=== PATIENT | male | born 1935 | race Caucasian/White ===

== ENCOUNTER 2018-01-20 16:41 | Inpatient (IN) | payer MEDICARE ==
[~2018-01-20 16:41] MED LIST: Iopamidol 370 76% 50 ML VIAL FS ONE
[2018-01-20 17:34] LABS: #Eosinphils 0.3 thou/uL (0.0-0.7); #Lymphocytes 1.1 thou/uL (1.20-3.40); #Monocytes 0.7 thou/uL (0.11-0.59); #Neutrophils 3.7 thou/uL (1.40-6.50); %Basophils 0.5 % (0.0-1.0); %Eosinophils 4.9 % (0.0-10.0); %Lymphocytes 18.6 % (21.0-51.0); %Monocytes 12.1 % (0.0-10.0); %Neutrophils 63.9 % (42.0-75.0); Mean Corpuscular HGB CONC 33.1 g/dL (32.0-36.0); Mean Corpuscular Hemoglobin 32.8 pg (27.0-31.0); Mean Corpuscular Volume 99.4 fL (78.0-98.0); Mean Platelet Volume 7.3 fL (7.4-10.4); Platelet Count 174 thou/uL (130-400); RBC Distribution Width 12.9 % (11.5-14.5); Red Blood Cell (RBC) Count 3.05 mill/uL (4.70-6.10); White Blood Cell (WBC) Count 5.7 thou/uL (4.8-10.8)
[2018-01-20] MEDS ORDERED: Pantoprazole 40 MG VIAL ONE (17:39)
[2018-01-20 17:41] LABS: INR-International Normal Ratio 1.3; PTT 29.9 SEC (22.9-36.1); Prothrombin Time 16.4 SEC (12.0-14.7)
[2018-01-20] MEDS ORDERED: Pantoprazole 40 MG VIAL IVP SCH (17:45)
[2018-01-20 18:00] LABS: ALT (SGPT) 25 U/L (8-55); AST (SGOT) 29 U/L (5-34); Albumin 3.9 g/dL (3.4-4.8); Alkaline Phosphatase 84 U/L (40-150); Anion Gap 14 mmol/L (10-20); BUN (Urea Nitrogen) 47 mg/dL (8.4-25.7); Bilirubin, Total 0.5 mg/dL (0.2-1.2); Calc. Creatinine Clearance 0 mL/min (70-130); Calcium 9.8 mg/dL (7.8-10.44); Carbon Dioxide 26 mmol/L (23-31); Chloride 105 mmol/L (98-107); Estimated GFR-MDRD 41; Glucose 219 mg/dL (83-110); Potassium 4.3 mmol/L (3.5-5.1); Protein, Total 6.9 g/dL (5.8-8.1); Sodium 141 mmol/L (136-145)
[2018-01-20] MEDS ORDERED: Acetaminophen 325 MG TAB PO PRN (21:14)
[2018-01-20] MEDS ORDERED: Senokot S 8.6-50 MG TAB PO PRN (21:14)
[2018-01-20] MEDS ORDERED: Acetaminophen 650 MG Suppository PR PRN (21:14)
[2018-01-20] MEDS ORDERED: Dextrose 5% in Water 1,000 ML IV PRN (21:20)
[2018-01-20] MEDS ORDERED: Dextrose 50% Abboject 50 ML SYRINGE SLOW IVP PRN (21:20)
--- NOTE | 2018-01-20 21:52 | HP ---
PRIMARY CARE PHYSICIAN: Taina Blair MD CHIEF COMPLAINT: Black stools. HISTORY OF PRESENT ILLNESS: Mr. Faith is a pleasant 82-year-old gentleman who was seen at [facility] on 02/19/2018. He uses rivaroxaban for atrial fibrillation. He reports that over the last several weeks, he has had increasing stress because of both work as well as problems at home with his , who had recent str nida and probable dementia. He reports that one week ago, he started having black stools. I did not think much of it. He denies any use of iron supplements. He reports feeling lightheaded. He also r eports feeling shortness of breath on exertion. He reports that he lost 12 pounds in the last one mo nth, this was intentional. However, he reports that his abdomen has been growing in size. He had hi s blood work checked through his primary care provider and was advised to go to the emergency room be cause of low hemoglobin. Patient also reports on and off abdominal discomfort but is unable to mary cterize it further. REVIEW OF SYSTEMS: All other systems reviewed and found to be negative. PAST MEDICAL HISTORY: Atrial fibrillation, hypertension, diabetes mellitus type 2, and coronary alberto ry disease. His brush maker machine is Dr. Sinha. PAST SURGICAL HISTORY: Bilateral foot surgery, left knee surgery, cardiac stent, coronary artery byp ass graft, ablation, cataract surgery, inguinal hernia/umbilical surgery, and appendectomy. FAMILY HISTORY: No family history of premature coronary artery disease. SOCIAL HISTORY: Patient drinks two alcoholic drinks a day. He denies any tobacco use or recreationa l drug use. CODE STATUS: I discussed his code status. He is FULL CODE. ALLERGIES: No known drug allergies. CURRENT MEDICATIONS: Coreg 3.125 mg 2 times a day, metformin 500 mg 2 times a day, potassium chlorid e 10 mEq daily, glyburide 5 mg 2 times a day, torsemide 30 mg daily, and amiodarone 100 mg at bedtime . PHYSICAL EXAMINATION: GENERAL: Mr. Faith is awake and alert, not in acute distress. VITAL SIGNS: Blood pressure is 138/64, pulse 65, respiratory rate 16, and oxygen saturation 95% on r oom air. He is afebrile. EYES: No scleral icterus. No conjunctival pallor. ENT: Moist mucosal membranes, no oropharyngeal erythema or exudate. NECK: Supple, nontender, trachea is midline. RESPIRATORY: Accessory muscles of breathing are not active. Chest wall movements are symmetric bila terally. LUNGS: Clear to auscultation, without wheeze, rhonchi, or crepitations. CARDIOVASCULAR: S1 and S2 are heard, regular. Peripheral pulses palpable. No carotid bruit, no per icardial rub. ABDOMEN: Mild diffuse abdominal tenderness. No guarding or rigidity, bowel sounds heard, no hepatom egaly, no splenomegaly. LYMPHATIC: No cervical lymphadenopathy. SKIN: No rashes or subcutaneous nodules. NEUROLOGIC: Cranial nerves II through XII intact. Deep tendon reflexes are 2+. PSYCHIATRIC: Normal mood, normal affect, patient is oriented to person, place and time. LABORATORY DATA: Mr. Faith's labs and investigations were reviewed. He had an electrocardiogram , which shows normal sinus rhythm, no ST changes to suggest an acute coronary syndrome. He has rehana l white count, macrocytic anemia with hemoglobin 10.0, hemoglobin was 13.4 in 07/2017, normal platele t count. INR 1.3, normal electrolytes, elevated blood urea nitrogen of 47, elevated creatinine of 1. 61, creatinine was 1.38 on 01/19/2018, and 1.52 on 09/29/2017 and an unremarkable liver profile. ASSESSMENT AND PLAN: Mr. Faith is a pleasant 82-year-old gentleman who was seen at [facility] on 01/20/2018. His problem list includes: 1. Anemia of acute blood loss. Mr. Faith is presenting with anemia of acute blood loss in the c ontext of using rivaroxaban for atrial fibrillation. He will be admitted to the hospital for further management. We will start him on PPI drip. I will consult GI Service for opinion and help with man agement. 2. Symptomatic anemia: We will recheck hemoglobin and transfuse as needed. 3. History of atrial fibrillation. Rivaroxaban will be held because of GI bleed. We will consult C ardiology Service for management of atrial fibrillation while he is in the hospital. 4. Coronary artery disease: Appears to be stable. 5. Diabetes mellitus, type 2: Start Accu-Cheks and insulin sliding scale. 6. Hypertension: Monitor vital signs, titrate antihypertensives as needed. Many thanks for allowing me to participate in your patient's care. Please feel free to contact me wi th any questions or concerns. LEVEL OF RISK: Moderate. LEVEL OF COMPLEXITY: Moderate.
[2018-01-20 22:03] LABS: Hemoglobin 8.6 g/dL (14.0-18.0)
--- NOTE | 2018-01-20 22:47 | CT ---
CT OF THE ABDOMEN AND PELVIS WITH IV CONTRAST; 01/20/18 INDICATION: History of abdominal pain. FINDINGS: There is a small left pleural effusion. There is mild bibasilar atelectasis. There is a small gastric diverticulum off the posterior cardia. There is a small hiatal hernia. There are tiny hypodensities involving the right hepatic lobe, difficult to characterize due to their size. Adrenal glands appear within normal limits. There is a 3.6 cm cyst involving the superior pole of the right kidney. No drainable fluid collection is evident. The bladder is unremarkable. There is scattered diverticula involving the colon without evidence of active diverticulitis. There is a moderate amount of retained stool within the colon. There is scattered degenerative and osteoarthritic change. No definite acute osseous abnormality is e vident. IMPRESSION: 1. No CT evidence to explain the patient's abdominal pain. 2. Tiny right hepatic lobe hypodensities, too small to characterize. 3. Small gastric diverticulum. 4. Small hiatal hernia. 5. Small left pleural effusion. 6. Right renal cyst. 7. Colonic diverticulosis. POS: [facility]
[2018-01-20 23:51] VITALS: BMI 24.9
[2018-01-21] MEDS: Pantoprazole 80 MG in Sodium Chloride 0.9% 100 ML IVP SCH (04:42)
[2018-01-21 05:21] LABS: #Eosinphils 0.3 thou/uL (0.0-0.7); #Lymphocytes 1.1 thou/uL (1.20-3.40); #Monocytes 0.8 thou/uL (0.11-0.59); #Neutrophils 3.7 thou/uL (1.40-6.50); %Basophils 0.6 % (0.0-1.0); %Eosinophils 4.8 % (0.0-10.0); %Lymphocytes 18.6 % (21.0-51.0); %Monocytes 14.1 % (0.0-10.0); Hemoglobin 9.1 g/dL (14.0-18.0); Mean Corpuscular HGB CONC 32.9 g/dL (32.0-36.0); Mean Platelet Volume 7.7 fL (7.4-10.4); Platelet Count 150 thou/uL (130-400); RBC Distribution Width 12.7 % (11.5-14.5); Red Blood Cell (RBC) Count 2.76 mill/uL (4.70-6.10)
[2018-01-21 05:38] LABS: Anion Gap 12 mmol/L (10-20); BUN (Urea Nitrogen) 42 mg/dL (8.4-25.7); Calc. Creatinine Clearance 52 mL/min (70-130); Calcium 9.2 mg/dL (7.8-10.44); Carbon Dioxide 26 mmol/L (23-31); Chloride 106 mmol/L (98-107); Estimated GFR-MDRD 49; Glucose 212 mg/dL (83-110); Potassium 4.3 mmol/L (3.5-5.1); Sodium 140 mmol/L (136-145)
[2018-01-21] MEDS ORDERED: Amiodarone 200 MG TAB PO SCH (10:00)
--- NOTE | 2018-01-21 10:12 | CON ---
DATE OF CONSULTATION: 01/21/2018 REASON FOR CONSULTATION: 1. Gastrointestinal bleeding 2. History of atrial fibrillation. HISTORY OF PRESENT ILLNESS: Mr. Faith is a delightful 82-year-old gentleman who was admitted to the hospital after having recurrent black stools. He has been transferred here for further evaluatio n. The patient also has been having abdominal pain. From a cardiac standpoint, the patient does have a previous cardiac history. He did undergo coronary artery bypass grafting in the past for multivessel coronary disease. He has also undergone stenting in the left anterior descending artery in 2001. The bypass surgery was done previously. He did und ergo cardiac catheterization 12/2011 with multi-vessel coronary disease. The patient has also undergone atrial fibrillation ablation in 2014 and also atrial flutter ablation. The patient does have history of congestive heart failure, systolic, with most recent ejection fracti on 30-35%. Clinically, stable. The coronary artery bypass grafting was done in the past. We will attempt to obtain the dates. He d id undergo cardioversion in the past, I know at least in 2016 that was done. Reviewing the records, he did undergo coronary artery bypass grafting by Dr. Mahajan in 2011 for unstable angina, he had left main and 3-vessel coronary artery disease, had bypass x5 internal mammary in sequence to the mid and distal LAD, vein graft to the ramus, vein graft to the first obtuse marginal, vein graft to the dist al right coronary artery. MEDICATIONS: Medications which were listed most recently in the office are very different from what is listed in his medicine list here. The listed medicine most recently in our office with amiodaron e 100 mg a day, aspirin 81 mg a day, Savaysa 60 mg a day, but now he says he is on Xarelto, Torsemide 10 mg a day, lisinopril 5 mg a day, carvedilol 3.125 mg a day. Diltiazem is not listed. We will ne ed to further check his medicine list. ALLERGIES: Not known. REVIEW OF SYSTEMS: CONSTITUTIONAL: No significant weight gain or loss. VISION: No changes. HEARING: No changes. PULMONARY: No cough or wheezing. GASTROINTESTINAL: Positive for black stools. SKIN: No rashes. NEUROLOGIC: No unilateral weakness or numbness. PSYCHIATRIC: No unusual depression or anxiety. HEMATOLOGIC: No unusual bruising. GENITOURINARY: No burning with urination. PHYSICAL EXAMINATION: GENERAL: This is a pleasant elderly gentleman resting comfortably, no complaints. VITAL SIGNS: Blood pressure 160/70, pulse 58 regular. HEENT: Eyes; sclerae nonicteric. Mouth; mucous membranes moist. NECK: Supple, no lymphadenopathy. LUNGS: Clear, no wheezing, rales or rhonchi. CARDIAC: Normal S1, normal S2. There is no murmur, rub or gallop. ABDOMEN: Soft, nontender, no hepatosplenomegaly. EXTREMITIES: Warm, dry. No clubbing or cyanosis. There is no edema. PERTINENT LABORATORY AND X-RAY FINDINGS: Creatinine initially was 1.6, followed by 1.39. EKG sinus rhythm with what looks like a left bundle branch block, QRS 0.134. ASSESSMENT: 1. Congestive heart failure, systolic, chronic. 2. Left bundle branch block. 3. Currently in sinus rhythm. 4. Paroxysmal atrial fibrillation. 5. Gastrointestinal bleeding. PLAN: 1. I agree with holding anticoagulant and aspirin. 2. Proceed with endoscopy. 3. We will need to clarify medication list. The medicine list in the chart seems to be very differe nt from what is listed in his previous notes. The emergency room medicine list appears more accurate . 4. We will wait for results of endoscopy. We will follow with you. He is also on intravenous augusto n pump inhibitor.
--- NOTE | 2018-01-21 10:54 | PDOC.PN ---
- Subjective Encounter Start Date: 01/21/18 Encounter Start Time: 10:51 Mr. Faith was seen today in follow-up of GI bleed. He says he feels a bit tired and weak, but otherwise ok. - Objective Resuscitation Status: Resuscitation Status FULL:Full Resuscitation MAR Reviewed: Yes Vital Signs & Weight: Vital Signs (12 hours) Temp Pulse Resp BP Pulse Ox 01/21/18 08:20 97.6 F 58 L 20 161/73 H 98 01/21/18 04:50 98.1 F 64 18 149/72 H 96 01/20/18 23:30 97.9 F 63 18 164/77 H 97 Weight Weight 199 lb 9 oz I&O: 01/20/18 01/21/18 01/22/18 06:59 06:59 06:59 Intake Total 0 Output Total 225 Balance -225 Result Diagrams: 01/21/18 04:27 01/21/18 04:27 Additional Labs: Accuchecks 01/21/18 05:35 POC Glucose 217 H Phys Exam - Physical Examination HEENT: PERRLA Respiratory: no wheezing, no rales, no rhonchi, clear to auscultation bilateral Cardiovascular: RRR, no significant murmur, no rub Gastrointestinal: soft, non-tender, no distention, positive bowel sounds Musculoskeletal: no edema, pulses present Dx/Plan (1) Melena Code(s): K92.1 - MELENA Status: Acute (2) Atrial fibrillation Code(s): I48.91 - UNSPECIFIED ATRIAL FIBRILLATION Status: Chronic (3) Diabetes mellitus type 2 in obese Code(s): E11.69 - TYPE 2 DIABETES MELLITUS WITH OTHER SPECIFIED COMPLICATION; E66.9 - OBESITY, UNSPECIFIED Status: Chronic (4) Coronary artery disease Code(s): I25.10 - ATHSCL HEART DISEASE OF [place] CORONARY ARTERY W/O ANG PCTRS Status: Chronic (5) Hypertension Code(s): I10 - ESSENTIAL (PRIMARY) HYPERTENSION Status: Chronic - Plan * Melena and GI bleed- continue PPI- and continue to monitor his H&H- transfuse if HGB drops below 7.0 or if symptomatic * Awaiting GI input * AFIB- his heart rate is stable- Xarelto is on hold- Cardiology is consulted * DM- Continue SSI while NPO * CAD- stable. * HTN- blood pressure is a bit elevated- will add Hydralazine and Labetolol PRN
[2018-01-21] MEDS ORDERED: Labetalol HCl 100 MG/20 ML VIAL SLOW IVP PRN (10:58)
[2018-01-21] MEDS ORDERED: hydrALAZINE 20 MG/ML VIAL SLOW IVP PRN (10:58)
[2018-01-21] MEDS ORDERED: GoLYTELY 4,000 ml Bottle PO SCH (16:00)
[2018-01-21] MEDS: Carvedilol 3.125 MG TAB PO SCH (17:10)
--- NOTE | 2018-01-21 19:10 | CON ---
DATE OF CONSULTATION: 01/21/2018. CHIEF COMPLAINT: Black stools. HISTORY OF PRESENT ILLNESS: Mr. Faith is an 82-year-old man who is on Xarelto for history of par oxysmal atrial fibrillation and CHF who has noticed black stools over the last week. He has 1 bowel movement per day every day at 5:30 a.m. Over the last week, it was gradually becoming darker and savannah ker and he saw his primary care physician who advised to come on to [facility] to get this checked out mor ofelia immediately. He has had no abdominal pain. He has lost from 210 pounds down to 193 pounds over e last couple of months. He states that he is doing this on purpose with a decrease in volume of his meals. He has had also hard stools over the last week, having to strain at bowel movements more. Surinder gilbert has had some abdominal bloating and generalized discomfort along with that. His last colonoscopy w as maybe around 12 years ago at the [place]. PAST MEDICAL HISTORY: Coronary artery disease, congestive heart failure, diabetes mellitus type 2, h ypertension. PAST SURGICAL HISTORY: Coronary artery bypass graft, inguinal hernia repair with umbilical hernia re pair, cataract surgery, appendectomy, knee surgery, foot surgery. FAMILY HISTORY: Negative for GI malignancies. SOCIAL HISTORY: He has a couple of drinks of alcohol per day. No smoking, no drugs. ALLERGIES: No known drug allergies. MEDICATIONS: Prior to admission, 1. Coreg. 2. Metformin. 3. Potassium chloride. 4. Glyburide. 5. Torsemide. 6. Amiodarone. 7. Xarelto. REVIEW OF SYSTEMS: Negative x10 systems reviewed except as stated in history of present illness. PHYSICAL EXAMINATION: VITAL SIGNS: Temperature is 97.6, pulse 58, blood pressure 161/73. GENERAL: He is in no acute distress. He is alert and oriented x3. HEENT: Eyes have no scleral icterus. Oropharynx is clear, without lesions. NECK: No cervical or supraclavicular lymphadenopathy. LUNGS: Clear to auscultation bilaterally. HEART: Regular rate and rhythm without murmur. ABDOMEN: Soft, nontender, nondistended, bowel sounds are present. EXTREMITIES: No lower extremity edema. LABORATORY DATA: White blood cell count 6.0, hemoglobin 9.1. Baseline hemoglobin from last July was 13.4, his MCV is 100, platelets 150. INR 1.3, creatinine 1.39, bilirubin 0.5, AST 29, ALT 25, alkali ne phosphatase 84, ferritin 144, albumin 3.9. He had a CT scan of the abdomen and pelvis which was unremarkable overall. A small hiatal hernia was noted and diverticulosis of the colon and a small gastric diverticulum were seen. IMPRESSION: 1. Melena. He has had black stools once a day for the last week. He does have anemia with a drop i n his baseline hemoglobin from last July of 13.4 to 9.1 now. It is not clear if this is truly an acut e overt bleed. On rectal exam now, his stool was more of a dark brown than a true melena. He is mac rocytic with a normal ferritin. He is on Xarelto and we want to rule out a significant bleeding sour ce. 2. Paroxysmal atrial fibrillation and congestive heart failure on Xarelto with his last dose of Xare lto the night before last. RECOMMENDATIONS: EGD and colonoscopy tomorrow morning. We will start a clear liquid diet and bowel prep today.
[2018-01-22] MEDS: Pantoprazole 80 MG in Sodium Chloride 0.9% 100 ML IVP SCH (00:01)
[2018-01-22 05:23] LABS: #Lymphocytes 0.8 thou/uL (1.20-3.40); #Monocytes 0.8 thou/uL (0.11-0.59); #Neutrophils 4.5 thou/uL (1.40-6.50); %Basophils 0.3 % (0.0-1.0); %Eosinophils 0.8 % (0.0-10.0); %Lymphocytes 13.1 % (21.0-51.0); %Monocytes 13.2 % (0.0-10.0); %Neutrophils 72.6 % (42.0-75.0); Hemoglobin 7.9 g/dL (14.0-18.0); Mean Corpuscular HGB CONC 32.4 g/dL (32.0-36.0); Mean Corpuscular Hemoglobin 32.4 pg (27.0-31.0); Mean Platelet Volume 7.7 fL (7.4-10.4); Platelet Count 146 thou/uL (130-400); RBC Distribution Width 12.7 % (11.5-14.5); Red Blood Cell (RBC) Count 2.42 mill/uL (4.70-6.10); White Blood Cell (WBC) Count 6.3 thou/uL (4.8-10.8)
[2018-01-22] MEDS: Carvedilol 3.125 MG TAB PO SCH ×2 (06:22→17:12)
[2018-01-22] MEDS ORDERED: PHENYLEPHRINE-NS 100 MCG/ML 10 ML SYRINGE ONE (11:39)
[2018-01-22] MEDS ORDERED: ePHEDrine/0.9% NaCl/PF SYRINGE 50 mg/10 ml ONE (11:39)
[2018-01-22] MEDS ORDERED: PROPOFOL 200 MG/20 ML VIAL ONE (11:39)
--- NOTE | 2018-01-22 12:41 | PDOC.PN ---
- Subjective Encounter Start Date: 01/22/18 Encounter Start Time: 09:10 Mr. Faith was seen today in follow-up of GI Bleed. He notes some dark stools until about 3:00AM this morning. He says however he feels better today , and denies feeling weakn tired or short of breath, nor dizzy or lightheaded. - Objective Resuscitation Status: Resuscitation Status FULL:Full Resuscitation MAR Reviewed: Yes Vital Signs & Weight: Vital Signs (12 hours) Temp Pulse Resp BP Pulse Ox 01/22/18 07:39 98 F 69 16 132/77 95 01/22/18 04:00 98.6 F 69 20 118/62 94 L Weight Weight 198 lb 8 oz I&O: 01/21/18 01/22/18 01/23/18 06:59 06:59 06:59 Intake Total 0 5790 Output Total 225 1350 Balance -225 4440 Result Diagrams: 01/22/18 04:17 01/21/18 04:27 Additional Labs: Accuchecks 01/22/18 01/21/18 01/21/18 06:12 20:21 17:20 POC Glucose 202 H 244 H 363 H Phys Exam - Physical Examination HEENT: PERRLA Respiratory: no wheezing, no rales, no rhonchi, clear to auscultation bilateral Cardiovascular: RRR, no significant murmur, no rub no gallop Gastrointestinal: soft, non-tender, no distention, positive bowel sounds Musculoskeletal: no edema, pulses present + chronic venous stasis changes Dx/Plan (1) Melena Code(s): K92.1 - MELENA Status: Acute (2) Atrial fibrillation Code(s): I48.91 - UNSPECIFIED ATRIAL FIBRILLATION Status: Chronic (3) Diabetes mellitus type 2 in obese Code(s): E11.69 - TYPE 2 DIABETES MELLITUS WITH OTHER SPECIFIED COMPLICATION; E66.9 - OBESITY, UNSPECIFIED Status: Chronic (4) Coronary artery disease Code(s): I25.10 - ATHSCL HEART DISEASE OF [place] CORONARY ARTERY W/O ANG PCTRS Status: Chronic (5) Hypertension Code(s): I10 - ESSENTIAL (PRIMARY) HYPERTENSION Status: Chronic - Plan * Melena- patient's H&H is 7.9 this morning, a significant drop since admission , he is however asymptomatic- will continue to monitor, and transfuse if necessary. He will have EGD and Colonoscopy this morning * AFIB- his hear rate has been stable- continue to hold Xarelto * DM- blood glucose is a bit elevated- will re-start his home medications once he is tolerating p.o. ( Metformin and Glyburide ). * HTN- blood pressure is stable
--- NOTE | 2018-01-22 12:47 | OP ---
DATE OF PROCEDURE: 01/21/2018 PROCEDURE: Esophagogastroduodenoscopy and colonoscopy with snare polypectomy. PREOPERATIVE DIAGNOSES: Gastrointestinal bleed and anemia. OPERATIVE NOTE: Informed consent was obtained from the patient. He was sedated with total intraveno us anesthesia. The bite block was placed and the endoscope was advanced easily to the second portion of the duodenum and retroflexion was performed in the stomach. The esophagus was normal. The GE ju nction was normal. The stomach was normal including retroflexed views. The pylorus and first and se cond portions of the duodenum were normal. The stomach did not initially distend well, but ultimatel y adequate views were obtained. The patient was turned around. Rectal exam was performed and was no rmal. The colonoscope was advanced to the cecum where the ileocecal valve and appendiceal orifice we re clearly identified. There was diverticulosis throughout the left colon. A 4 mm polyp was removed by cold snare polypectomy from the ascending colon. The remainder of the colonic mucosa was normal. There was old yellow and green stool scattered in the colon without any stigmata of recent bleeding . IMPRESSION: 1. Normal esophagogastroduodenoscopy. 2. Left-sided diverticulosis. 3. A 4 mm polyp removed from the ascending colon by cold snare. 4. Otherwise, normal colonoscopy to the cecum. 5. No stigmata of recent bleeding. RECOMMENDATIONS: 1. Check the trend of the hemoglobin tomorrow. 2. Change to oral pantoprazole. 3. Await histopathology. 4. If you develop signs of overt bleeding, then check a bleeding scan.
[2018-01-22] MEDS: Amiodarone 200 MG TAB PO SCH (13:16)
[2018-01-22] MEDS: HumaLOG 300 UNITS/3 ML VIAL SC PRN (17:13)
[2018-01-23 05:52] LABS: #Eosinphils 0.1 thou/uL (0.0-0.7); #Lymphocytes 0.9 thou/uL (1.20-3.40); #Monocytes 0.7 thou/uL (0.11-0.59); #Neutrophils 3.9 thou/uL (1.40-6.50); %Basophils 0.3 % (0.0-1.0); %Eosinophils 2.3 % (0.0-10.0); %Lymphocytes 15.4 % (21.0-51.0); %Monocytes 12.9 % (0.0-10.0); %Neutrophils 69.2 % (42.0-75.0); Hemoglobin 7.9 g/dL (14.0-18.0); Mean Corpuscular HGB CONC 32.8 g/dL (32.0-36.0); Mean Corpuscular Hemoglobin 33.1 pg (27.0-31.0); Platelet Count 135 thou/uL (130-400); RBC Distribution Width 12.6 % (11.5-14.5); White Blood Cell (WBC) Count 5.6 thou/uL (4.8-10.8)
[2018-01-23 06:18] LABS: ALT (SGPT) 13 U/L (8-55); AST (SGOT) 19 U/L (5-34); Alkaline Phosphatase 58 U/L (40-150); Anion Gap 10 mmol/L (10-20); BUN (Urea Nitrogen) 19 mg/dL (8.4-25.7); Calc. Creatinine Clearance 66 mL/min (70-130); Calcium 8.3 mg/dL (7.8-10.44); Carbon Dioxide 27 mmol/L (23-31); Chloride 100 mmol/L (98-107); Estimated GFR-MDRD 62; Globulin 2.4 g/dL (2.4-3.5); Glucose 186 mg/dL (83-110); Potassium 3.2 mmol/L (3.5-5.1); Protein, Total 5.4 g/dL (5.8-8.1); Sodium 134 mmol/L (136-145)
[2018-01-23] MEDS: Amiodarone 200 MG TAB PO SCH (08:34)
[2018-01-23] MEDS: Carvedilol 3.125 MG TAB PO SCH ×2 (08:36→17:31)
[2018-01-23] MEDS: HumaLOG 300 UNITS/3 ML VIAL SC PRN ×3 (08:36→17:32)
[2018-01-23] MEDS ORDERED: Potassium Chloride 20 MEQ TAB PO SCH (11:00)
--- NOTE | 2018-01-23 12:24 | PDOC.PN ---
- Subjective Encounter Start Date: 01/23/18 Encounter Start Time: 12:22 Mr. Duggan was seen today in follow-up of GI bleed. He says he feels fine. He has not noted any further bleeding. - Objective Resuscitation Status: Resuscitation Status FULL:Full Resuscitation MAR Reviewed: Yes Vital Signs & Weight: Vital Signs (12 hours) Temp Pulse Resp BP BP Pulse Ox 01/23/18 11:41 98 F 59 L 18 139/63 98 01/23/18 08:29 98.0 F 62 17 142/63 H 98 01/23/18 04:00 99.2 F 60 18 111/56 L 95 Weight Weight 204 lb 14.4 oz I&O: 01/22/18 01/23/18 01/24/18 06:59 06:59 06:59 Intake Total 5790 1240 Output Total 1350 Balance 4440 1240 Result Diagrams: 01/23/18 04:30 01/23/18 04:30 Additional Labs: Accuchecks 01/23/18 01/22/18 01/22/18 06:12 20:32 16:57 POC Glucose 198 H 277 H 337 H 01/22/18 13:01 POC Glucose 200 H Phys Exam - Physical Examination HEENT: PERRLA Respiratory: no wheezing, no rales, no rhonchi, clear to auscultation bilateral Cardiovascular: RRR, no rub 2/6 systolic murmur Gastrointestinal: soft, non-tender, no distention, positive bowel sounds Musculoskeletal: no edema Dx/Plan (1) Melena Code(s): K92.1 - MELENA Status: Acute (2) Atrial fibrillation Code(s): I48.91 - UNSPECIFIED ATRIAL FIBRILLATION Status: Chronic (3) Diabetes mellitus type 2 in obese Code(s): E11.69 - TYPE 2 DIABETES MELLITUS WITH OTHER SPECIFIED COMPLICATION; E66.9 - OBESITY, UNSPECIFIED Status: Chronic (4) Coronary artery disease Code(s): I25.10 - ATHSCL HEART DISEASE OF [place] CORONARY ARTERY W/O ANG PCTRS Status: Chronic (5) Hypertension Code(s): I10 - ESSENTIAL (PRIMARY) HYPERTENSION Status: Chronic - Plan * Melena- His H&H has remained stable. Colonoscopy, and EGD results noted. He had some mild Diverticulosis in the right colon, but signs of any active bleeding * AFIB- his heart rate has been stable. He is off anticoagulation- ? when to re- start * HTN - blood pressure is stable * DM- blood glucose is stable. * Possible discharge soon
--- NOTE | 2018-01-23 13:27 | PRG ---
DATE OF SERVICE: 01/23/2018. SUBJECTIVE: Mr. Faith has had no further overt bleeding. No abdominal pain, no nausea or vomiti ng. He is tolerating a diet well. OBJECTIVE: VITAL SIGNS: Temperature 98.0, pulse 59, blood pressure 139/63. GENERAL: He is in no acute distress, alert and oriented x3. LUNGS: Clear to auscultation bilaterally. HEART: Regular rate and rhythm without murmur. ABDOMEN: Soft, nontender, nondistended. Bowel sounds are present. EXTREMITIES: No lower extremity edema. IMPRESSION: Anemia and melena. Hemoglobin is stable. The EGD was normal. Colonoscopy showed some diverticulosis and a small polyp removed from the ascending colon. No significant bleeding source wa s seen. RECOMMENDATIONS: 1. Restart on anticoagulation today with monitoring of his hemoglobin. He did start on iron supplem ent as well. 2. If his hemoglobin remains stable, he can potentially discharge home tomorrow. He can follow up i n GI clinic to have his hemoglobin rechecked and monitor for further bleeding. If he has evidence of further overt bleeding on Xarelto, then a small bowel capsule endoscopy could be considered.
[2018-01-23] MEDS ORDERED: Rivaroxaban 10 MG TAB PO SCH (18:00)
[2018-01-23] MEDS: Azelastine 137 MCG/Spray 30 ML NS SCH (20:41)
[2018-01-23] MEDS: metFORMIN 500 MG TAB PO SCH (20:44)
[2018-01-23] MEDS ORDERED: EDOXABAN TOSYLATE 60 MG PO SCH (21:00)
[2018-01-23] MEDS ORDERED: Amiodarone 200 MG TAB PO SCH (21:00)
[2018-01-24 08:02] LABS: Hemoglobin 8.6 g/dL (14.0-18.0)
[2018-01-24 08:41] VITALS: BP 156/70; TEMP 98.4
[2018-01-24] MEDS: Carvedilol 3.125 MG TAB PO SCH (08:43)
[2018-01-24] MEDS: Amiodarone 200 MG TAB PO SCH (08:43)
[2018-01-24] MEDS: metFORMIN 500 MG TAB PO SCH (08:43)
[2018-01-24] MEDS: Azelastine 137 MCG/Spray 30 ML NS SCH (08:44)
--- NOTE | 2018-01-24 11:15 | PDOC.PN ---
- Subjective Encounter Start Date: 01/24/18 Encounter Start Time: 11:10 Mr. Faith was seen today in follow-up of GI bleed. He has not noted any further bleeding.He denies any abdominal pain. - Objective Resuscitation Status: Resuscitation Status FULL:Full Resuscitation MAR Reviewed: Yes Vital Signs & Weight: Vital Signs (12 hours) Temp Pulse Resp BP Pulse Ox 01/24/18 08:38 98.4 F 68 18 156/70 H 99 01/24/18 04:55 98.6 F 60 20 135/63 97 Weight Weight 207 lb 9.6 oz I&O: 01/23/18 01/24/18 01/25/18 06:59 06:59 06:59 Intake Total 1240 1500 Balance 1240 1500 Result Diagrams: 01/24/18 07:54 01/23/18 04:30 Additional Labs: Accuchecks 01/24/18 01/23/18 01/23/18 06:09 20:51 17:07 POC Glucose 190 H 207 H 241 H 01/23/18 11:12 POC Glucose 286 H Phys Exam - Physical Examination HEENT: PERRLA Respiratory: no wheezing, no rales, no rhonchi, clear to auscultation bilateral Cardiovascular: RRR, no significant murmur, no rub Gastrointestinal: soft, non-tender, no distention, positive bowel sounds Musculoskeletal: no edema Dx/Plan (1) Melena Code(s): K92.1 - MELENA Status: Acute (2) Atrial fibrillation Code(s): I48.91 - UNSPECIFIED ATRIAL FIBRILLATION Status: Chronic (3) Diabetes mellitus type 2 in obese Code(s): E11.69 - TYPE 2 DIABETES MELLITUS WITH OTHER SPECIFIED COMPLICATION; E66.9 - OBESITY, UNSPECIFIED Status: Chronic (4) Coronary artery disease Code(s): I25.10 - ATHSCL HEART DISEASE OF [place] CORONARY ARTERY W/O ANG PCTRS Status: Chronic (5) Hypertension Code(s): I10 - ESSENTIAL (PRIMARY) HYPERTENSION Status: Chronic - Plan * Melena- ?etiology- His H&H remained stableovernight * He is stable for discharge home.
--- NOTE | 2018-01-24 11:48 | DIS ---
DATE OF ADMISSION: 01/20/2018 DATE OF DISCHARGE: 01/24/2018 PRIMARY CARE PHYSICIAN: Dr. Taina Blair. DISCHARGE DISPOSITION: Home. PRIMARY DISCHARGE DIAGNOSES: 1. Melena. 2. Acute blood loss anemia. 3. Atrial fibrillation on chronic anticoagulation. 4. Hypertension. 5. Diabetes mellitus, type 2. 6. Coronary artery disease. DISCHARGE MEDICATIONS: He is to continue his same medications. These include Xarelto 20 mg daily, c arvedilol 3.125 mg twice a day, Demadex 30 mg as directed, Klor-Con 10 mEq daily, Protonix 40 mg sandy y, pantoprazole 40 mg daily, metformin 500 mg twice a day, lisinopril 10 mg daily, glyburide 5 mg twi ce a day, Savaysa 60 mg at bedtime, Astelin nasal spray twice a day, amiodarone 100 mg at bedtime. PROCEDURES DONE DURING ADMISSION: The patient had an upper endoscopy and colonoscopy. The EGD was n ormal. On the colonoscopy, there was evidence of left-sided diverticulosis. There was a 4 mm polyp, which was removed from the ascending colon by cold snare. Otherwise, no other abnormalities and no stigmata of recent bleeding. CODE STATUS: FULL CODE. ALLERGIES: To DIAZEPAM. HOSPITAL COURSE: Mr. Faith is a pleasant 82-year-old gentleman who presented to the emergency ro om with complaints of black stools. He was also feeling extremely weak and says that he could barely get up out of the chair prior to admission. When he was evaluated in the ER, he was found to have a hemoglobin of 10 and his hemoglobin dropped as low as 7.9. He was admitted and evaluated by Gastroe nterology. He underwent EGD and colonoscopy. The results as previously mentioned. There was no fátima dence of bleeding. He did have some diverticulosis, but no evidence of bleeding from this area. His H&H remained stable. He was briefly taken off of Xarelto, but it was restarted at the time of disch arge. He is to follow up with Dr. Phelps in approximately 3 days and have an H&H drawn at that time. If he rebleeds while he is on Xarelto, then the plan would be to undergo a capsule study. The patie nt is therefore discharged home and to have close outpatient followup.
== END 2018-01-24 12:35 | disposition home or self-care (01) | DRG 378 ==
LOC: ERS 16:41 → 2NO 20:11
PROVIDERS: ADMIT Internal Medicine; ATTEND Internal Medicine
PROC: 0DJ08ZZ Inspection of Upper Intestinal Tract, Via Natural or Artificial Opening Endoscopic (ICD-10-PCS; principal; 2018-01-21)
PROC: 0DBK8ZZ Excision of Ascending Colon, Via Natural or Artificial Opening Endoscopic (ICD-10-PCS; 2018-01-21)
DX: K92.1 Melena (principal); D62 Acute posthemorrhagic anemia; I50.22 Chronic systolic (congestive) heart failure; I48.2 Chronic atrial fibrillation; Z79.01 Long term (current) use of anticoagulants; E11.9 Type 2 diabetes mellitus without complications; Z79.84 Long term (current) use of oral hypoglycemic drugs; I25.10 Atherosclerotic heart disease of native coronary artery without angina pectoris; Z88.8 Allergy status to other drugs, medicaments and biological substances; K57.30 Diverticulosis of large intestine without perforation or abscess without bleeding; Z95.5 Presence of coronary angioplasty implant and graft; Z95.1 Presence of aortocoronary bypass graft; K63.5 Polyp of colon; I11.0 Hypertensive heart disease with heart failure; I48.0 Paroxysmal atrial fibrillation; I44.7 Left bundle-branch block, unspecified
CPT/HCPCS: 36415; 36416; 74177; 80048; 80053; 82043; 82274; 82728; 83036; 84443; 85014; 85018; 85025; 85610; 85730; 86850; 86900; 86901; 87086; 88305; 93005; 96374; C9113; J7050

== ENCOUNTER 2018-08-08 02:44 | Observation (INO) | payer MEDICARE ==
[2018-08-08 03:12] LABS: #Eosinphils 0.2 thou/uL (0.0-0.7); #Lymphocytes 0.9 thou/uL (1.20-3.40); #Monocytes 0.6 thou/uL (0.11-0.59); #Neutrophils 3.9 thou/uL (1.40-6.50); %Basophils 0.5 % (0.0-1.0); %Eosinophils 3.1 % (0.0-10.0); %Lymphocytes 15.9 % (21.0-51.0); %Monocytes 10.1 % (0.0-10.0); %Neutrophils 70.4 % (42.0-75.0); Hemoglobin 12.8 g/dL (14.0-18.0); Mean Corpuscular HGB CONC 32.5 g/dL (32.0-36.0); Mean Corpuscular Hemoglobin 30.9 pg (27.0-31.0); Mean Corpuscular Volume 95.2 fL (78.0-98.0); Mean Platelet Volume 8.2 fL (7.4-10.4); Platelet Count 121 thou/uL (130-400); RBC Distribution Width 13.8 % (11.5-14.5); Red Blood Cell (RBC) Count 4.15 mill/uL (4.70-6.10); White Blood Cell (WBC) Count 5.5 thou/uL (4.8-10.8)
[2018-08-08 03:36] LABS: ALT (SGPT) 17 U/L (8-55); AST (SGOT) 23 U/L (5-34); Albumin 4.1 g/dL (3.4-4.8); Alkaline Phosphatase 88 U/L (40-150); Anion Gap 17 mmol/L (10-20); BUN (Urea Nitrogen) 28 mg/dL (8.4-25.7); Bilirubin, Total 0.7 mg/dL (0.2-1.2); CK (CPK) 152 U/L (30-200); Calc. Creatinine Clearance 0 mL/min (70-130); Calcium 10.2 mg/dL (7.8-10.44); Carbon Dioxide 24 mmol/L (23-31); Chloride 103 mmol/L (98-107); Estimated GFR-MDRD 66; Glucose 165 mg/dL (83-110); Potassium 3.9 mmol/L (3.5-5.1); Protein, Total 7.1 g/dL (5.8-8.1); Sodium 140 mmol/L (136-145)
[2018-08-08] MEDS ORDERED: Acetaminophen 325 MG TAB PO PRN (06:05)
[2018-08-08] MEDS ORDERED: Ondansetron PF 4 MG/2 ML Vial IVP PRN (06:05)
[2018-08-08] MEDS ORDERED: Ondansetron ODT 4 MG TAB PO PRN (06:05)
[2018-08-08] MEDS ORDERED: Dextrose 5% in Water 1,000 ML IV PRN (06:33)
[2018-08-08] MEDS ORDERED: HumaLOG 300 UNITS/3 ML VIAL SC PRN (06:33)
[2018-08-08] MEDS ORDERED: Dextrose 50% Abboject 50 ML SYRINGE SLOW IVP PRN (06:33)
--- NOTE | 2018-08-08 07:25 | RAD ---
EXAM: Single view of the chest HISTORY: Chest pain COMPARISON: 11/29/2012 FINDINGS: Single view of the chest shows an enlarged but stable cardiomediastinal silhouette. The pa tient is status post sternotomy. Increased interstitial lung markings are stable. There is no evidence of consolidation, mass, or pleural effusion. The bones are unremarkable. IMPRESSION: No evidence of acute cardiopulmonary disease
--- NOTE | 2018-08-08 07:28 | HP ---
PRIMARY CARE DOCTOR: Dr. Taina Blair. TELEMARKETING SUPERVISOR: Dr. Sinha. CHIEF COMPLAINT: Chest pain. CODE STATUS: Full code. HISTORY OF PRESENT ILLNESS: This is -[id number] male patient with past medical history of coronary artery disease, status post CABG, atrial fibrillation status post cardiac ablation, hypertension, diabetes, came to the hospital after having chest pain that was mostly in the upper part of the chest, radiating to the left upper arm and the neck. The chest pain lasted for 1 day, it was on and off, but overnight it was very severe and he decided to come to the hospital. The patient follows with Dr. Sinha and was seen last time two months ago and he was stable. REVIEW OF SYSTEMS: CONSTITUTIONAL: No fever, chills, or generalized weakness. RESPIRATORY: No cough, sputum production, or shortness of breath. CARDIOVASCULAR: The patient has chest pain. No palpitation. GASTROINTESTINAL: No nausea. No vomiting, diarrhea, or abdominal pain. INSTRUCTOR PILOT: No dizziness, headache, or feeling lightheaded. Genitourinary: No burning on urination. EXTREMITIES: No leg swelling. All other systems were reviewed and negative except for the findings mentioned above. PAST MEDICAL HISTORY: Atrial fibrillation, hypertension, diabetes, coronary artery disease, hernia. PAST SURGICAL HISTORY: Bilateral hip surgery, left knee surgery, stent x1, CABG x5, ablation, cataracts, inguinal hernia, umbilical surgery, and surgical history of appendectomy. PSYCHIATRIC HISTORY: No previous psych history. SOCIAL HISTORY: No drugs. The patient had been smoking more than 10 years ago. FAMILY HISTORY: Reviewed and noncontributory to current presentation. ALLERGIES: NO KNOWN DRUG ALLERGIES. REPORTED MEDICATIONS: 1. Metformin. 2. Potassium chloride. 3. Glyburide. 4. Torsemide. 5. Ferrous sulfate. 6. . PHYSICAL EXAMINATION: VITAL SIGNS: On presentation, the patient has blood pressure 187/121 with heart rate 92, respiratory rate was 17, temperature 97.9. Pain 0/10 by the time of my examination, saturation 97%. GENERAL APPEARANCE: The patient is alert, oriented, not in acute distress. HEENT: Eyes, normal conjunctivae. Moist oral mucosa. Anicteric. No JVD. RESPIRATORY: Bilateral air entry. No rales. No wheezes. Symmetric expansion. CARDIOVASCULAR: Normal rate, regular rhythm. No murmurs. No gallop. No edema. ABDOMEN: Soft. Normal bowel sounds. MUSCULOSKELETAL: Baseline range of motion and strength. No tenderness. SKIN: Warm and intact. No pallor. No rash. No redness. Peripheral pulses are present. Capillary refill seems to be intact. NEUROLOGIC: No evidence of any new focal weakness. Cranial nerves seems to be intact. PSYCHIATRIC: The patient is in good mood. No anxiety. Optimal judgment. DIAGNOSTIC STUDIES: EKG, the patient has RBBB. X-ray has not been reported. Official report needs to be followed and was checked by myself. The patient has chronic changes with chronic scarring bilaterally. The patient has cardiomegaly and sternotomy. No other significant findings. LABORATORY DATA: Labs were reviewed. The patient has white count 5.5, hemoglobin 12.8, MCV 95.2, platelet count 121. Chemistry; sodium 140, potassium 3.9, chloride 103, carbon dioxide 34, anion gap 16, BUN 28, creatinine 1.07, GFR 66, glucose 165, calcium 10.2, total bilirubin 0.7, AST 23, ALT 17, alkaline phosphatase 88. CK 152, troponin 0.015. Serum total protein 7.1, albumin 4.1, globulin 3.0, albumin to globulin ratio is 1.4. ASSESSMENT AND PLAN: The patient will be placed in the hospital for the following medical problems. 1. Chest pain, rule out acute coronary syndrome. The patient follows with Dr. Sinha. He has a strong history of coronary artery disease and atrial fibrillation. We will consult Dr. Sinha for further recommendation since he has a high pretest probability. 2. Uncontrolled diabetes. The patient will be placed on sliding scale for optimal control. Reconcile home medications. 3. Atrial fibrillation. Reconcile home medications. Rate is controlled at this point. 4. Hypertensive urgency. The patient came with a very high blood pressure, which we also related to the chest pain that he developed. Reconcile home medications. IV p.r.n. medications as needed for optimal control. 5. Deep venous thrombosis prophylaxis. The patient is on chronic anticoagulation. Job ID: [id number]
[2018-08-08 07:42] LABS: Troponin I 0.025 ng/mL (< 0.028)
[2018-08-08 08:09] VITALS: BMI 23.8
[2018-08-08 10:37] LABS: Troponin I 0.018 ng/mL (< 0.028)
[2018-08-08] MEDS ORDERED: Regadenoson 0.4 MG/5 ML SYRINGE ONE (11:57)
--- NOTE | 2018-08-08 14:02 | NM ---
EXAM: Nuclear medicine cardiac perfusion examination with ejection fraction HISTORY: Chest pain TECHNIQUE: Rest images: 9.4 mCi technetium 99m sestamibi Stress images: 28.3 mCi of technetium 9M sestamibi; Lexiscan COMPARISON: 12/01/2012 FINDINGS: Tomographic images: No fixed or reversible perfusion defects. Gated images: Normal wall motion and ejection fraction of 48%. EDV: 165 mL LHR: 0.44 TID: 1.0 IMPRESSION: No evidence of ischemia
--- NOTE | 2018-08-08 15:53 | CON ---
DATE OF CONSULTATION: 08/08/2018 HISTORY OF PRESENT ILLNESS: Mr. Faith is a very pleasant gentleman with history of coronary artery bypass grafting with an episode of severe angina last night. Mr. Faith has had previous bypass surgery. He was at home. He has been having some vague discomfort in his chest, the left side of his chest, but last night had intense pain in the left side of his chest, into the left arm. He finally went to the emergency room. He was given nitroglycerin with relief and was transferred here. He has been pain-free since he has been here. PAST HISTORY: He did undergo coronary artery bypass grafting done in [address] Mahajan, had left main and three-vessel coronary artery disease, but he has had bypass x5 including internal mammary to the mid LAD and distal LAD, saphenous vein graft to the ramus, saphenous vein graft to the 1st obtuse marginal, and saphenous vein graft to distal right coronary artery. The patient also has had atrial fibrillation with a previous ablation. The patient has been maintained on apixaban 5 mg twice a day. He did have significant GI bleeding about 3 months ago. No source was found. Upper and lower endoscopy did not reveal a source indicating this is probably small intestinal bleed. There has been no recurrence. The patient otherwise has been doing fairly well. He is under lot of stress as his has progressive Alzheimer disease. She is living at home. MEDICATIONS: Glyburide, potassium, metformin, torsemide, fish oil, iron, and apixaban 5 mg twice a day. He was not on aspirin due to the history of gastrointestinal bleeding. PHYSICAL EXAMINATION: GENERAL: This is a pleasant elderly gentleman, no distress, feeling well now. VITAL SIGNS: Blood pressure 147/73, pulse 70. LUNGS: Clear. CARDIAC: Normal S1, normal S2. There is a 2/6 mid systolic murmur, sounds like aortic sclerosis. ABDOMEN: Soft and nontender. EXTREMITIES: No clubbing or cyanosis. No edema. DIAGNOSTIC STUDIES: Stress testing was negative. Troponin levels were negative, but they did go to 0.015, then 0.025, then 0.018 indicating this is probably angina. ASSESSMENT: 1. Episode of angina. 2. Normal stress test. 3. History of diastolic heart failure. 4. I believe he is statin intolerant. LDL is 109 back in 2018. 5. History of gastrointestinal bleeding. PLAN: 1. In view of the negative stress test, cardiac catheterization would not appear to be indicated at this point. 2. We will reduce Eliquis to 2.5 mg twice a day and add aspirin 81 mg a day, there is a recent trial showing this is a good option and may be the superior option in patients with continued angina. At some point, we will probably take him off the aspirin and back on apixaban 5 mg twice a day. Another option would be to try to implant a Watchman device, but at this point, medical therapy conservatively appears to be the most appropriate choice. Job ID: [id number]
--- NOTE | 2018-08-08 16:54 | PRG ---
DATE OF SERVICE: 08/08/2018 SUBJECTIVE: Mr. Faith is a very pleasant 82-year-old male with past medical history significant for coronary artery disease, status post 5-vessel CABG in 2011; hypertension; paroxysmal atrial fibrillation/flutter, status post ablation; and hypertension, who presented with an episode of chest pain radiating to the left arm. The patient was admitted for ACS rule out. His troponin was negative. His stress test showed no evidence of reversible ischemia. The patient was seen in consult with Dr. Sinha today. The patient is currently resting comfortably. He denies any chest pain or shortness of breath at this time. He denies any nausea or vomiting. Appetite is good, and he has no complaints at this time. OBJECTIVE: VITAL SIGNS: Blood pressure 137/78, pulse 57, O2 saturation is 100% on room air, and temperature 97.7. GENERAL: The patient is well-appearing, elderly gentleman, resting in bed, in no acute distress. HEENT: Head is atraumatic and normocephalic. Mucous membranes are moist. NECK: Trachea is midline. No JVD. No carotid bruits. CV: S1 and S2. Regular rate and rhythm with occasional ectopy. No appreciable murmurs, rubs, or gallops. LUNGS: Regular respiratory rate and pattern. Clear to auscultation bilaterally. ABDOMEN: Soft. Positive bowel sounds. Nontender. EXTREMITIES: No edema. +2 DP pulses bilaterally. Extremities are warm and well perfused. SKIN: Warm and dry. No rashes or abrasions. NEUROLOGIC: Cranial nerves 2 through 12 are intact. The patient is nonfocal. PSYCHIATRIC: Alert, awake, and oriented x3. Appropriate demeanor and affect. LABORATORY DATA: Hemoglobin 12.8, hematocrit 39.5, and platelet count is 121. Sodium 140, potassium 3.9, BUN 28, creatinine 1.07, glucose 106. Troponin 0.015, 0.025, and 0.018 respectively. ASSESSMENT: 1. Chest pain consistent with angina, stress test negative for ischemia, acute coronary syndrome ruled out. 2. Coronary artery disease, status post five-vessel coronary artery bypass grafting in 2011. 3. Paroxysmal atrial fibrillation and flutter, status post ablation x2. 4. Type 2 diabetes mellitus. 5. Hypertension. PLAN: Dr. Sinha has been consulted and has added aspirin 81 mg daily along with decreasing the patient's Eliquis to 2.5 mg daily. He has advised monitoring the patient overnight for further episodes of angina. I will continue the patient's home medications along with sliding scale insulin while he is here in the hospital. We will continue p.r.n. nitrates if needed. Anticipate discharge tomorrow morning if the patient does well overnight. The care of this patient has been discussed with Dr. Montenegro, who agrees with the above. Job ID: [id number]
[2018-08-08] MEDS ORDERED: Apixaban 2.5 MG TAB PO SCH (17:15)
[2018-08-08] MEDS ORDERED: Aspirin 81 mg Enteric Coated Tablet PO SCH (18:00)
[2018-08-08] MEDS: Ferrous Sulfate 325 MG TAB PO SCH (20:16)
[2018-08-08] MEDS: glyBURIDE 5 MG TAB PO SCH (20:16)
[2018-08-08] MEDS: Fish Oil 1,000 MG CAP PO SCH (20:16)
[2018-08-08] MEDS ORDERED: Apixaban 5 MG TAB PO SCH (21:00)
[2018-08-08] MEDS ORDERED: Carvedilol 3.125 MG TAB PO SCH (21:00)
[2018-08-09 05:22] LABS: #Eosinphils 0.2 thou/uL (0.0-0.7); #Lymphocytes 0.9 thou/uL (1.20-3.40); #Monocytes 0.5 thou/uL (0.11-0.59); #Neutrophils 2.5 thou/uL (1.40-6.50); %Basophils 0.5 % (0.0-1.0); %Lymphocytes 20.7 % (21.0-51.0); %Monocytes 12.9 % (0.0-10.0); %Neutrophils 60.9 % (42.0-75.0); Hemoglobin 11.5 g/dL (14.0-18.0); Mean Corpuscular HGB CONC 32.8 g/dL (32.0-36.0); Mean Corpuscular Volume 94.6 fL (78.0-98.0); Mean Platelet Volume 7.7 fL (7.4-10.4); Platelet Count 115 thou/uL (130-400); RBC Distribution Width 13.6 % (11.5-14.5); White Blood Cell (WBC) Count 4.1 thou/uL (4.8-10.8)
[2018-08-09 05:27] LABS: Anion Gap 11 mmol/L (10-20); BUN (Urea Nitrogen) 19 mg/dL (8.4-25.7); Calc. Creatinine Clearance 69 mL/min (70-130); Calcium 9.5 mg/dL (7.8-10.44); Carbon Dioxide 26 mmol/L (23-31); Chloride 107 mmol/L (98-107); Estimated GFR-MDRD 71; Glucose 122 mg/dL (83-110); Potassium 3.7 mmol/L (3.5-5.1); Sodium 140 mmol/L (136-145)
--- NOTE | 2018-08-09 08:09 | PRG ---
DATE OF SERVICE: 08/09/2018 SUBJECTIVE: Mr. Faith is doing well today. No further chest pain. Did have some bradycardia last night while sleeping. His heart rate from the hospital is in the low 60s, sometimes in the 50s. OBJECTIVE: VITAL SIGNS: Blood pressure 138/68, pulse 53. LUNGS: Clear. CARDIAC: Normal S1. Normal S2. ABDOMEN: Soft and nontender. ASSESSMENT: 1. Status post episode of angina with troponin levels in the normal range. 2. Normal stress test. 3. Previous bypass surgery. 4. History of atrial fibrillation with previous ablation. 5. History of gastrointestinal bleeding. PLAN: 1. He will go home on aspirin 81 mg a day. 2. Apixaban reduced to 2.5 mg twice a day. 3. Carvedilol 3.25 mg twice a day. 4. Torsemide 10 mg a day. 5. Potassium 20 mEq a day. 6. The patient has been statin intolerant. If he has any GI bleeding, we could consider discussing with Electrophysiology about the possibility of stopping apixaban versus consideration for Watchman. Long-term prognosis guarded. The patient will be advised to take nitroglycerin if he has recurrent chest pain. He did not take any nitroglycerin prior to this admission. Job ID: [id number]
[2018-08-09 08:11] VITALS: BP 155/70; TEMP 98.2
[2018-08-09] MEDS: Ferrous Sulfate 325 MG TAB PO SCH (08:23)
[2018-08-09] MEDS: Fish Oil 1,000 MG CAP PO SCH (08:23)
[2018-08-09] MEDS: Torsemide 20 MG TAB PO SCH ×2 (08:24→08:25)
[2018-08-09] MEDS: glyBURIDE 5 MG TAB PO SCH (08:24)
[2018-08-09] MEDS ORDERED: Apixaban 2.5 MG TAB PO SCH (09:00)
[2018-08-09] MEDS ORDERED: Aspirin 81 mg Enteric Coated Tablet PO SCH (09:00)
[2018-08-09] MEDS ORDERED: Potassium Chloride 20 MEQ TAB PO SCH (09:00)
[2018-08-09] MEDS ORDERED: Cyanocobalamin (Vitamin B-12) 1,000 MCG TAB PO SCH (09:00)
--- NOTE | 2018-08-09 13:48 | PRG ---
DATE OF SERVICE: 08/09/2018 ADDENDUM: The patient did have bradycardia last night despite very low doses of carvedilol. We will stop carvedilol at this time. Job ID: [id number]
== END 2018-08-09 10:31 | disposition home or self-care (01) ==
LOC: ERS 02:44 → 2SW 08:04
PROVIDERS: ADMIT Hospitalist; ATTEND Hospitalist
DX: I25.119 Atherosclerotic heart disease of native coronary artery with unspecified angina pectoris (principal); E11.9 Type 2 diabetes mellitus without complications; I16.0 Hypertensive urgency; I11.0 Hypertensive heart disease with heart failure; I50.30 Unspecified diastolic (congestive) heart failure; I48.0 Paroxysmal atrial fibrillation; I48.92 Unspecified atrial flutter; Z87.891 Personal history of nicotine dependence; Z79.84 Long term (current) use of oral hypoglycemic drugs; Z79.899 Other long term (current) drug therapy; Z88.8 Allergy status to other drugs, medicaments and biological substances; Z95.1 Presence of aortocoronary bypass graft; Z95.5 Presence of coronary angioplasty implant and graft
CPT/HCPCS: 71045; 78452; 80048; 80053; 82550; 82962 ×2; 84484 ×2; 85025 ×2; 93005; 93017; 99285; A9500; G0378 ×2; 36415; 36416; J2785

== ENCOUNTER 2018-10-02 06:03 | Observation (INO) | payer MEDICARE ==
[2018-10-02 06:27] LABS: #Eosinphils 0.1 thou/uL (0.0-0.7); #Lymphocytes 1.1 thou/uL (1.20-3.40); #Monocytes 0.6 thou/uL (0.11-0.59); #Neutrophils 3.5 thou/uL (1.40-6.50); %Basophils 0.1 % (0.0-1.0); %Eosinophils 2.3 % (0.0-10.0); %Lymphocytes 20.3 % (21.0-51.0); %Monocytes 10.8 % (0.0-10.0); %Neutrophils 66.5 % (42.0-75.0); Hemoglobin 12.4 g/dL (14.0-18.0); Mean Corpuscular HGB CONC 31.7 g/dL (32.0-36.0); Mean Corpuscular Volume 94.6 fL (78.0-98.0); Mean Platelet Volume 7.3 fL (7.4-10.4); Platelet Count 141 thou/uL (130-400); RBC Distribution Width 13.2 % (11.5-14.5); Red Blood Cell (RBC) Count 4.14 mill/uL (4.70-6.10); White Blood Cell (WBC) Count 5.2 thou/uL (4.8-10.8)
[2018-10-02 06:51] LABS: ALT (SGPT) 12 U/L (8-55); AST (SGOT) 16 U/L (5-34); Alkaline Phosphatase 90 U/L (40-150); Anion Gap 14 mmol/L (10-20); BUN (Urea Nitrogen) 25 mg/dL (8.4-25.7); Bilirubin, Total 0.7 mg/dL (0.2-1.2); CK (CPK) 83 U/L (30-200); Calc. Creatinine Clearance 0 mL/min (70-130); Calcium 10.2 mg/dL (7.8-10.44); Carbon Dioxide 27 mmol/L (23-31); Chloride 104 mmol/L (98-107); Estimated GFR-MDRD 70; Globulin 2.9 g/dL (2.4-3.5); Glucose 178 mg/dL (83-110); Potassium 4.2 mmol/L (3.5-5.1); Protein, Total 6.9 g/dL (5.8-8.1); Sodium 141 mmol/L (136-145)
[2018-10-02] MEDS ORDERED: Nitroglycerin 2% Ointment 1 INCH/1 GM Packet TOP PRN (08:52)
[2018-10-02] MEDS ORDERED: Aspirin 325 MG TAB PO SCH (09:00)
[2018-10-02 09:54] LABS: Troponin I 0.012 ng/mL (< 0.028)
--- NOTE | 2018-10-02 09:58 | RAD ---
PORTABLE CHEST: HISTORY: Chest pain. COMPARISON: 08/08/2018 exam. FINDINGS: Heart size is enlarged. There are postop sternotomy changes. Chronic-appearing interstitial changes are seen. No focal infiltrative process. IMPRESSION: Cardiomegaly with chronic lung change. POS: RIGOH
[2018-10-02 12:54] LABS: Troponin I 0.026 ng/mL (< 0.028)
[2018-10-02] MEDS ORDERED: hydrALAZINE 20 MG/ML VIAL SLOW IVP PRN (13:47)
--- NOTE | 2018-10-02 14:12 | HP ---
CHIEF COMPLAINT: Arm pain. HISTORY OF PRESENT ILLNESS: This patient is an 82-year-old male, who presented via the emergency department. The patient states that he awakened at some point during the night with severe reflux symptoms. He states he has not eaten anything other than a peanut butter and jelly sandwich, but had terrible "heartburn" type of reflux symptoms. The patient reported that he had been having these symptoms since he had endoscopy looking for the source of a GI bleed while on Xarelto. The patient reports he got up and took something for that and went back to sleep. The patient then awakened at 1:00 with severe pain in his left arm. The pain continued to intensify. He had no associated shortness of breath, nausea, diaphoresis, or lightheadedness, and he absolutely denies having any chest pain per se. The patient eventually got up, attempted to take his blood pressure several times, but his blood pressure machine erred ultimately when it did read as systolic of greater than 200. He then called his son and went to a fire station, where EMS evaluated him. They checked his blood pressure and again it was 200 systolic and 100s diastolic. The patient was given aspirin and nitroglycerin pills, and when his blood pressure did not come down to their satisfaction, they put on a nitroglycerin patch and referred him to the emergency department. He is pain free at the moment. The patient reports that he can generally tell when he is having runs of atrial fibrillation. He did not have that sensation at all during this episode. REVIEW OF SYSTEMS: The patient has again had some chronic reflux symptoms since he was recently had the endoscopy. He also reports some constipation, which was not historically common, but recently has become the norm. He voids regularly. Generally sleeps very well. All other systems were reviewed, all pertinent positives and negatives noted in the history of present illness. PAST MEDICAL HISTORY: Notable for atrial fibrillation. The patient has been placed on Xarelto in the past, but had anemia felt to be due to a GI bleed. He had upper and lower endoscopy with no bleeding source identified. He was subsequently changed to Eliquis, which he says it caused significant generalized myalgias to the point that he could not continue it. No symptoms resolved as soon as he stopped the Eliquis. He has been off all anticoagulations for about 12 days. He has a history of hypertension, diabetes mellitus type 2, and coronary artery disease. PAST SURGICAL HISTORY: Coronary artery bypass graft x5 about 7 years ago, left knee surgery, bilateral hip surgeries, cataractectomy, appendectomy, and herniorrhaphy x3. FAMILY HISTORY: Mother had coronary artery disease and of [place]. Father had osteoarthritis. SOCIAL HISTORY: The patient is still , lives at home, walks with a cane. He has a remote history of smoking briefly over 60 years ago and says he typically was drinking about 2 drinks per day, initially was beer, but was told he should change to bourbon by his doctors that would be better for his diabetes. About 6 months ago, he saw on one of his physicians' notes that there was concern about his alcohol consumption, so he essentially quit at that time. He denies drug use. He is still . Apparently, his has some dementia. He is full code. He said his surrogate decision maker would be his or any of his 3 sons, who are all local indicating that Adarsh and Brandon would likely be the ones most easily reached. ALLERGIES: DIAZEPAM. CURRENT MEDICATIONS: 1. Torsemide 30 mg daily. 2. Potassium 10 mEq daily. 3. Fish oil 1000 mg b.i.d. 4. Feosol 325 mg b.i.d. 5. B12 2500 mg p.o. daily. 6. Vitamin D3 1000 units daily. 7. Aspirin 81 mg daily. 8. Metformin 500 mg b.i.d. 9. Glyburide 5 mg b.i.d. PHYSICAL EXAMINATION: VITAL SIGNS: Temperature 97.6, pulse 64, respirations 15, O2 saturation 98%, and BP 166/84. GENERAL APPEARANCE: Age-appropriate male, who is extremely pleasant. He is in no distress. Awake and alert. HEENT: BRIAN. No OP lesions. NECK: Supple and symmetric. HEART: Regular rate and rhythm. No murmurs, gallops, or rubs. LUNGS: Clear to auscultation bilaterally with good chest wall expansion and air exchange. ABDOMEN: Soft, nontender, and nondistended. Positive bowel sounds. No masses. No organomegaly. EXTREMITIES: No cyanosis or clubbing. He has very trace edema bilaterally. He has old vein harvesting incisional scar on the left lower extremity. NEUROLOGIC: The patient has normal function and has normal spontaneous movement in all extremities and normal cognition. PSYCHIATRIC: Normal affect and behavior. LABORATORY DATA: White count 5.2, hemoglobin 12.4, and platelets 141. Sodium 141, potassium 4.2, chloride 104, CO2 of 27, BUN 25, creatinine 1.02, glucose 178, calcium 10.2, AST 16, and ALT 12. BNP 799. Troponin less than 0.01 and subsequently 0.012. IMAGING STUDIES: Chest x-ray shows cardiomegaly without pulmonary edema, some chronic lung changes noted. IMPRESSION AND PLAN: 1. Left arm pain. Unclear if this is an anginal equivalent. The patient did not have myocardial infarction prior to his bypass surgery and states he never actually had chest pain related to that. This patient has had similar chest pain and was admitted here in July. At that time, he had a normal stress test with an ejection fraction of 48%. He is typically followed by Dr. Sinha. He is placed on observation. Continue telemetry. Continue serial enzymes. We will also need to maintain better blood pressure control than that which with he presented. He appears to be in no distress and doing quite well presently. 2. Hypertension. The patient had significantly elevated blood pressure on presentation. He is improved now. We will certainly resume his usual home medications and give p.r.n. as needed for better blood pressure control. 3. History of atrial fibrillation. The patient had bleeding on Xarelto. No source was identified. He had severe diffuse myalgias, on Eliquis. He is currently off all anticoagulations. He said that the possibility of the Watchman device had been discussed with him back in July when he was admitted at that time. 4. Elevated BNP. The patient has no evidence of decompensated failure based on his chest x-ray or his physical exam. Historically, he has had a chronically elevated BNP going back to 2011. 5. Mild anemia, likely residual from his recent bout of anemia from being on Xarelto. 6. Diabetes mellitus. Continue his usual home medications. DISPOSITION: Discussed the case with Dr. Maldonado, given that he had the reflux and his symptoms are somewhat atypical and the fact that he had a negative stress test done in July, mitigates against this being significant unstable angina; however, the patient has known significant coronary artery disease, status post bypass grafting 7 years ago. He did have significant elevation of his blood pressure simultaneously, all which would suggest the possibility of angina. Therefore, we will defer to Dr. Maldonado's expertise. Job ID: [id number] [facility]
[2018-10-02] MEDS: glyBURIDE 5 MG TAB PO SCH (16:58)
[2018-10-02] MEDS: Ferrous Sulfate 325 MG TAB PO SCH (20:32)
[2018-10-02] MEDS: Fish Oil 1,000 MG CAP PO SCH (20:33)
[2018-10-02] MEDS ORDERED: metFORMIN 500 MG TAB PO SCH (21:00)
--- NOTE | 2018-10-02 21:54 | CON ---
DATE OF CONSULTATION: HISTORY OF PRESENT ILLNESS: Vic Faith is a pleasant 82-year-old white male with history of coronary artery disease. In 2011, he underwent CABG x5 by Dr. Mahajan with KELLOGG to LAD and distal LAD, vein graft to the ramus, first obtuse marginal and distal right coronary artery. He has had atrial fibrillation and he has undergone 2 ablations. He also had significant GI bleeding earlier this year and no specific source was found on upper and lower endoscopy. He was recently hospitalized in July 2018 with intense pain on the left side of his chest radiating to his left arm. He was given nitroglycerin sublingually, which relieved the pain. Cardiac enzymes were unremarkable and he underwent Cardiolite scanning which revealed ejection fraction of 48% and no evidence of ischemia. He did have some bradycardia and carvedilol was tapered and ultimately discontinued. Eliquis was reduced to 2.5 mg BID (however, now he is on Xarelto) and he was placed on 81 mg of aspirin in addition. He was seen for followup in the office on 01/2019. At that time, he was doing well without any recurrence of chest or arm discomfort. Early this morning, he was awakened with severe left arm pain. He denies any shortness of breath, nausea, vomiting, or diaphoresis. He really did not have any significant chest pain with this, just the left arm pain. Systolic was greater than 200 at home. He went to EMS, blood pressure again over 200. He was given aspirin and nitroglycerin, and he was brought to the emergency room. He stated that after the sublingual nitroglycerin, his left arm pain resolved after 30 minutes. PAST MEDICAL HISTORY: Coronary artery disease, hypertension, history of gastrointestinal bleed, paroxysmal atrial fibrillation status post 2 ablations, diabetes, hyperlipidemia. PAST SURGICAL HISTORY: CABG, bilateral hip surgery, cataract surgery, appendectomy, and herniorrhaphy. MEDICATIONS: 1. Aspirin 81 daily. 2. Xarelto 15 daily. 3. Demadex 30 daily. 4. Ferrous sulfate 325 b.i.d. 5. Fish oil 1000 b.i.d. 6. Glyburide 5 mg b.i.d. 7. Metformin 500 b.i.d. ALLERGIES: DIAZEPAM AND STATIN INTOLERANCE. REVIEW OF SYSTEMS: Unremarkable. PHYSICAL EXAMINATION: VITAL SIGNS: Blood pressure 157/73, pulse of 61. HEENT: PERRL. NECK: Supple. CHEST: Clear. CARDIAC: S1 and S2 normal without any S3 or S4. There is a 1-2/6 systolic ejection murmur. ABDOMEN: Normal bowel sounds without tenderness or organomegaly. EXTREMITIES: Revealed no clubbing, cyanosis, or edema. NEUROLOGICAL: Grossly intact. LABORATORY DATA: EKG reveals sinus rhythm with incomplete left bundle-branch block. Cardiac enzymes are unremarkable. Hemoglobin 12.4, hematocrit 39.1, white count 5200, platelets 141,000. BNP 799.0. Sodium 141, potassium 4.2, chloride 104, carbon dioxide 27, BUN 25, creatinine 1.02. IMPRESSION: 1. Left arm discomfort which probably is his anginal equivalent. This seemed to be relieved with sublingual nitroglycerin. He did have a normal Cardiolite scan 2 months ago. 2. Hypertension. 3. History of atrial fibrillation, status post 2 ablations without significant recurrence since then. 4. History of GI bleed. 5. Elevated BNP. 6. Diabetes mellitus. 7. Hyperlipidemia, statin intolerance. PLAN: Mr. Faith's blood pressure continues to be mildly elevated and we will continue to treat this. During his last admission, he became significantly bradycardic on beta blockers and they were discontinued. Also with his prolonged left arm discomfort, consideration may be given to repeat catheterization and I will leave this to this discretion of Dr. Sinha. Will discontinue Xarelto for now. Job ID: [id number] MTDD
[2018-10-03] MEDS: Cyanocobalamin (Vitamin B-12) 1,000 MCG TAB PO SCH (08:39)
[2018-10-03] MEDS: Aspirin 81 mg Enteric Coated Tablet PO SCH (08:39)
[2018-10-03] MEDS: metFORMIN 500 MG TAB PO SCH ×2 (08:39→16:20)
[2018-10-03] MEDS: Fish Oil 1,000 MG CAP PO SCH ×2 (08:39→20:37)
[2018-10-03] MEDS: glyBURIDE 5 MG TAB PO SCH ×2 (08:40→16:20)
[2018-10-03] MEDS: Potassium Chloride 10 MEQ TAB PO SCH (08:40)
[2018-10-03] MEDS: Ferrous Sulfate 325 MG TAB PO SCH ×2 (08:40→20:37)
[2018-10-03] MEDS ORDERED: Torsemide 20 MG TAB PO SCH (09:00)
--- NOTE | 2018-10-03 14:18 | PDOC.PN ---
- Subjective Encounter Start Date: 10/03/18 Encounter Start Time: 14:16 Mr. Faith was seen today in follow-up of left arm pain. He does not have any today. He denies any chest pain or shortness of breath. - Objective MAR Reviewed: Yes Vital Signs & Weight: Vital Signs (12 hours) Temp Pulse Resp BP Pulse Ox 10/03/18 12:00 97.3 F L 64 16 163/77 H 100 10/03/18 08:09 97.6 F 61 17 157/70 H 98 10/03/18 04:10 97.9 F 67 18 152/81 H 97 Weight Weight 194 lb 6.4 oz I&O: 10/02/18 10/03/18 10/04/18 06:59 06:59 06:59 Intake Total 500 Output Total 825 Balance -325 Result Diagrams: 10/02/18 06:20 10/02/18 06:20 Additional Labs: Accuchecks 10/02/18 16:37 POC Glucose 172 H Phys Exam - Physical Examination HEENT: PERRLA Respiratory: no wheezing, no rales, no rhonchi, clear to auscultation bilateral Cardiovascular: RRR, no significant murmur, no rub Gastrointestinal: soft, non-tender, no distention, positive bowel sounds Musculoskeletal: no edema, pulses present Neurological: non-focal Dx/Plan (1) Left arm pain Code(s): M79.602 - PAIN IN LEFT ARM Status: Acute (2) Atrial fibrillation Code(s): I48.91 - UNSPECIFIED ATRIAL FIBRILLATION Status: Chronic (3) Coronary artery disease Code(s): I25.10 - ATHSCL HEART DISEASE OF [place] CORONARY ARTERY W/O ANG PCTRS Status: Chronic (4) Diabetes mellitus type 2 in obese Code(s): E11.69 - TYPE 2 DIABETES MELLITUS WITH OTHER SPECIFIED COMPLICATION; E66.9 - OBESITY, UNSPECIFIED Status: Chronic (5) Hypertension Code(s): I10 - ESSENTIAL (PRIMARY) HYPERTENSION Status: Chronic - Plan * Left Arm pain- this is concerning for an anginal equivalent * AFIB- his heart rate is stable * HTN- blood pressure is a bit elevated- will observe * CAD- stable * Await opinion from Cardiology .
[2018-10-03] MEDS ORDERED: metFORMIN 500 MG TAB PO SCH (16:27)
[2018-10-03 16:30] LABS: Troponin I Less than 0.010 ng/mL (< 0.028)
[2018-10-03 19:02] LABS: Troponin I 0.012 ng/mL (< 0.028)
[2018-10-03] MEDS ORDERED: Nitroglycerin 2% Ointment 1 INCH/1 GM Packet TOP PRN (22:29)
[2018-10-03] MEDS: Nitroglycerin 0.4 MG TAB (25 Tab Bottle) SL PRN (22:34)
[2018-10-04] MEDS ORDERED: Acetaminophen 325 MG TAB PO PRN (04:59)
[2018-10-04] MEDS: Sodium Chloride 0.9% 1,000 ML IV SCH ×2 (06:07→17:20)
[2018-10-04] MEDS ORDERED: Iopamidol 370 76% 100 ML VIAL ONE (08:59)
[2018-10-04] MEDS ORDERED: Clopidogrel Bisulfate 300 MG TAB PO SCH (09:00)
--- NOTE | 2018-10-04 09:07 | EKG ---
Test Reason : STAT Blood Pressure : / mmHG Vent. Rate : 072 BPM Atrial Rate : 072 BPM P-R Int : 310 ms QRS Dur : 130 ms QT Int : 432 ms P-R-T Axes : 068 -29 108 degrees QTc Int : 473 ms Sinus rhythm with 1st degree A-V block Left bundle branch block Abnormal ECG When compared with ECG of 03-OCT-2018 16:06, (Unconfirmed) No significant change was found Confirmed by DR. Hayes MARTINEZ ([id number]) on 10/04/2018 9:06:55 AM Referred By: Confirmed By:DR. Hayes MARTINEZ
[2018-10-04] MEDS: Aspirin 81 mg Enteric Coated Tablet PO SCH (09:15)
[2018-10-04] MEDS ORDERED: Communication Order-Pharmacy FS SCH (09:15)
[2018-10-04] MEDS ORDERED: Lidocaine 1% (PF) 30 ML VIAL ONE (09:20)
--- NOTE | 2018-10-04 09:23 | PRG ---
DATE OF SERVICE: 10/04/2018 Mr. Faith is doing well this morning. He has not had any recurrent chest pain. I reviewed the situation with him. He has had recurrent left arm pain, which is anginal equivalent prompting 2 hospitalizations in the last couple of months. The patient has had bypass surgery in the past. We discussed the options of proceeding to cardiac catheterization. Discussed risk of stroke, heart attack, iodine allergy, loss of blood supply to the leg or kidney, emergency bypass surgery, stent thrombosis, were all discussed, and interference of blood supply to leg or kidney. The patient understands and wishes to proceed. The patient has been off the Xarelto for several days now. He has not had no recurrent atrial fibrillation recently. He has had GI bleeding in the past. We will likely not give him the anticoagulants, if the stents placed in at least for a couple of weeks, but I would like to give him dual anti-platelet drugs for at least a couple of weeks. Further recommendations after the cardiac catheterization. Job ID: [id number]
[2018-10-04] MEDS ORDERED: Fentanyl 100 MCG/2 ML VIAL ONE (09:59)
[2018-10-04] MEDS ORDERED: Heparin 10,000 UNITS/1 ML VIAL ONE (11:11)
[2018-10-04] MEDS ORDERED: Nitroglycerin 4.9 GM Bottle ONE (11:17)
[2018-10-04] MEDS ORDERED: Nitroglycerin 0.4 MG TAB (25 Tab Bottle) SL PRN (11:25)
[2018-10-04] MEDS ORDERED: Sodium Chloride 0.9% 200 ML IV PRN (11:25)
--- NOTE | 2018-10-04 11:51 | EKG ---
Test Reason : Blood Pressure : / mmHG Vent. Rate : 071 BPM Atrial Rate : 071 BPM P-R Int : 370 ms QRS Dur : 124 ms QT Int : 436 ms P-R-T Axes : 117 -33 105 degrees QTc Int : 473 ms Poor data quality, interpretation may be adversely affected Sinus rhythm with 1st degree A-V block Left axis deviation Left bundle branch block Abnormal ECG When compared with ECG of 02-OCT-2018 06:10, (Unconfirmed) Premature ventricular complexes are no longer Present ND interval has increased Confirmed by DR. Arsenio YEAGER ([id number]) on 10/04/2018 11:51:19 AM Referred By: MICHELL Confirmed By:DR. Arsenio YEAGER
[2018-10-04 16:25] VITALS: BMI 24.3
[2018-10-04] MEDS: glyBURIDE 5 MG TAB PO SCH ×2 (17:07→17:22)
[2018-10-04] MEDS: Cyanocobalamin (Vitamin B-12) 1,000 MCG TAB PO SCH (17:08)
[2018-10-04] MEDS: Potassium Chloride 10 MEQ TAB PO SCH (17:08)
[2018-10-04] MEDS: Ferrous Sulfate 325 MG TAB PO SCH ×2 (17:08→20:05)
[2018-10-04] MEDS: Fish Oil 1,000 MG CAP PO SCH ×2 (17:08→20:05)
--- NOTE | 2018-10-04 17:10 | PDOC.PN ---
- Subjective Encounter Start Date: 10/04/18 Encounter Start Time: 17:07 Mr. Faith was seen in follow-up of Chest pain. He does not have any problems today. He has not had any additional left arm. - Objective MAR Reviewed: Yes Vital Signs & Weight: Vital Signs (12 hours) Temp Pulse Resp BP Pulse Ox 10/04/18 15:48 97.6 F 74 18 178/80 H 98 10/04/18 11:36 97.8 F 70 16 151/81 H 96 10/04/18 07:32 98.3 F 60 18 144/71 H 99 Weight Admit Weight 194 lb 7 oz Weight 194 lb 4.8 oz I&O: 10/03/18 10/04/18 10/05/18 06:59 06:59 06:59 Intake Total 500 1520 Output Total 825 1050 375 Balance -325 470 -375 Result Diagrams: 10/02/18 06:20 10/02/18 06:20 Phys Exam - Physical Examination HEENT: PERRLA Respiratory: no wheezing, no rales, no rhonchi, clear to auscultation bilateral Cardiovascular: RRR, no significant murmur, no rub Gastrointestinal: soft, non-tender, no distention, positive bowel sounds Musculoskeletal: no edema, pulses present Dx/Plan (1) Left arm pain Code(s): M79.602 - PAIN IN LEFT ARM Status: Acute (2) Atrial fibrillation Code(s): I48.91 - UNSPECIFIED ATRIAL FIBRILLATION Status: Chronic (3) Coronary artery disease Code(s): I25.10 - ATHSCL HEART DISEASE OF [place] CORONARY ARTERY W/O ANG PCTRS Status: Chronic (4) Diabetes mellitus type 2 in obese Code(s): E11.69 - TYPE 2 DIABETES MELLITUS WITH OTHER SPECIFIED COMPLICATION; E66.9 - OBESITY, UNSPECIFIED Status: Chronic (5) Hypertension Code(s): I10 - ESSENTIAL (PRIMARY) HYPERTENSION Status: Chronic - Plan * Left Arm pain- likely his anginal equivalent- Cardiac cath results noted * HTN- blood pressure is a bit labile- need to monitor. This can be managed further as an outpatient * Disposition as per Cardiology.
[2018-10-04] MEDS: Nitroglycerin 0.4 MG TAB (25 Tab Bottle) SL PRN (22:23)
[2018-10-05] MEDS: Fish Oil 1,000 MG CAP PO SCH (08:32)
[2018-10-05] MEDS: Aspirin 81 mg Enteric Coated Tablet PO SCH (08:32)
[2018-10-05] MEDS: Cyanocobalamin (Vitamin B-12) 1,000 MCG TAB PO SCH (08:32)
[2018-10-05] MEDS: Potassium Chloride 10 MEQ TAB PO SCH (08:32)
[2018-10-05] MEDS: Ferrous Sulfate 325 MG TAB PO SCH (08:32)
[2018-10-05] MEDS: glyBURIDE 5 MG TAB PO SCH (08:32)
[2018-10-05 12:14] VITALS: BP 158/71; TEMP 98.4
--- NOTE | 2018-10-05 13:10 | PRG ---
DATE OF SERVICE: 10/05/2018 SUBJECTIVE: Mr. Faith is doing well, did have some chest pressure and left arm discomfort last night, responded to nitroglycerin. OBJECTIVE: VITAL SIGNS: Blood pressure 174/86 and pulse 65 and regular. LUNGS: Clear. CARDIAC: Normal S1 and normal S2. ASSESSMENT: 1. Coronary artery disease with diffuse distal atherosclerosis. All grafts were patent. 2. Ejection fraction is 40%. 3. Hypertension. 4. Statin intolerance. 5. Paroxysmal atrial fibrillation with low burden. PLAN: 1. He will resume Xarelto 15 mg a day starting two days. 2. Nitroglycerin has been added if needed. 3. Lisinopril 2.5 mg a day. 4. Ranexa 500 mg twice a day will be added. 5. We will ask him to come back and see us in a couple of months. The treatment will be medical. Job ID: [id number]
--- NOTE | 2018-10-05 14:35 | PDOC.HOSPP ---
- Subjective Subjective: Mr. Faith was seen today in follow-up of Left arm pain. He is feeling fine and does not have any other complaints. - Objective Vital Signs & Weight: Vital Signs (12 hours) Temp Pulse Resp BP BP Pulse Ox 10/05/18 11:50 98.4 F 70 18 158/71 H 98 10/05/18 07:21 97.7 F 65 16 174/86 H 98 10/05/18 04:11 98.3 F 76 16 140/76 99 Weight Admit Weight 194 lb 7 oz Weight 191 lb 6.4 oz I&O: 10/04/18 10/05/18 10/06/18 06:59 06:59 06:59 Intake Total 1520 1640 Output Total 1050 975 Balance 470 665 Result Diagrams: 10/02/18 06:20 10/02/18 06:20 ROS - Review of Systems All systems: All other ROS were reviewed and found negative. - Medication Medications: Active Medications Generic Name Dose Route Start Last Admin Trade Name Freq PRN Reason Stop Dose Admin Aspirin 81 mg 10/03/18 09:00 10/05/18 08:32 Ecotrin PO 81 mg DAILY IVANA Administration Cholecalciferol 1,000 units 10/03/18 09:00 10/05/18 08:33 Vitamin D3 PO 1,000 units DAILY IVANA Administration Cyanocobalamin 2,500 mcg 10/03/18 09:00 10/05/18 08:32 Vitamin B-12 PO 2,500 mcg DAILY IVANA Administration Ferrous Sulfate 325 mg 10/02/18 21:00 10/05/18 08:32 Feosol PO 325 mg BID IVANA Administration Fish Oil 1,000 mg 10/02/18 21:00 10/05/18 08:32 Fish Oil PO 1,000 mg BID IVANA Administration Glyburide 5 mg 10/02/18 16:30 10/05/18 08:32 Diabeta PO 5 mg BID-AC IVANA Administration Miscellaneous Information 0 each 10/04/18 09:15 10/04/18 17:09 Communication Order-Pharmacy FS Not Given 914 IVANA Nitroglycerin 0.5 inch 10/03/18 22:29 10/03/18 22:51 Nitro-Bid 2% Ointment TOP 0.5 inch Q8H PRN Administration Chest Pain Ranolazine 500 mg 10/04/18 21:00 10/05/18 08:33 Ranexa PO 500 mg BID IVANA Administration Sodium Chloride 10 ml 10/02/18 09:00 10/05/18 08:34 Flush - Normal Saline IVF 10 ml Q12HR IVANA Administration Sodium Chloride 10 ml 10/02/18 08:52 10/04/18 06:07 Flush - Normal Saline IVF 10 ml PRN PRN Administration Saline Flush - Exam Eye: PERRL, anicteric sclera ENT: normocephalic atraumatic, no oropharyngeal lesions Respiratory: CTAB, no wheezes, no rales, no ronchi, no tachypnea, normal percussion Gastrointestinal: soft, non-tender, non-distended, normal bowel sounds Extremities: no cyanosis, no edema Hosp A/P (1) Left arm pain Code(s): M79.602 - PAIN IN LEFT ARM Status: Acute (2) Atrial fibrillation Code(s): I48.91 - UNSPECIFIED ATRIAL FIBRILLATION Status: Chronic (3) Coronary artery disease Code(s): I25.10 - ATHSCL HEART DISEASE OF [place] CORONARY ARTERY W/O ANG PCTRS Status: Chronic (4) Diabetes mellitus type 2 in obese Code(s): E11.69 - TYPE 2 DIABETES MELLITUS WITH OTHER SPECIFIED COMPLICATION; E66.9 - OBESITY, UNSPECIFIED Status: Chronic (5) Hypertension Code(s): I10 - ESSENTIAL (PRIMARY) HYPERTENSION Status: Chronic - Plan Left Arm pain- he is tolerating the Ranexa, stable for discharge per Dr. Sinha.
--- NOTE | 2018-10-05 21:47 | DIS ---
DATE OF ADMISSION: 10/02/2018 DATE OF DISCHARGE: 10/05/2018 PRIMARY CARE PHYSICIAN: Dr. Taina Blair. DISCHARGE DISPOSITION: Home. PRIMARY DISCHARGE DIAGNOSES: 1. Angina. 2. Coronary artery disease. 3. Hypertension, poorly controlled. 4. Coronary artery disease. 5. History of GI bleed. 6. Atrial fibrillation. DISCHARGE MEDICATIONS: 1. Ranexa 500 mg twice daily. 2. Lisinopril 2.5 mg daily. 3. Aspirin 81 mg daily. 4. Demadex 30 mg daily. 5. Xarelto 15 mg daily. 6. Potassium chloride 10 mEq daily. 7. Nitrostat 0.4 sublingual p.r.n. 8. Metformin 500 mg twice daily. 9. Glyburide 5 mg twice a day. 10. Fish oil 1000 mg twice daily. 11. Iron sulfate 325 mg twice daily. 12. Vitamin B12 2500 mcg p.o. daily. 13. Vitamin D3 1000 units daily. PROCEDURES DONE DURING THE ADMISSION: The patient had a cardiac catheterization in which it was noted the patient had 3-vessel coronary artery disease as well as diffuse arthrosclerosis. All grafts were patent. The ejection fraction was 40% with some inferior hypokinesis. CODE STATUS: Full code. ALLERGIES: DIAZEPAM. HOSPITAL COURSE: Mr. Faith is a pleasant 82-year-old gentleman, who presented to the emergency room complaining of left arm pain. He also is having a terrible heartburn type sensation as well. It was felt that this could be an anginal equivalent. He was placed in observation and ruled out. However, due to his symptomatology and his high risk, he was monitored in the hospital for several days and his business administration teacher performed a cardiac catheterization, noting that he had minimal change in his coronary artery disease pattern and that he has a history of a bypass surgery, but the grafts to the bypass were patent. Medications were titrated and that he had very labile blood pressure and also had episodes of feeling flushed and diaphoretic during his hospital stay. He was started on Ranexa as well as nitrates, which improved his symptomatology and he was subsequently able to be discharged home in good condition on 10/05/2018. Job ID: [id number]
[2018-10-06] MEDS ORDERED: Lisinopril 2.5 MG TAB PO SCH (09:00)
[2018-10-07] MEDS ORDERED: Rivaroxaban 10 MG TAB PO SCH (18:00)
== END 2018-10-05 14:47 | disposition home or self-care (01) ==
LOC: ERS 06:03 → 2SW 08:56
PROVIDERS: ADMIT Internal Medicine; ATTEND Internal Medicine
PROC: 4A023N7 Measurement of Cardiac Sampling and Pressure, Left Heart, Percutaneous Approach (ICD-10-PCS; principal; 2018-10-02)
PROC: B2111ZZ Fluoroscopy of Multiple Coronary Arteries using Low Osmolar Contrast (ICD-10-PCS; 2018-10-02)
PROC: B2131ZZ Fluoroscopy of Multiple Coronary Artery Bypass Grafts using Low Osmolar Contrast (ICD-10-PCS; 2018-10-02)
DX: I25.119 Atherosclerotic heart disease of native coronary artery with unspecified angina pectoris (principal); I10 Essential (primary) hypertension; I48.0 Paroxysmal atrial fibrillation; D64.9 Anemia, unspecified; E11.69 Type 2 diabetes mellitus with other specified complication; E66.9 Obesity, unspecified; E78.5 Hyperlipidemia, unspecified; R79.89 Other specified abnormal findings of blood chemistry; K21.9 Gastro-esophageal reflux disease without esophagitis; Z95.1 Presence of aortocoronary bypass graft; Z87.891 Personal history of nicotine dependence; Z87.19 Personal history of other diseases of the digestive system; Z68.23 Body mass index [BMI] 23.0-23.9, adult; Z88.8 Allergy status to other drugs, medicaments and biological substances; Z79.82 Long term (current) use of aspirin; Z79.84 Long term (current) use of oral hypoglycemic drugs; Z79.01 Long term (current) use of anticoagulants; Z79.899 Other long term (current) drug therapy
CPT/HCPCS: 71045; 76942; 80053; 82550; 82962 ×2; 83880; 84484 ×4; 85025; 85347; 93005 ×2; 93459; 96360; 96361; 99285; C1769; G0378 ×5; 36415; 36416; 93010; J1644; J2001; J3010; Q9967

== ENCOUNTER 2018-10-12 12:29 | Emergency (ER) | payer MEDICARE ==
--- NOTE | 2018-10-12 13:17 | RAD ---
XR Shoulder Lt 3 View STANDARD History: Shoulder pain Comparison: None. Findings: No acute fracture or malalignment. 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 Ribs are intact. There appear to be erosions of the footprint of the greater tuberosity at the rotator cuff insertion. Mild osteophyte formation of the glenoid and humeral head. Impression: Advanced degenerative changes.
[2018-10-12 13:43] LABS: #Eosinphils 0.1 thou/uL (0.0-0.7); #Lymphocytes 0.8 thou/uL (1.20-3.40); #Monocytes 0.5 thou/uL (0.11-0.59); #Neutrophils 4.6 thou/uL (1.40-6.50); %Basophils 0.2 % (0.0-1.0); %Eosinophils 1.1 % (0.0-10.0); %Lymphocytes 12.8 % (21.0-51.0); %Monocytes 9.1 % (0.0-10.0); %Neutrophils 76.8 % (42.0-75.0); Hemoglobin 11.8 g/dL (14.0-18.0); Mean Corpuscular HGB CONC 33.8 g/dL (32.0-36.0); Mean Corpuscular Hemoglobin 31.6 pg (27.0-31.0); Mean Corpuscular Volume 93.4 fL (78.0-98.0); Mean Platelet Volume 7.4 fL (7.4-10.4); Platelet Count 141 thou/uL (130-400); RBC Distribution Width 13.1 % (11.5-14.5); Red Blood Cell (RBC) Count 3.75 mill/uL (4.70-6.10)
[2018-10-12] MEDS ORDERED: Ondansetron PF 4 MG/2 ML Vial ONE (14:07)
[2018-10-12] MEDS ORDERED: Morphine 4 MG/ML VIAL ONE (14:07)
--- NOTE | 2018-10-12 14:10 | RAD ---
PORTABLE CHEST ONE VIEW: 10/12/18 at 1:23 p.m. HISTORY: Chest pain. FINDINGS: Comparison made with exam of 10/02/18. Changes of median sternotomy are again seen. The heart size is normal. The lungs are expanded without lobar consolidation, pneumothoraces, or pleural effusions. There are degenerative changes in the spi ne and acromioclavicular joints. IMPRESSION: No radiographic evidence of acute cardiopulmonary process. POS: OFF
[2018-10-12 14:11] LABS: ALT (SGPT) 11 U/L (8-55); AST (SGOT) 15 U/L (5-34); Alkaline Phosphatase 86 U/L (40-150); Anion Gap 15 mmol/L (10-20); BUN (Urea Nitrogen) 28 mg/dL (8.4-25.7); Bilirubin, Total 0.9 mg/dL (0.2-1.2); Calc. Creatinine Clearance 0 mL/min (70-130); Calcium 10.1 mg/dL (7.8-10.44); Carbon Dioxide 26 mmol/L (23-31); Chloride 102 mmol/L (98-107); Estimated GFR-MDRD 65; Globulin 2.9 g/dL (2.4-3.5); Glucose 168 mg/dL (83-110); Potassium 3.9 mmol/L (3.5-5.1); Protein, Total 6.9 g/dL (5.8-8.1); Sodium 139 mmol/L (136-145)
[2018-10-12] MEDS ORDERED: HYDROcodone/Acetaminophen 10/325 mg Tablet ONE (18:36)
== END 2018-10-12 18:52 | disposition home or self-care (01) ==
LOC: ERS 12:29
DX: M25.512 Pain in left shoulder (principal); I48.91 Unspecified atrial fibrillation; I10 Essential (primary) hypertension; I25.10 Atherosclerotic heart disease of native coronary artery without angina pectoris; E11.9 Type 2 diabetes mellitus without complications; Z79.82 Long term (current) use of aspirin; Z87.891 Personal history of nicotine dependence
CPT/HCPCS: 36415; 71045; 80053; 83880; 84484; 85025; 93005; 96374; J2270; J2405

== ENCOUNTER 2019-05-20 14:23 | Inpatient (IN) | payer MEDICARE ==
[2019-05-20 15:06] LABS: #Eosinphils 0.1 thou/uL (0.0-0.7); #Lymphocytes 0.8 thou/uL (1.20-3.40); #Monocytes 0.5 thou/uL (0.11-0.59); #Neutrophils 3.6 thou/uL (1.40-6.50); %Basophils 0.6 % (0.0-1.0); %Lymphocytes 16.2 % (21.0-51.0); %Monocytes 10.7 % (0.0-10.0); %Neutrophils 70.4 % (42.0-75.0); Hemoglobin 12.9 g/dL (14.0-18.0); Mean Corpuscular HGB CONC 32.6 g/dL (32.0-36.0); Mean Platelet Volume 8.2 fL (7.4-10.4); Platelet Count 148 thou/uL (130-400); RBC Distribution Width 14.6 % (11.5-14.5); Red Blood Cell (RBC) Count 4.15 mill/uL (4.70-6.10); White Blood Cell (WBC) Count 5.1 thou/uL (4.8-10.8)
[2019-05-20 15:29] LABS: ALT (SGPT) 34 U/L (8-55); AST (SGOT) 38 U/L (5-34); Alkaline Phosphatase 122 U/L (40-110); Anion Gap 13 mmol/L (10-20); BUN (Urea Nitrogen) 36 mg/dL (8.4-25.7); Bilirubin, Total 0.9 mg/dL (0.2-1.2); CK (CPK) 78 U/L (30-200); Calc. Creatinine Clearance 0 mL/min (70-130); Calcium 10.1 mg/dL (7.8-10.44); Carbon Dioxide 28 mmol/L (23-31); Chloride 101 mmol/L (98-107); Digoxin Less than 0.15 ng/mL (0.8-2.0); Estimated GFR-MDRD 41; Globulin 2.8 g/dL (2.4-3.5); Glucose 274 mg/dL (83-110); Lipase 35 U/L (8-78); Potassium 5.1 mmol/L (3.5-5.1); Protein, Total 6.8 g/dL (5.8-8.1); Sodium 137 mmol/L (136-145)
[2019-05-20 15:51] LABS: CKMB 2.6 ng/mL (0-6.6)
--- NOTE | 2019-05-20 15:55 | RAD ---
CHEST 1 VIEW PORTABLE: HISTORY: Chest pain, weakness, bradycardia. COMPARISON: 10/12/2018. FINDINGS: Postop midline sternotomy. Minimal cardiomegaly. Arthrosis changes of both shoulder joints. No con fluent pneumonia, overt edema, or pleural effusion. IMPRESSION: Overall stable cardiomegaly and minimal increased markings bilaterally. No significant acute process . POS: [facility]
[2019-05-20 18:42] LABS: Troponin I 0.027 ng/mL (< 0.028)
[2019-05-20] MEDS ORDERED: Ondansetron PF 4 MG/2 ML Vial IVP PRN (19:05)
[2019-05-20] MEDS ORDERED: Ondansetron ODT 4 MG TAB SL PRN (19:05)
[2019-05-20] MEDS ORDERED: Acetaminophen 325 MG TAB PO PRN (19:05)
[2019-05-20 20:21] LABS: #Eosinphils 0.1 thou/uL (0.0-0.7); #Monocytes 0.6 thou/uL (0.11-0.59); #Neutrophils 2.9 thou/uL (1.40-6.50); %Basophils 0.4 % (0.0-1.0); %Eosinophils 2.9 % (0.0-10.0); %Lymphocytes 20.8 % (21.0-51.0); %Monocytes 12.2 % (0.0-10.0); %Neutrophils 63.7 % (42.0-75.0); Hemoglobin 11.7 g/dL (14.0-18.0); Mean Corpuscular HGB CONC 32.5 g/dL (32.0-36.0); Mean Corpuscular Hemoglobin 30.8 pg (27.0-31.0); Mean Corpuscular Volume 94.9 fL (78.0-98.0); Platelet Count 151 thou/uL (130-400); RBC Distribution Width 14.4 % (11.5-14.5); White Blood Cell (WBC) Count 4.6 thou/uL (4.8-10.8)
[2019-05-20 20:57] LABS: Troponin I 0.042 ng/mL (< 0.028)
--- NOTE | 2019-05-20 23:04 | PDOC.HHP ---
Hospitalist HPI - History of Present Illness Fatigue History of Present Illness: 83 yo male with A.Fib on eliquis, CAD, CHF on torsemide presents to ER due to weakness and dizziness. He states that for about 5 days, he has been feeling extremely weak. He has had trouble sleeping as he has been waking up at 1 AM and has been unable to go back to sleep. He reports lightheadedness and chest discomfort. He has SOB with minimal exertion. No palpitations, CP, fever, chills , cough, wheezing, headache, N/V/D/C. No abdominal pain. No sick contacts or recent travel history. Reports chronic swelling in his legs. Yesterday, he checked his BP and found his HR to be in the 30s. So, he presented to the ER. Hospitalist ROS - Review of Systems All other systems reviewed; all pertinent +/- noted in HPI/Subj Hospitalist History - Past Medical History Source: patient, old records Cardiac: reports: AFIB, CAD, CHF, HTN Endocrine: reports: Diabetes - Past Surgical History Past Surgical History: reports: Appendectomy, CABG, Cataract Removal - Family History Family History: reports: cardiac disorder (mother) - Social History Smoking Status: Former smoker Alcohol: reports: None Drugs: reports: none Living Situation: With Family Activity level: uses cane/walker - Exam General Appearance: NAD, awake alert Eye: PERRL, anicteric sclera ENT: normocephalic atraumatic, no oropharyngeal lesions, dry oral mucosa Neck: supple, symmetric, no JVD, no thyromegaly, no lymphadenopathy Heart: no murmur, no gallops, no rubs, normal peripheral pulses Heart - other findings: Irregular rate and rhythm Respiratory: CTAB, no wheezes, no rales, no ronchi, normal chest expansion, no tachypnea, normal percussion Gastrointestinal: soft, non-tender, non-distended, normal bowel sounds, no palpable masses, no hepatomegaly Extremities: no cyanosis, no clubbing, no edema Skin: normal turgor, no lesions, no rashes Neurological: cranial nerve grossly intact, normal sensation to touch, no weakness, no focal deficits Musculoskeletal: normal tone, normal strength, no muscle wasting Psychiatric: normal affect, normal behavior, A&O x 3 Hospitalist Results - Labs Result Diagrams: 05/20/19 20:12 05/20/19 14:53 Lab results: WBC 4.6 thou/uL (4.8-10.8) L 05/20/19 20:12 Hgb 11.7 g/dL (14.0-18.0) L 05/20/19 20:12 Hct 36.1 % (42.0-52.0) L 05/20/19 20:12 MCV 94.9 fL (78.0-98.0) 05/20/19 20:12 Plt Count 151 thou/uL (130-400) 05/20/19 20:12 Neutrophils % 63.7 % (42.0-75.0) 05/20/19 20:12 Sodium 137 mmol/L (136-145) 05/20/19 14:53 Potassium 5.1 mmol/L (3.5-5.1) 05/20/19 14:53 Chloride 101 mmol/L (98-107) 05/20/19 14:53 Carbon Dioxide 28 mmol/L (23-31) 05/20/19 14:53 BUN 36 mg/dL (8.4-25.7) H 05/20/19 14:53 Creatinine 1.61 mg/dL (0.7-1.3) H 05/20/19 14:53 Glucose 274 mg/dL (83-110) H 05/20/19 14:53 Calcium 10.1 mg/dL (7.8-10.44) 05/20/19 14:53 Total Bilirubin 0.9 mg/dL (0.2-1.2) 05/20/19 14:53 AST 38 U/L (5-34) H 05/20/19 14:53 ALT 34 U/L (8-55) 05/20/19 14:53 Alkaline Phosphatase 122 U/L (40-110) H 05/20/19 14:53 Creatine Kinase 78 U/L (30-200) 05/20/19 14:53 CK-MB (CK-2) 2.6 ng/mL (0-6.6) 05/20/19 14:53 Troponin I 0.042 ng/mL (< 0.028) H 05/20/19 20:12 B-Natriuretic Peptide 1261.4 pg/mL (0-100) H 05/20/19 14:53 Serum Total Protein 6.8 g/dL (5.8-8.1) 05/20/19 14:53 Albumin 4.0 g/dL (3.4-4.8) 05/20/19 14:53 Lipase 35 U/L (8-78) 05/20/19 14:53 - EKG Interpretation EKG: Personally reviewed - StephenFib with slow rate @ 40s; LBBB - Radiology Interpretation Chest x-ray Status: image reviewed by me (Midline sternotomy wires; No consolidation or CP angle blunting seen) Hospitalist H&P A/P - Problem (1) Bradycardia Code(s): R00.1 - BRADYCARDIA, UNSPECIFIED Status: Acute Assessment and Plan: EKG with Tomasa with slow ventricular rate Bradycardia likely related to his meds Hold AV blocking agents. Cardiology consult. Cardiac enzymes have been flat. Cycle them. On telemetry, his heart rate is in the 60s now Admit to inpatient status. Expected to stay at least 2 midnights. High risk due to risk of lethal arrhythmias and risk of worsening renal function. (2) ZAKI (acute kidney injury) Code(s): N17.9 - ACUTE KIDNEY FAILURE, UNSPECIFIED Status: Acute Assessment and Plan: Likely related to overdiuresis Looks dry Renal US IV fluids Avoid nephrotoxic meds and hypotension Monitor urine output and renal function closely (3) Atrial fibrillation Code(s): I48.91 - UNSPECIFIED ATRIAL FIBRILLATION Status: Chronic Qualifiers: Atrial fibrillation type: longstanding persistent Qualified Code(s): I48.11 - Longstanding persistent atrial fibrillation Assessment and Plan: With bradycardia now Hold AV dalila blocking agents. Resume Eliquis at home dose Cardiology consult (4) DM (diabetes mellitus) Code(s): E11.9 - TYPE 2 DIABETES MELLITUS WITHOUT COMPLICATIONS Status: Chronic Qualifiers: Diabetes mellitus type: type 2 Diabetes mellitus call center nurse insulin use: without nursing home use Diabetes mellitus complication status: with hyperglycemia Qualified Code(s): E11.65 - Type 2 diabetes mellitus with hyperglycemia Assessment and Plan: Diabetic diet and SSI Resume home meds Monitor sugars and adjust regimen (5) Coronary artery disease Code(s): I25.10 - ATHSCL HEART DISEASE OF [place] CORONARY ARTERY W/O ANG PCTRS Status: Chronic Qualifiers: Coronary Disease-Associated Artery/Lesion type: [place] artery [place] vs. transplanted heart: [place] heart Associated angina: without angina Qualified Code(s): I25.10 - Atherosclerotic heart disease of [place] coronary artery without angina pectoris Assessment and Plan: Mildly elevated troponins likely related to his renal function Cardio consult cycle trops Continue home meds except AV dalila blockers (6) Hypertension Code(s): I10 - ESSENTIAL (PRIMARY) HYPERTENSION Status: Chronic Qualifiers: Hypertension type: essential hypertension Qualified Code(s): I10 - Essential (primary) hypertension Assessment and Plan: Elevated BP Resume home meds Monitor BP and adjust - Plan Plan: CODE STATUS - DNR/DNI His sons are his health care proxies
[2019-05-20] MEDS ORDERED: Dextrose 5% in Water 1,000 ML IV PRN (23:06)
[2019-05-20] MEDS ORDERED: Dextrose 50% Abboject 50 ML SYRINGE SLOW IVP PRN (23:06)
[2019-05-20] MEDS ORDERED: Apixaban 2.5 MG TAB PO SCH (23:45)
[2019-05-20] MEDS ORDERED: Sodium Chloride 0.9% 1,000 ML IV SCH (23:45)
[2019-05-20] MEDS ORDERED: Nitroglycerin 0.4 MG TAB (25 Tab Bottle) SL PRN (23:49)
[2019-05-21 05:35] LABS: ALT (SGPT) 28 U/L (8-55); AST (SGOT) 27 U/L (5-34); Albumin 3.5 g/dL (3.4-4.8); Alkaline Phosphatase 101 U/L (40-110); Anion Gap 12 mmol/L (10-20); BUN (Urea Nitrogen) 33 mg/dL (8.4-25.7); Bilirubin, Total 0.8 mg/dL (0.2-1.2); Calc. Creatinine Clearance 50 mL/min (70-130); Calcium 9.7 mg/dL (7.8-10.44); Carbon Dioxide 28 mmol/L (23-31); Chloride 103 mmol/L (98-107); Estimated GFR-MDRD 48; Globulin 3.1 g/dL (2.4-3.5); Glucose 231 mg/dL (83-110); Potassium 4.1 mmol/L (3.5-5.1); Protein, Total 6.6 g/dL (5.8-8.1); Sodium 139 mmol/L (136-145)
[2019-05-21] MEDS ORDERED: metFORMIN 500 MG TAB PO SCH (08:00)
--- NOTE | 2019-05-21 08:30 | ULT ---
EXAM: US Renal Bilateral STANDARD PROVIDED CLINICAL HISTORY: Acute kidney injury COMPARISON: None FINDINGS: Right kidney measures about 13.2 x 7.1 x 6.5 cm and demonstrates no evidence for hydronephrosis or so lid mass. Simple appearing 3.9 cm superior pole cyst. Left kidney measures about 13.5 x 6.1 x 5.8 cm and demonstrates no evidence for hydronephrosis or nell id mass. Simple appearing subcentimeter inferior pole cyst. Urinary bladder is sonographically unremarkable. IMPRESSION: No evidence for hydronephrosis.
[2019-05-21] MEDS: Ferrous Sulfate 325 MG TAB PO SCH ×2 (08:56→17:23)
[2019-05-21] MEDS: Aspirin 81 mg Enteric Coated Tablet PO SCH (08:56)
[2019-05-21] MEDS ORDERED: Apixaban 2.5 MG TAB PO SCH (09:00)
[2019-05-21] MEDS: HumaLOG 300 UNITS/3 ML VIAL SC PRN ×2 (10:54→17:22)
--- NOTE | 2019-05-21 12:50 | CON ---
DATE OF CONSULTATION: 05/21/2019 REASON FOR CONSULTATION: Shortness of breath and bradycardia. PRIMARY POLITICAL SCIENTIST: Tripp Sinha MD HISTORY OF PRESENT ILLNESS: Mr. Faith is a pleasant 83-year-old white gentleman, who comes to the hospital for shortness of breath and bradycardia. He has been noticing for the last few weeks to months worsening shortness of breath. He has been changing his torsemide to try to get some of the fluid out, eventually became fluid down, his symptoms did not really change. He called the office on Thursday as his shortness of breath was worse. He checked his blood pressure and he noticed his heart rate was 34. He was advised to go to the ER which he did. He was found to have heart rates in the 30s in the ER as well. He had been on Coreg up until which was started in March, but this was stopped about 3 weeks ago and he has been off it since then. He is on no other AV dalila blocking agents. He takes Eliquis chronically for chronic atrial fibrillation. Currently, his heart rate in the 60s and it dips down to the 30s every now and then, he becomes symptomatic, being lightheaded and short of breath. He has no chronotropic incompetence either as he walked to the bathroom and his heart rate remained in the 50s and he felt extremely short winded. Last LV function evaluation was with his stress test, which was done in July 2018 and his EF was 48%. Denies any chest pain, tightness, pressure. No fevers, chills. PAST MEDICAL HISTORY: 1. Coronary artery disease, status post CABG x5. He had a heart catheterization last year and he had reduced EF with severe hopi disease, but patent bypasses. 2. Hypertension. 3. History of GI bleed. 4. Paroxysmal atrial fibrillation. 5. Status post ablation in the past. 6. Type 2 diabetes. 7. Hyperlipidemia. PAST SURGICAL HISTORY: 1. CABG x5 as above. 2. Bilateral hip surgery. 3. Cataract surgery. 4. Appendectomy. 5. Herniorrhaphy. OUTPATIENT MEDICATIONS: 1. Eliquis 2.5 mg b.i.d. 2. Metformin 500 mg b.i.d. 3. Glyburide. 4. Torsemide 30 mg a day. 5. Ranolazine 500 mg b.i.d. 6. Potassium chloride 10 mEq a day. 7. Sublingual nitroglycerin. 8. Lisinopril 2.5 mg a day. 9. Fish oil. 10. Ferrous sulfate 325 mg b.i.d. 11. Vitamin B12. 12. Vitamin D3. 13. Aspirin 81 a day. ALLERGIES: DIAZEPAM GIVES HIM HALLUCINATIONS, STATIN INTOLERANCE. SOCIAL HISTORY: No alcohol, tobacco, or drugs. FAMILY HISTORY: Noncontributory. REVIEW OF SYSTEMS: A 12-point review of systems was done and was all negative unless stated in the history of present illness. PHYSICAL EXAMINATION: VITAL SIGNS: Temperature 97.4, pulse 43, respiratory rate 14, sat 98% on room air, blood pressure 134/68. GENERAL: Awake, alert, oriented x3. No distress. HEENT: Normocephalic, atraumatic. NECK: Supple. LUNGS: Clear. CARDIOVASCULAR: S1 and S2. No S3 or S4. Irregularly irregular heart rate in the 50s. There is a grade 3/6 systolic murmur at the right upper sternal border. ABDOMEN: Soft. Positive bowel sounds. EXTREMITIES: No edema. SKIN: Warm and dry. LABORATORY DATA: Laboratory work was reviewed. CBC with a white count of 5, hemoglobin of 12, hematocrit 39, platelet count of 148. Chemistry is unremarkable except for BUN of 33, creatinine 1.4, GFR was 48. Troponin was 0.02 and then 0.04, still indeterminate range. BNP was 1261. Digoxin was less than assay limit. EKG was reviewed, atrial fibrillation with slow ventricular response, heart rate in the 40s. There is a wide QRS at 122. ASSESSMENT: 1. Symptomatic bradycardia. 2. Atrial fibrillation with slow ventricular response. 3. 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 4. Ischemic cardiomyopathy. 5. Coronary artery disease, status post coronary artery bypass grafting. No acute coronary syndrome. PLAN: 1. Most likely, Mr. Faith will benefit from a pacemaker. He states that he has discussed this with Dr. Sinha as an outpatient in the recent past and we were waiting to see if this was going to be a necessity. At this point, he is ready to proceed. He is willing to rescind his DNR/DNI to proceed with pacemaker placement. 2. We will get an echocardiogram. If his LV function is left than 35, we will recommend a defibrillator more on top of the pacemaker. His QRS is being 122 and having a reduced EF, he will benefit from biventricular pacing, so we will call Electrophysiology for consideration of biventricular pacemaker placement. Thank you for letting us to participate in the care of your patient. We will follow. Job ID: [id number]
--- NOTE | 2019-05-21 12:58 | PDOC.HOSPP ---
- Subjective Encounter Date: 05/21/19 Encounter Time: 09:00 Subjective: has exertional sob, no chest pain or palpitations says his pulse dropped down to 35 at home - Objective Vital Signs & Weight: Vital Signs (12 hours) Temp Pulse Resp BP Pulse Ox 05/21/19 07:45 97.4 F L 43 L 14 134/68 98 05/21/19 03:00 97.5 F L 59 L 16 126/59 L 95 Weight Weight 198 lb I&O: 05/20/19 05/21/19 05/22/19 06:59 06:59 07:59 Intake Total 508 Output Total 850 Balance -342 Result Diagrams: 05/20/19 20:12 05/21/19 04:15 Additional Labs: Accuchecks 05/21/19 05/21/19 05/20/19 10:08 05:40 20:36 POC Glucose 327 H 224 H 221 H Hospitalist ROS - Medication Medications: Active Medications Generic Name Dose Route Start Last Admin Trade Name Freq PRN Reason Stop Dose Admin Aspirin 81 mg 05/21/19 09:00 05/21/19 08:56 Ecotrin PO 81 mg DAILY IVANA Administration Ferrous Sulfate 325 mg 05/21/19 08:00 05/21/19 08:56 Feosol PO 325 mg BID-WM IVANA Administration Sodium Chloride 1,000 mls @ 50 mls/hr 05/20/19 23:45 05/21/19 01:10 Normal Saline 0.9% IV 05/21/19 19:44 1,000 mls .Q20H IVANA Administration Insulin Human Lispro 0 units 05/20/19 23:06 05/21/19 10:54 Humalog SC 5 unit .MILD SLIDING SCALE PRN Administration Mild Correctional Scale Ranolazine 500 mg 05/21/19 09:00 05/21/19 08:56 Ranexa PO 500 mg BID IVANA Administration - Exam General Appearance: awake alert Eye: PERRL, anicteric sclera ENT: no oropharyngeal lesions, moist mucosa Neck: supple, no JVD Heart: RRR, no murmur Respiratory: no wheezes, no rales Gastrointestinal: soft, non-tender, non-distended, normal bowel sounds Extremities: no cyanosis, 1+ LE edema Neurological: cranial nerve grossly intact, no focal deficits Psychiatric: normal affect, A&O x 3 Hosp A/P (1) Bradycardia Code(s): R00.1 - BRADYCARDIA, UNSPECIFIED Status: Acute (2) ZAKI (acute kidney injury) Code(s): N17.9 - ACUTE KIDNEY FAILURE, UNSPECIFIED Status: Acute (3) DM (diabetes mellitus) Code(s): E11.9 - TYPE 2 DIABETES MELLITUS WITHOUT COMPLICATIONS Status: Chronic Qualifiers: Diabetes mellitus type: type 2 Diabetes mellitus termite exterminator insulin use: without skilled nursing use Diabetes mellitus complication status: with hyperglycemia Qualified Code(s): E11.65 - Type 2 diabetes mellitus with hyperglycemia (4) Atrial fibrillation Code(s): I48.91 - UNSPECIFIED ATRIAL FIBRILLATION Status: Chronic Qualifiers: Atrial fibrillation type: longstanding persistent Qualified Code(s): I48.11 - Longstanding persistent atrial fibrillation (5) Coronary artery disease Code(s): I25.10 - ATHSCL HEART DISEASE OF [place] CORONARY ARTERY W/O ANG PCTRS Status: Chronic Qualifiers: Coronary Disease-Associated Artery/Lesion type: [place] artery [place] vs. 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
--- NOTE | 2019-05-21 14:05 | EKG ---
Test Reason : Blood Pressure : / mmHG Vent. Rate : 045 BPM Atrial Rate : 000 BPM P-R Int : 000 ms QRS Dur : 122 ms QT Int : 520 ms P-R-T Axes : 000 -31 119 degrees QTc Int : 449 ms Atrial fibrillation with slow ventricular response Left axis deviation Left bundle branch block Abnormal ECG Confirmed by SEB WALL DO ([id number]), communications editor CLINTON GONZALEZ ([id number]) on 05/21/2019 2:04:56 PM Referred By: Confirmed By:SEB WALL DO
[2019-05-21] MEDS ORDERED: Enoxaparin Sodium 80 MG/0.8 ML SYRINGE SC SCH (21:00)
[2019-05-21] MEDS: Enoxaparin Sodium 100 MG/ML SYRINGE SC SCH (21:48)
[2019-05-21] MEDS: Insulin Glargine 10 UNITS in Pre-Filled Syringe 1 EACH SC SCH (21:52)
[2019-05-22] MEDS: Melatonin 3 MG TAB PO PRN ×2 (00:25→20:23)
[2019-05-22 04:40] LABS: Hemoglobin 10.4 g/dL (14.0-18.0); Platelet Count 135 thou/uL (130-400)
[2019-05-22 05:12] VITALS: BMI 24.8
[2019-05-22] MEDS: Insulin Glargine 10 UNITS in Pre-Filled Syringe 1 EACH SC SCH ×2 (08:58→20:23)
[2019-05-22] MEDS: Enoxaparin Sodium 100 MG/ML SYRINGE SC SCH ×2 (08:59→20:22)
[2019-05-22] MEDS: Ferrous Sulfate 325 MG TAB PO SCH ×2 (08:59→17:07)
[2019-05-22] MEDS: Aspirin 81 mg Enteric Coated Tablet PO SCH (08:59)
--- NOTE | 2019-05-22 12:45 | PDOC.HOSPP ---
- Subjective Encounter Date: 05/22/19 Encounter Time: 09:15 Subjective: no sob or chest pain has increasing LE edema son at bedside - Objective Vital Signs & Weight: Vital Signs (12 hours) Temp Pulse Resp BP BP Pulse Ox 05/22/19 11:45 97.2 F L 69 18 160/77 H 95 05/22/19 08:00 97.9 F 70 12 123/57 L 97 05/22/19 04:00 96 05/22/19 03:39 97.8 F 62 18 149/77 H 96 05/22/19 00:00 97 Weight Admit Weight 198 lb Weight 198 lb 11.2 oz I&O: 05/21/19 05/22/19 05/23/19 05:59 06:59 06:59 Intake Total Output Total Balance Result Diagrams: 05/22/19 04:19 05/21/19 04:15 Additional Labs: Accuchecks 05/22/19 05/22/19 05/21/19 11:22 05:28 20:28 POC Glucose 216 H 131 H 159 H 05/21/19 16:31 POC Glucose 175 H Hospitalist ROS - Medication Medications: Active Medications Generic Name Dose Route Start Last Admin Trade Name Freq PRN Reason Stop Dose Admin Aspirin 81 mg 05/21/19 09:00 05/22/19 08:59 Ecotrin PO 81 mg DAILY IVANA Administration Enoxaparin Sodium 90 mg 05/21/19 21:00 05/22/19 08:59 Lovenox SC 90 mg 0900,2100 IVANA Administration Ferrous Sulfate 325 mg 05/21/19 08:00 05/22/19 08:59 Feosol PO 325 mg BID-WM IVANA Administration Insulin Glargine 10 units/ 0.1 mls @ 0 mls/hr 05/21/19 21:00 05/22/19 08:58 Miscellaneous Medication SC 0.1 mls BID IVANA Administration Insulin Human Lispro 0 units 05/20/19 23:06 05/21/19 17:22 Humalog SC 2 unit .MILD SLIDING SCALE PRN Administration Mild Correctional Scale Melatonin 3 mg 05/22/19 00:15 05/22/19 00:25 Melatonin PO 3 mg HS PRN Administration Insomnia Ranolazine 500 mg 05/21/19 09:00 05/22/19 08:59 Ranexa PO 500 mg BID IVANA Administration - Exam General Appearance: awake alert Eye: PERRL, anicteric sclera ENT: no oropharyngeal lesions, moist mucosa Neck: supple, no JVD Heart: RRR, no murmur Respiratory: no wheezes, no rales Gastrointestinal: soft, non-tender, non-distended, normal bowel sounds Extremities: no cyanosis, 1+ LE edema Neurological: cranial nerve grossly intact, no focal deficits Psychiatric: normal affect, A&O x 3 Hosp A/P (1) Bradycardia Code(s): R00.1 - BRADYCARDIA, UNSPECIFIED Status: Acute (2) ZAKI (acute kidney injury) Code(s): N17.9 - ACUTE KIDNEY FAILURE, UNSPECIFIED Status: Resolved (3) DM (diabetes mellitus) Code(s): E11.9 - TYPE 2 DIABETES MELLITUS WITHOUT COMPLICATIONS Status: Chronic Qualifiers: Diabetes mellitus type: type 2 Diabetes mellitus intermodal truck driver insulin use: without intermodal truck driver use Diabetes mellitus complication status: with hyperglycemia Qualified Code(s): E11.65 - Type 2 diabetes mellitus with hyperglycemia (4) Atrial fibrillation Code(s): I48.91 - UNSPECIFIED ATRIAL FIBRILLATION Status: Chronic Qualifiers: Atrial fibrillation type: longstanding persistent Qualified Code(s): I48.11 - Longstanding persistent atrial fibrillation (5) Coronary artery disease Code(s): I25.10 - ATHSCL HEART DISEASE OF [place] CORONARY ARTERY W/O ANG PCTRS Status: Chronic Qualifiers: Coronary Disease-Associated Artery/Lesion type: [place] artery [place] vs. 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 is going for pcm and additional procedures in am for suspected SSS/tachy rosi syndrome. hemostable
[2019-05-22] MEDS: HumaLOG 300 UNITS/3 ML VIAL SC PRN ×2 (13:42→18:00)
--- NOTE | 2019-05-22 16:42 | PDOC.CPN ---
- Subjective Date: 05/22/19 Time: 16:41 Interval history: His only complaint today is increased leg swelling and abdominal girth. - Review of Systems General: denies: fever/chills, weight/appetite/sleep changes, night sweats, fatigue Respiratory: denies: cough, congestion, shortness of breath, exercise intolerance Cardiovascular: reports: edema. denies: chest pain, palpitation, paroxysmal nocturnal dyspnea, orthopnea Gastrointestinal: denies: nausea, vomiting, diarrhea, constipation, abd pain, GI bleeding Musculoskeletal: denies: pain, tenderness, stiffness, swelling, arthritis/ arthralgias Neurological: denies: numbness, syncope, seizure, weakness - Objective Allergies/Adverse Reactions: Allergies Allergy/AdvReac Type Severity Reaction Status Date / Time diazepam [From Valium] Allergy HALLUCINATI Verified 12/16/16 11:36 ONS Visit Medications: Current Medications Aspirin (Ecotrin) 81 mg PO DAILY [facility] Last Admin: 05/22/19 08:59 Dose: 81 mg Dextrose/Water (Dextrose 50%) 25 gm SLOW IVP PRN PRN PRN Reason: Hypoglycemia Enoxaparin Sodium (Lovenox) 90 mg SC 0900,2100 [facility] Last Admin: 05/22/19 08:59 Dose: 90 mg Ferrous Sulfate (Feosol) 325 mg PO BID-WM [facility] Last Admin: 05/22/19 08:59 Dose: 325 mg Glucagon (Glucagon) 1 mg IM PRN PRN PRN Reason: Hypoglycemia Dextrose/Water (D5w) 1,000 mls @ 0 mls/hr IV .Q0M PRN PRN Reason: Hypoglycemia Insulin Glargine 10 units/ (Miscellaneous Medication) 0.1 mls @ 0 mls/hr SC BID [facility] Last Admin: 05/22/19 08:58 Dose: 0.1 mls Insulin Human Lispro (Humalog) 0 units SC .MILD SLIDING SCALE PRN PRN Reason: Mild Correctional Scale Last Admin: 05/22/19 13:42 Dose: 3 unit Melatonin (Melatonin) 3 mg PO HS PRN PRN Reason: Insomnia Last Admin: 05/22/19 00:25 Dose: 3 mg Nitroglycerin (Nitrostat) 0.4 mg SL Q5MIN PRN PRN Reason: Chest Pain Ranolazine (Ranexa) 500 mg PO BID [facility] Last Admin: 05/22/19 08:59 Dose: 500 mg Sodium Chloride (Flush - Normal Saline) 10 ml IVF PRN PRN PRN Reason: Saline Flush Vital Signs & Weight: Vital Signs Temp Pulse Resp BP BP Pulse Ox 05/22/19 11:45 97.2 F L 69 18 160/77 H 95 05/22/19 08:00 97.9 F 70 12 123/57 L 97 Admit Weight 198 lb Weight 198 lb 11.2 oz - Physical Exam General: alert & oriented x3 HEENT: mucus membranes moist Neck: supple neck Cardiac: regular rate and rhythm Lungs: clear to auscultation Neuro: grossly intact Abdomen: ascites Extremities: 2+ LE edema Skin: clear Musculoskeletal: no pain - Labs Result Diagrams: 05/22/19 04:19 05/21/19 04:15 Troponin/CKMB CK-MB (CK-2) 2.6 ng/mL (0-6.6) 05/20/19 14:53 Troponin I 0.042 ng/mL (< 0.028) H 05/20/19 20:12 - Telemetry Sinus rhythms and dysrhythmias: sinus rhythm - Assessment/Plan Assessment/Plan: 1. Afib with SVR. 2. Symptomatic bradycardia. 3. QRS at 122 4. LV dysfunction EF at 40-45% 5. Acute on chronic systolic heart fialure. PLAN: - He would benefit from a BiV PPM. Will consult EP. - IV lasix.
[2019-05-22] MEDS ORDERED: Furosemide 100 MG/10 ML VIAL SLOW IVP SCH (17:00)
[2019-05-23] MEDS ORDERED: Furosemide 100 MG/10 ML VIAL SLOW IVP SCH ×2 (06:00→08:27)
[2019-05-23 06:24] LABS: Anion Gap 13 mmol/L (10-20); BUN (Urea Nitrogen) 31 mg/dL (8.4-25.7); Calc. Creatinine Clearance 52 mL/min (70-130); Calcium 9.7 mg/dL (7.8-10.44); Carbon Dioxide 28 mmol/L (23-31); Chloride 102 mmol/L (98-107); Estimated GFR-MDRD 50; Glucose 105 mg/dL (83-110); Potassium 3.9 mmol/L (3.5-5.1); Sodium 139 mmol/L (136-145)
[2019-05-23] MEDS ORDERED: Furosemide 40 MG/4 ML VIAL SLOW IVP SCH (08:45)
[2019-05-23] MEDS: Aspirin 81 mg Enteric Coated Tablet PO SCH (09:24)
[2019-05-23] MEDS: Insulin Glargine 10 UNITS in Pre-Filled Syringe 1 EACH SC SCH ×2 (09:24→21:01)
[2019-05-23] MEDS: Ferrous Sulfate 325 MG TAB PO SCH ×2 (09:24→16:30)
[2019-05-23] MEDS: Furosemide 40 MG/4 ML VIAL SLOW IVP SCH (14:48)
--- NOTE | 2019-05-23 15:22 | PDOC.CPN ---
- Subjective Date: 05/23/19 Time: 15:20 Interval history: He had a few episodes of lightheadedness that correlated with sinus bradycardia down to the 30's. - Review of Systems General: denies: fever/chills, weight/appetite/sleep changes, night sweats, fatigue Respiratory: denies: cough, congestion, shortness of breath, exercise intolerance Cardiovascular: denies: chest pain, palpitation, edema, paroxysmal nocturnal dyspnea, orthopnea Gastrointestinal: denies: nausea, vomiting, diarrhea, constipation, abd pain, GI bleeding Musculoskeletal: denies: pain, tenderness, stiffness, swelling, arthritis/ arthralgias Neurological: denies: numbness, syncope, seizure, weakness - Objective Allergies/Adverse Reactions: Allergies Allergy/AdvReac Type Severity Reaction Status Date / Time diazepam [From Valium] Allergy HALLUCINATI Verified 12/16/16 11:36 ONS Visit Medications: Current Medications Aspirin (Ecotrin) 81 mg PO DAILY [facility] Last Admin: 05/23/19 09:24 Dose: 81 mg Dextrose/Water (Dextrose 50%) 25 gm SLOW IVP PRN PRN PRN Reason: Hypoglycemia Ferrous Sulfate (Feosol) 325 mg PO BID-[facility] Last Admin: 05/23/19 09:24 Dose: 325 mg Furosemide (Lasix) 40 mg SLOW IVP 0600,1400 [facility] Last Admin: 05/23/19 14:48 Dose: 40 mg Glucagon (Glucagon) 1 mg IM PRN PRN PRN Reason: Hypoglycemia Dextrose/Water (D5w) 1,000 mls @ 0 mls/hr IV .Q0M PRN PRN Reason: Hypoglycemia Insulin Glargine 10 units/ (Miscellaneous Medication) 0.1 mls @ 0 mls/hr SC BID [facility] Last Admin: 05/23/19 09:24 Dose: Not Given Insulin Human Lispro (Humalog) 0 units SC .MILD SLIDING SCALE PRN PRN Reason: Mild Correctional Scale Last Admin: 05/22/19 18:00 Dose: 3 unit Melatonin (Melatonin) 3 mg PO HS PRN PRN Reason: Insomnia Last Admin: 05/22/19 20:23 Dose: 3 mg Nitroglycerin (Nitrostat) 0.4 mg SL Q5MIN PRN PRN Reason: Chest Pain Ranolazine (Ranexa) 500 mg PO BID [facility] Last Admin: 05/23/19 09:24 Dose: 500 mg Sodium Chloride (Flush - Normal Saline) 10 ml IVF PRN PRN PRN Reason: Saline Flush Last Admin: 05/22/19 20:23 Dose: 10 ml Vital Signs & Weight: Vital Signs Temp Pulse Resp BP BP Pulse Ox 05/23/19 12:12 97.7 F 57 L 20 156/72 H 100 05/23/19 09:18 97.3 F L 40 L 14 148/70 H 99 05/23/19 04:00 97.5 F L 43 L 16 128/63 98 Admit Weight 198 lb Weight 197 lb - Physical Exam General: alert & oriented x3 HEENT: mucus membranes moist Neck: supple neck Cardiac: regular rate and rhythm Lungs: clear to auscultation Neuro: grossly intact Abdomen: active bowel sounds Extremities: no edema Skin: clear Musculoskeletal: no pain - Labs Result Diagrams: 05/22/19 04:19 05/23/19 05:49 Troponin/CKMB CK-MB (CK-2) 2.6 ng/mL (0-6.6) 05/20/19 14:53 Troponin I 0.042 ng/mL (< 0.028) H 05/20/19 20:12 - Telemetry Sinus rhythms and dysrhythmias: sinus rhythm - Assessment/Plan Assessment/Plan: 1. Afib with SVR. 2. Symptomatic bradycardia. 3. QRS at 122 4. LV dysfunction EF at 40-45% 5. Acute on chronic systolic heart failure. PLAN: - He would benefit from a BiV PPM. EP consult pending. - Full anticoag with full dose lovenox for now, Hold at midnight for PPM tomorrow.
[2019-05-23 17:04] LABS: #Eosinphils 0.1 thou/uL (0.0-0.7); #Lymphocytes 0.8 thou/uL (1.20-3.40); #Monocytes 0.4 thou/uL (0.11-0.59); #Neutrophils 2.4 thou/uL (1.40-6.50); %Basophils 0.4 % (0.0-1.0); %Eosinophils 2.4 % (0.0-10.0); %Lymphocytes 21.6 % (21.0-51.0); %Neutrophils 65.7 % (42.0-75.0); Hemoglobin 11.9 g/dL (14.0-18.0); Mean Corpuscular HGB CONC 33.2 g/dL (32.0-36.0); Mean Corpuscular Hemoglobin 31.5 pg (27.0-31.0); Mean Corpuscular Volume 94.9 fL (78.0-98.0); Mean Platelet Volume 7.8 fL (7.4-10.4); Platelet Count 146 thou/uL (130-400); RBC Distribution Width 14.4 % (11.5-14.5); Red Blood Cell (RBC) Count 3.78 mill/uL (4.70-6.10); White Blood Cell (WBC) Count 3.6 thou/uL (4.8-10.8)
[2019-05-23 17:35] LABS: Anion Gap 12 mmol/L (10-20); BUN (Urea Nitrogen) 28 mg/dL (8.4-25.7); Calc. Creatinine Clearance 47 mL/min (70-130); Calcium 9.7 mg/dL (7.8-10.44); Carbon Dioxide 31 mmol/L (23-31); Chloride 99 mmol/L (98-107); Estimated GFR-MDRD 44; Glucose 211 mg/dL (83-110); Potassium 3.8 mmol/L (3.5-5.1); Sodium 138 mmol/L (136-145)
--- NOTE | 2019-05-23 18:13 | CON ---
DATE OF CONSULTATION: 05/23/2019 REASON FOR CONSULTATION: Sinus node dysfunction, left bundle branch block, atrial fibrillation. PIN CLEANER: Tripp Sinha MD HISTORY OF PRESENT ILLNESS: Mr. Faith is an 83-year-old gentleman, well known to our practice for history of atrial arrhythmias. He underwent initial PVI in 2014 with a redo ablation in [address] Wilder. He has had his left atrial appendage isolated. He had early recurrence requiring cardioversion and low- dose amiodarone initiation. This was discontinued in February 2017 for gait instability. Multaq had been tried for antiarrhythmic therapy in the past, but did not tolerate this medication. He was last seen in our office in July of 2017, in sinus rhythm. He is known to have a left bundle branch block up to 130 milliseconds in duration. Mr. Faith presented to [facility] Emergency Room with shortness of breath and bradycardia that have been progressive over the past few weeks to a month. He had been increasing his torsemide to try to remove some fluid and eventually his fluid came under control, but his symptoms otherwise did not change. He had contacted his nursing center tutor via phone and was prompted to check his blood pressure which revealed at home that his heart rate was 34. He was then advised to go to the emergency room. He was found to be in atrial fibrillation with slow ventricular response. He is on no AV dalila blocking medications as of three weeks ago when he had stopped his Coreg. He is on Eliquis chronically for stroke prophylaxis given his left atrial appendage isolation. Since admitting to [facility], his heart rate at lowest will go to 30 to 31 beats per minute and the highest traced on telemetry is mid 70s. He is symptomatic with shortness of breath and fatigue as well as some dizziness when his heart rate is in the 30s. His ejection fraction was assessed in July of 2018 and found to be 45% to 50%. Reevaluation in this hospital stay reveals an ejection fraction of 40% to 45%. EP consultation is requested for consideration of a biventricular pacemaker. Mr. Faith currently feeling fairly well. He does endorse some shortness of breath and fatigue that is worse with any amount of activity or exertion. He denies any palpitations, stroke, stroke-like symptoms, or interruptions in his blood thinning medication. Denies any fevers, chills, recent infectious disease illnesses or any chest pain or pressure. PAST MEDICAL HISTORY: 1. Persistent atrial fibrillation, status post two PVIs, 2014, redo 2017 including left atrial appendage isolation. 2. Atypical atrial flutter requiring antiarrhythmic therapy, but could not tolerate Multaq or amiodarone. 3. Coronary artery disease with prior bypass grafting. 4. Hypertension. 5. Mildly reduced LV systolic function. 6. Diabetes. 7. Advanced age. 8. Left atrial appendage isolation requiring lifelong anticoagulation. ALLERGIES: NO KNOWN DRUG ALLERGIES. MEDICATIONS: Home medications include 1. Metformin 500 mg b.i.d. 2. Glyburide 5 mg b.i.d. 3. Torsemide 30 mg daily. 4. Ranexa 500 mg p.o. b.i.d. 5. Potassium chloride 10 mEq daily. 6. Nitroglycerin sublingual as needed. 7. Zestril 2.5 mg daily. 8. Fish oil 1000 mg b.i.d. 9. Iron 325 mg p.o. b.i.d. 10. Vitamin B12 2500 mcg daily. 11. Vitamin D 1000 units daily. 12. Aspirin 81 mg daily. 13. Eliquis 2.5 mg p.o. b.i.d. FAMILY HISTORY: Noncontributory. SOCIAL HISTORY: He is . 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 Has strong family support. Denies alcohol, tobacco, or illicit drug use. PHYSICAL EXAMINATION: VITAL SIGNS: 97.7, pulse 40, blood pressure 148/70, respirations 14, oxygen is 99% on room air. Patient is alert, oriented, speech is slightly slurred. He is in no apparent distress. At the time of exam is sitting upright in a chair. NECK: Supple without jugular venous distention. There is no lymphadenopathy. His trachea is midline. HEENT: Oral mucosa is moist and pink with adequate dentition. CARDIAC: His heart rate is extremely slow. PMI is nondisplaced. LUNGS: Clear to auscultation bilaterally without wheezes, crackles, or rhonchi. Respirations are even and unlabored. ABDOMEN: Soft, nontender without palpable masses. EXTREMITIES: Warm and dry to touch without clubbing, cyanosis, or edema. NEUROLOGIC: Grossly intact. Positive for slightly slurred speech and gait was not assessed. LABORATORY DATA: Telemetry and EKGs show atrial fibrillation with slow ventricular rates down to 30 beats per minute. Highest is 70. There is a left bundle branch block up to 130 milliseconds is seen. On his telemetry tracings, I do not see a significant change in his QRS morphology that would suggest any junctional bradycardia. Hemoglobin 10.4, hematocrit 31.2, platelet count is 135. Chemistry, potassium 3.9, creatinine 1.36, was 1.61 on admission. Echocardiogram on 05/21/2019, EF 40% to 45% with mild concentric LVH, moderately dilated left atrium. IMPRESSION: 1. Sick sinus syndrome, symptomatic bradycardia. 2. Longstanding persistent atrial fibrillation. 3. Left atrial appendage isolation requiring lifelong anticoagulation therapy. 4. Intolerance to amiodarone with gait instability. 5. Coronary artery disease with prior bypass grafting. 6. Moderately reduced ejection fraction of 40% to 45%. 7. Hypertension. 8. Diabetes. Mr. Faith is a delightful 83-year-old gentleman known to our group for his atrial fibrillation and left bundle branch block. I have found that he is severely bradycardic with ventricular rates in the 30s and symptomatic with this. His QRS is approximately 130 milliseconds. He is not chronically in atrial fibrillation. P waves difficult to see on his telemetry tracings but sinus rhythm/rosi is seen. With his severe bradycardia, pacemaker therapy is absolutely indicated as he would have high RV pacing already. I would recommend he undergo a biventricular pacemaker implant. We discussed the risks, benefits, and alternatives. The risks include bleeding, hematoma formation, infection, pneumothorax, pericardial effusion and possible tamponade or device malfunction, lead dislodgement. The patient voices understanding and wishes to proceed at the earliest convenience. Dr. Boo is available for procedures tomorrow and will also evaluate the patient at that time. All questions were answered. We will keep him n.p.o. after midnight and consent is obtained for his pacemaker implant. I would anticipate him being able to recover and go home a few hours after the implant if no other medical issues require attention. Also his left atrial appendage has been isolated and no interruption in anticoagulation should be done surrounding the time of implant. I did discuss with the patient that this does increase the risk for hematoma and bleeding complications at the pocket. Thank you for allowing us to participate in the care of this patient. DAVID will continue to follow. Job ID: [id number] ESCOBAR
--- NOTE | 2019-05-23 19:39 | PDOC.HOSPP ---
- Subjective Encounter Date: 05/23/19 Subjective: The patient was seen and examined this morning. He denied any new complaints at that time. He stated whenever his heart rate drops he feels "awful". - Objective Vital Signs & Weight: Vital Signs (12 hours) Temp Pulse Resp BP BP Pulse Ox 05/23/19 16:25 97.9 F 71 20 152/72 H 97 05/23/19 12:12 97.7 F 57 L 20 156/72 H 100 05/23/19 09:18 97.3 F L 40 L 14 148/70 H 99 Weight Admit Weight 198 lb Weight 197 lb I&O: 05/22/19 05/23/19 05/24/19 06:59 06:59 06:59 Intake Total Output Total Balance Result Diagrams: 05/23/19 16:57 05/23/19 16:57 Additional Labs: Accuchecks 05/23/19 05/23/19 05/23/19 16:50 10:39 05:45 POC Glucose 209 H 100 114 H 05/22/19 20:23 POC Glucose 213 H Hospitalist ROS - Medication Medications: Active Medications Generic Name Dose Route Start Last Admin Trade Name Freq PRN Reason Stop Dose Admin Aspirin 81 mg 05/21/19 09:00 05/23/19 09:24 Ecotrin PO 81 mg DAILY IVANA Administration Ferrous Sulfate 325 mg 05/21/19 08:00 05/23/19 16:30 Feosol PO 325 mg BID-WM IVANA Administration Furosemide 40 mg 05/23/19 14:00 05/23/19 14:48 Lasix SLOW IVP 40 mg 0600,1400 IVANA Administration Insulin Glargine 10 units/ 0.1 mls @ 0 mls/hr 05/21/19 21:00 05/23/19 09:24 Miscellaneous Medication SC Not Given BID IVANA Insulin Human Lispro 0 units 05/20/19 23:06 05/22/19 18:00 Humalog SC 3 unit .MILD SLIDING SCALE PRN Administration Mild Correctional Scale Melatonin 3 mg 05/22/19 00:15 05/22/19 20:23 Melatonin PO 3 mg HS PRN Administration Insomnia Ranolazine 500 mg 05/21/19 09:00 05/23/19 09:24 Ranexa PO 500 mg BID IVANA Administration Sodium Chloride 10 ml 05/20/19 19:05 05/22/19 20:23 Flush - Normal Saline IVF 10 ml PRN PRN Administration Saline Flush - Exam General Appearance: NAD, awake alert Eye: PERRL ENT: normocephalic atraumatic Neck: supple Heart: RRR, no murmur, no gallops, no rubs Respiratory: CTAB, no wheezes, no rales, no ronchi Gastrointestinal: soft, non-tender, non-distended, normal bowel sounds Hosp A/P (1) Bradycardia Code(s): R00.1 - BRADYCARDIA, UNSPECIFIED Status: Acute (2) Volume overload Code(s): E87.70 - FLUID OVERLOAD, UNSPECIFIED Status: Acute (3) DM (diabetes mellitus) Code(s): E11.9 - TYPE 2 DIABETES MELLITUS WITHOUT COMPLICATIONS Status: Chronic Qualifiers: Diabetes mellitus type: type 2 Diabetes mellitus salvage determiner insulin use: without retirement use Diabetes mellitus complication status: with hyperglycemia Qualified Code(s): E11.65 - Type 2 diabetes mellitus with hyperglycemia (4) Atrial fibrillation Code(s): I48.91 - UNSPECIFIED ATRIAL FIBRILLATION Status: Chronic Qualifiers: Atrial fibrillation type: longstanding persistent Qualified Code(s): I48.11 - Longstanding persistent atrial fibrillation (5) Coronary artery disease Code(s): I25.10 - ATHSCL HEART DISEASE OF [place] CORONARY ARTERY W/O ANG PCTRS Status: Chronic Qualifiers: Coronary Disease-Associated Artery/Lesion type: [place] artery [place] vs. transplanted heart: ambler heart Associated angina: without angina Qualified Code(s): I25.10 - Atherosclerotic heart disease of [place] coronary artery without angina pectoris - Plan The patient's volume status improving with diuresis. His weight decreased by 1 pound over the past 24 hours. Lasix has been decreased to 40 mg IV twice daily to avoid worsening kidney function. Sick sinus syndrome causing bradycardia with atrial fibrillation. Plan for permanent biventricular pacemaker placement tomorrow.
[2019-05-23] MEDS: Enoxaparin Sodium 100 MG/ML SYRINGE SC SCH (20:59)
[2019-05-23] MEDS: Melatonin 3 MG TAB PO PRN (21:07)
[2019-05-24 04:48] LABS: Eosinophils 4 % (0-10); Hemoglobin 10.8 g/dL (14.0-18.0); Lymphocytes 37 % (21-51); MDiff Complete? YES; Mean Corpuscular HGB CONC 32.4 g/dL (32.0-36.0); Mean Corpuscular Hemoglobin 30.5 pg (27.0-31.0); Mean Corpuscular Volume 94.2 fL (78.0-98.0); Monocytes 6 % (0-10); Neutrophil 53 % (42-75); Platelet Count 142 thou/uL (130-400); Platelet Morphology Comment Appears Adequate; RBC Distribution Width 14.5 % (11.5-14.5); Red Blood Cell (RBC) Count 3.54 mill/uL (4.70-6.10); White Blood Cell (WBC) Count 4.1 thou/uL (4.8-10.8)
[2019-05-24 04:50] LABS: Anion Gap 13 mmol/L (10-20); BUN (Urea Nitrogen) 27 mg/dL (8.4-25.7); Calc. Creatinine Clearance 55 mL/min (70-130); Calcium 9.7 mg/dL (7.8-10.44); Carbon Dioxide 31 mmol/L (23-31); Chloride 101 mmol/L (98-107); Estimated GFR-MDRD 53; Glucose 86 mg/dL (83-110); Potassium 3.5 mmol/L (3.5-5.1); Sodium 141 mmol/L (136-145)
[2019-05-24] MEDS: Furosemide 40 MG/4 ML VIAL SLOW IVP SCH ×2 (05:22→14:51)
[2019-05-24] MEDS: Aspirin 81 mg Enteric Coated Tablet PO SCH (08:22)
[2019-05-24] MEDS: Ferrous Sulfate 325 MG TAB PO SCH ×2 (08:22→16:06)
[2019-05-24] MEDS: Insulin Glargine 10 UNITS in Pre-Filled Syringe 1 EACH SC SCH ×2 (08:23→20:27)
[2019-05-24] MEDS: Enoxaparin Sodium 100 MG/ML SYRINGE SC SCH (08:23)
[2019-05-24] MEDS ORDERED: Lidocaine 1% PF 5 ML VIAL ONE (09:30)
[2019-05-24] MEDS ORDERED: Metoclopramide HCl 10 MG/2 ML VIAL ONE (09:30)
[2019-05-24] MEDS ORDERED: PROPOFOL 200 MG/20 ML VIAL ONE (09:30)
[2019-05-24] MEDS ORDERED: Ondansetron PF 4 MG/2 ML Vial ONE (09:30)
[2019-05-24] MEDS ORDERED: PHENYLEPHRINE-NS 100 MCG/ML 10 ML SYRINGE ONE (09:30)
[2019-05-24] MEDS ORDERED: Gentamicin 80 MG/2 ML VIAL ONE (10:44)
[2019-05-24] MEDS ORDERED: CEFAZOLIN 1 GM VIAL ONE (10:44)
[2019-05-24] MEDS ORDERED: Lidocaine 1% (PF) 30 ML VIAL ONE (10:45)
[2019-05-24] MEDS ORDERED: Fentanyl 100 MCG/2 ML VIAL ONE (11:34)
[2019-05-24] MEDS ORDERED: Propofol 500 MG/50 ML VIAL ONE (11:35)
[2019-05-24] MEDS ORDERED: PROPOFOL 20 ML ONE (11:35)
[2019-05-24] MEDS ORDERED: Famotidine/PF 20 mg/2ml Vial ONE (11:35)
--- NOTE | 2019-05-24 11:42 | PDOC.HOSPP ---
- Subjective Encounter Date: 05/24/19 Subjective: No new complaints - Objective Vital Signs & Weight: Vital Signs (12 hours) Temp Pulse Resp BP BP Pulse Ox 05/24/19 10:53 97.9 F 60 18 153/70 H 99 05/24/19 07:16 98.1 F 50 L 18 135/61 96 05/24/19 04:00 97.8 F 73 21 H 162/82 H 97 Weight Admit Weight 198 lb Weight 192 lb 12.8 oz I&O: 05/23/19 05/24/19 05/25/19 06:59 06:59 06:59 Intake Total 480 Output Total 650 Balance -170 Result Diagrams: 05/24/19 04:08 05/24/19 04:08 Additional Labs: Accuchecks 05/24/19 05/24/19 05/23/19 10:56 05:58 20:18 POC Glucose 127 H 122 H 242 H 05/23/19 16:50 POC Glucose 209 H Hospitalist ROS - Medication Medications: Active Medications Generic Name Dose Route Start Last Admin Trade Name Freq PRN Reason Stop Dose Admin Aspirin 81 mg 05/21/19 09:00 05/24/19 08:22 Ecotrin PO 81 mg DAILY IVANA Administration Enoxaparin Sodium 90 mg 05/23/19 21:00 05/24/19 08:23 Lovenox SC Not Given 0900,2100 [facility] Ferrous Sulfate 325 mg 05/21/19 08:00 05/24/19 08:22 Feosol PO 325 mg BID-WM IVANA Administration Furosemide 40 mg 05/23/19 14:00 05/24/19 05:22 Lasix SLOW IVP Not Given 0600,1400 [facility] Insulin Glargine 10 units/ 0.1 mls @ 0 mls/hr 05/21/19 21:00 05/24/19 08:23 Miscellaneous Medication SC Not Given BID [facility] Insulin Human Lispro 0 units 05/20/19 23:06 05/22/19 18:00 Humalog SC 3 unit .MILD SLIDING SCALE PRN Administration Mild Correctional Scale Melatonin 3 mg 05/22/19 00:15 05/23/19 21:07 Melatonin PO 3 mg HS PRN Administration Insomnia Ranolazine 500 mg 05/21/19 09:00 05/24/19 08:22 Ranexa PO 500 mg BID IVANA Administration Sodium Chloride 10 ml 05/20/19 19:05 05/23/19 21:02 Flush - Normal Saline IVF 10 ml PRN PRN Administration Saline Flush - Exam General Appearance: NAD Neck: supple, no JVD Heart: RRR Respiratory: CTAB Gastrointestinal: soft Extremities: no cyanosis Neurological: cranial nerve grossly intact, no focal deficits Hosp A/P (1) Bradycardia Code(s): R00.1 - BRADYCARDIA, UNSPECIFIED Status: Acute (2) Volume overload Code(s): E87.70 - FLUID OVERLOAD, UNSPECIFIED Status: Acute (3) DM (diabetes mellitus) Code(s): E11.9 - TYPE 2 DIABETES MELLITUS WITHOUT COMPLICATIONS Status: Chronic Qualifiers: Diabetes mellitus type: type 2 Diabetes mellitus terminal gauger supervisor insulin use: without terminal gauger supervisor use Diabetes mellitus complication status: with hyperglycemia Qualified Code(s): E11.65 - Type 2 diabetes mellitus with hyperglycemia (4) Atrial fibrillation Code(s): I48.91 - UNSPECIFIED ATRIAL FIBRILLATION Status: Chronic Qualifiers: Atrial fibrillation type: longstanding persistent Qualified Code(s): I48.11 - Longstanding persistent atrial fibrillation (5) Coronary artery disease Code(s): I25.10 - ATHSCL HEART DISEASE OF [place] CORONARY ARTERY W/O ANG PCTRS Status: Chronic Qualifiers: Coronary Disease-Associated Artery/Lesion type: [place] artery [place] vs. transplanted heart: [place] heart Associated angina: without angina Qualified Code(s): I25.10 - Atherosclerotic heart disease of [place] coronary artery without angina pectoris - Plan 05/22: The patient's volume status improving with diuresis. His weight decreased by 1 pound over the past 24 hours. Lasix has been decreased to 40 mg IV twice daily to avoid worsening kidney function. Sick sinus syndrome causing bradycardia with atrial fibrillation. Plan for permanent biventricular pacemaker placement tomorrow. 05/23: For Pacemaker placement today.
[2019-05-24] MEDS ORDERED: Ondansetron HCl/PF 4 MG/2 ML Vial IVP PRN (13:15)
--- NOTE | 2019-05-24 14:21 | RAD ---
PORTABLE CHEST 1 VIEW: DATE: 05/24/2019. TIME: 1:49 PM. HISTORY: IACD placement. FINDINGS/IMPRESSION: There has been interval placement of a left-sided pacemaker device since 05/20/2019. No pneumothorax i s identified. The remainder of the exam is otherwise stable. POS: TPC
--- NOTE | 2019-05-24 14:31 | PDOC.BPN ---
- Brief Progress Note Post BiV PPM. May Dc from EP perspective after recovery complete. Continue OAC immediately as has had JESSICA isolated with past ablations. Continue keflex x 7days as prescribed. 2 week wound check will be arranged
[2019-05-24] MEDS: Fluticasone Propionate Nasal Spray 16 gm Bottle NASAL SCH ×2 (14:51→20:26)
[2019-05-24] MEDS: Cephalexin 250 MG CAP PO SCH ×2 (16:05→20:27)
--- NOTE | 2019-05-24 17:47 | PDOC.CPN ---
- Subjective Date: 05/24/19 Time: 17:46 Interval history: He had his BiV PPM placed earlier today and did well. - Review of Systems General: denies: fever/chills, weight/appetite/sleep changes, night sweats, fatigue Respiratory: denies: cough, congestion, shortness of breath, exercise intolerance Cardiovascular: denies: chest pain, palpitation, edema, paroxysmal nocturnal dyspnea, orthopnea Gastrointestinal: denies: nausea, vomiting, diarrhea, constipation, abd pain, GI bleeding Musculoskeletal: denies: pain, tenderness, stiffness, swelling, arthritis/ arthralgias Neurological: denies: numbness, syncope, seizure, weakness - Objective Allergies/Adverse Reactions: Allergies Allergy/AdvReac Type Severity Reaction Status Date / Time diazepam [From Valium] Allergy HALLUCINATI Verified 12/16/16 11:36 ONS Visit Medications: Current Medications Aspirin (Ecotrin) 81 mg PO DAILY [facility] Last Admin: 05/24/19 08:22 Dose: 81 mg Cephalexin (Keflex) 500 mg PO QID [facility] Stop: 05/31/19 13:01 Last Admin: 05/24/19 16:05 Dose: 500 mg Dextrose/Water (Dextrose 50%) 25 gm SLOW IVP PRN PRN PRN Reason: Hypoglycemia Enoxaparin Sodium (Lovenox) 90 mg SC 0900,2100 [facility] Stop: 05/24/19 23:59 Last Admin: 05/24/19 08:23 Dose: Not Given Ferrous Sulfate (Feosol) 325 mg PO BID-[facility] Last Admin: 05/24/19 16:06 Dose: 325 mg Fluticasone Propionate (Flonase Nasal [place]) 0 gm NASAL DAILY [facility] Last Admin: 05/24/19 14:51 Dose: Not Given Furosemide (Lasix) 40 mg SLOW IVP 0600,1400 [facility] Last Admin: 05/24/19 14:51 Dose: 40 mg Glucagon (Glucagon) 1 mg IM PRN PRN PRN Reason: Hypoglycemia Dextrose/Water (D5w) 1,000 mls @ 0 mls/hr IV .Q0M PRN PRN Reason: Hypoglycemia Insulin Glargine 10 units/ (Miscellaneous Medication) 0.1 mls @ 0 mls/hr SC BID [facility] Last Admin: 05/24/19 08:23 Dose: Not Given Insulin Human Lispro (Humalog) 0 units SC .MILD SLIDING SCALE PRN PRN Reason: Mild Correctional Scale Last Admin: 05/22/19 18:00 Dose: 3 unit Melatonin (Melatonin) 3 mg PO HS PRN PRN Reason: Insomnia Last Admin: 05/23/19 21:07 Dose: 3 mg Nitroglycerin (Nitrostat) 0.4 mg SL Q5MIN PRN PRN Reason: Chest Pain Ranolazine (Ranexa) 500 mg PO BID IVANA Last Admin: 05/24/19 08:22 Dose: 500 mg Sodium Chloride (Flush - Normal Saline) 10 ml IVF PRN PRN PRN Reason: Saline Flush Last Admin: 05/23/19 21:02 Dose: 10 ml Vital Signs & Weight: Vital Signs Temp Pulse Resp BP BP Pulse Ox 05/24/19 16:00 97.5 F L 62 18 168/77 H 100 05/24/19 14:15 98.1 F 62 18 137/70 96 05/24/19 10:53 97.9 F 60 18 153/70 H 99 05/24/19 07:16 98.1 F 50 L 18 135/61 96 Admit Weight 198 lb Weight 192 lb 12.8 oz - Physical Exam General: alert & oriented x3 HEENT: mucus membranes moist Neck: supple neck Cardiac: regular rate and rhythm Lungs: normal breath sounds Neuro: grossly intact Abdomen: active bowel sounds Extremities: no edema Skin: clear Musculoskeletal: no pain - Labs Result Diagrams: 05/24/19 04:08 05/24/19 04:08 Troponin/CKMB CK-MB (CK-2) 2.6 ng/mL (0-6.6) 05/20/19 14:53 Troponin I 0.042 ng/mL (< 0.028) H 05/20/19 20:12 - Telemetry Sinus rhythms and dysrhythmias: sinus rhythm - Assessment/Plan Assessment/Plan: 1. Afib with SVR. 2. Symptomatic bradycardia, s/p BiV PPM. 3. QRS at 122 4. LV dysfunction EF at 40-45% 5. Acute on chronic systolic heart failure. PLAN: - Hold Lovenox now then start Xarelto home dose in AM. - May discharge tomorrow if stable. - Dr. Sinha will follow up in the morning.
--- NOTE | 2019-05-24 19:45 | OP ---
DATE OF PROCEDURE: 05/24/2019 PROCEDURE PERFORMED: Dual-chamber resynchronization pacemaker. CLINICAL INDICATION: Intermittent high-grade AV block with symptoms. ASA CLASSIFICATION: III. ANESTHESIA: Total IV anesthesia per Anesthesiology. ADDITIONAL CARDIAC MEDICATIONS: None. ESTIMATED BLOOD LOSS: Less than 10 mL. TOTAL FLUOROSCOPY TIME: 16.3 minutes. ACUTE COMPLICATIONS: None apparent. METHODS: After informed consent was obtained, the patient was taken to the EP lab in a fasting state. Left shoulder was prepped and draped. Using a 15 blade, a 2-inch incision was made in the left shoulder. Bovie and blunt dissection used to perform a pocket in the pectoralis fascia. Using a micropuncture needle over the second and first ribs, the left axillary/subclavian vein was accessed with an extrathoracic approach. Wires were inserted into the central venous system, and wires were used to place 7-Dominican sheaths into the right atrium. These sheaths were used to place an LV lead into the lateral branch of the coronary sinus, a right ventricular lead into the right ventricular septum, and an atrial lead into the right atrial appendage remnant. Adequate pacing and sensing were confirmed. Sheaths were removed. Hemostasis was achieved with direct pressure and suture closure. The leads were secured to the pectoralis fascia with 2-0 silk. The wound was irrigated, and the leads were connected to the appropriate ports in the synchronization pacemaker. This was inserted and secured to the pectoralis fascia with 2-0 silk. The pocket was closed with 2-0 and 4-0 Vicryl. Skin was closed with simple running subcuticular 5-0 Monocryl. Dermabond was applied across the wound. RESULTS: 1. Pacing lead thresholds: Atrial threshold 0.5 V at 0.4 milliseconds and impedance 532 ohms. RV threshold 0.75 V at 0.4 milliseconds and impedance 684 ohms. LV threshold 1.25 V at 0.5 milliseconds and impedance 437 ohms. 10 V did not stimulate over diaphragm. 2. Signal analysis: P-wave amplitude 1.5 mV. R-wave amplitude 8.3 mV. 3. Serial numbers: The device was a Medtronic, model W4TR01, Percepta Quad CRTP, MRI compatible, serial #[id number]. The atrial lead was a Medtronic, model 5076-52, serial #[id number]. The RV lead was a Medtronic, model 3830-59, serial #[id number]. The LV lead was a Medtronic, model 4298-78, serial #[id number]. IMPRESSION: Successful insertion and testing of a dual-chamber resynchronization pacemaker. RECOMMENDATIONS: Antibiotic prophylaxis. Job ID: [id number]
[2019-05-25 04:47] LABS: Band 1 % (5-11); Eosinophils 3 % (0-10); Hemoglobin 10.9 g/dL (14.0-18.0); Hypochromia SLIGHT = 6-15 cells (100X) (0-5/hpf); Lymphocytes 5 % (21-51); MDiff Complete? YES; Mean Corpuscular Hemoglobin 31.3 pg (27.0-31.0); Mean Corpuscular Volume 94.8 fL (78.0-98.0); Mean Platelet Volume 7.9 fL (7.4-10.4); Monocytes 4 % (0-10); Neutrophil 87 % (42-75); Platelet Count 127 thou/uL (130-400); Platelet Morphology Comment Appears Adequate; RBC Distribution Width 14.4 % (11.5-14.5); Red Blood Cell (RBC) Count 3.48 mill/uL (4.70-6.10); White Blood Cell (WBC) Count 4.5 thou/uL (4.8-10.8)
[2019-05-25 04:56] LABS: Anion Gap 11 mmol/L (10-20); BUN (Urea Nitrogen) 24 mg/dL (8.4-25.7); Calc. Creatinine Clearance 57 mL/min (70-130); Calcium 9.2 mg/dL (7.8-10.44); Carbon Dioxide 31 mmol/L (23-31); Chloride 101 mmol/L (98-107); Estimated GFR-MDRD 57; Glucose 187 mg/dL (83-110); Potassium 3.7 mmol/L (3.5-5.1); Sodium 139 mmol/L (136-145)
[2019-05-25] MEDS: Furosemide 40 MG/4 ML VIAL SLOW IVP SCH ×2 (06:11→13:45)
[2019-05-25] MEDS: Ferrous Sulfate 325 MG TAB PO SCH ×2 (08:33→15:55)
[2019-05-25] MEDS: Aspirin 81 mg Enteric Coated Tablet PO SCH (08:33)
[2019-05-25] MEDS: Cephalexin 250 MG CAP PO SCH ×4 (08:33→20:57)
[2019-05-25] MEDS: Insulin Glargine 10 UNITS in Pre-Filled Syringe 1 EACH SC SCH ×2 (08:34→20:58)
--- NOTE | 2019-05-25 09:25 | PDOC.EP ---
- Subjective Date: 05/25/19 Time: 08:00 Interval History: follow up after BiV PPM implant on 05/24/2019. Feels much improved. Slight tenderness at implant sight but reportedly not enough for him to need pain medication, - Review of Systems Constitutional: denies: chills, fever, malaise, sweats, weakness, other Respiratory: denies: cough, dry, hemoptysis, pleuritic pain, shortness of breath , SOB with excertion, sputum, wheezing, other Cardiology: denies: chest pain, edema, heart racing, light headedness, paroxysmal noc. dyspnea, orthopnea, palpitations, passing out, pleuritic pain, pressure, swelling, other - Objective Allergies/Adverse Reactions: Allergies Allergy/AdvReac Type Severity Reaction Status Date / Time diazepam [From Valium] Allergy HALLUCINATI Verified 12/16/16 11:36 ONS Current Medications Aspirin (Ecotrin) 81 mg PO DAILY [facility] Last Admin: 05/25/19 08:33 Dose: 81 mg Cephalexin (Keflex) 500 mg PO QID [facility] Stop: 05/31/19 13:01 Last Admin: 05/25/19 08:33 Dose: 500 mg Dextrose/Water (Dextrose 50%) 25 gm SLOW IVP PRN PRN PRN Reason: Hypoglycemia Ferrous Sulfate (Feosol) 325 mg PO BID[facility] Last Admin: 05/25/19 08:33 Dose: 325 mg Fluticasone Propionate (Flonase Nasal [place]) 0 gm NASAL DAILY [facility] Last Admin: 05/24/19 20:26 Dose: 1 spray Furosemide (Lasix) 40 mg SLOW IVP 0600,1400 [facility] Last Admin: 05/25/19 06:11 Dose: Not Given Glucagon (Glucagon) 1 mg IM PRN PRN PRN Reason: Hypoglycemia Dextrose/Water (D5w) 1,000 mls @ 0 mls/hr IV .Q0M PRN PRN Reason: Hypoglycemia Insulin Glargine 10 units/ (Miscellaneous Medication) 0.1 mls @ 0 mls/hr SC BID [facility] Last Admin: 05/25/19 08:34 Dose: Not Given Insulin Human Lispro (Humalog) 0 units SC .MILD SLIDING SCALE PRN PRN Reason: Mild Correctional Scale Last Admin: 05/22/19 18:00 Dose: 3 unit Melatonin (Melatonin) 3 mg PO HS PRN PRN Reason: Insomnia Last Admin: 05/23/19 21:07 Dose: 3 mg Nitroglycerin (Nitrostat) 0.4 mg SL Q5MIN PRN PRN Reason: Chest Pain Ranolazine (Ranexa) 500 mg PO BID [facility] Last Admin: 05/25/19 08:34 Dose: 500 mg Rivaroxaban (Xarelto) 15 mg PO 1700 [facility] Sodium Chloride (Flush - Normal Saline) 10 ml IVF PRN PRN PRN Reason: Saline Flush Last Admin: 05/23/19 21:02 Dose: 10 ml Vital Signs & Weight: Vital Signs Temp Pulse Resp BP Pulse Ox 05/25/19 06:51 97.9 F 62 18 151/67 H 97 05/25/19 04:00 98.0 F 61 16 151/67 H 98 Admit Weight 198 lb Weight 191 lb 12.8 oz I/O: I/O 05/24/19 05/25/19 05/26/19 06:59 06:59 06:59 Intake Total 480 1720 Output Total 650 2100 Balance -170 -380 - Quality Measures Condition: Atrial Fibrillation/Flutter (hx or current) CV meds: Eliquis: Yes - Physical Exam General: alert & oriented x3, appears well, no apparent distress, speech clear, affect appropriate HEENT: mucus membranes moist, normocephaly Neck: supple neck, midline trachea, no JVD/HJR, no masses, no bruit, no lymphadenopathy, no thromegaly Cardiology: regular rate and rhythm, no murmur, regular rate, regular rhythm, PMI nondisplaced Lungs: clear to auscultation, normal breath sounds, no wheeze, rales, rhonchi Neurology: cranial nerve 2-12 intact, sensory function intact, no lateralizing findings Skin: device site stable w/o swelling, left sided device. negative: bruising, drainage, erosion, hematoma, swelling - Labs Result Diagrams: 05/25/19 03:40 05/25/19 03:40 - EKG Interpretation EKG Method: Telemetry EKG shows: Sinus rhythm - Device Device: biventricular, pacemaker Device Result: [employer] - Assessment/Plan Assessment/Plan: 1. SSS -s/p BiV PPM implant 2. Prs AFib/Flutter -s/p 2 prior PVAI including JESSICA isolation 3. Lifelong OAC - continue eliquis indefinitely unless undergoes JESSICA occlusion 4. BiV PPM -[employer] - Device function stable by check this AM -AV pacing on tele -Post implant anbx, keflex x7 days -CXR stable OK for DC by EP Continue eliquis and rx for keflex. Will see back in 2 weeks for wound/device check and also plan to discuss watchman in the future as he require lifelong OAC. Uses Eliquis at home so xarelto was stopped and Eliquis restarted.
[2019-05-25] MEDS ORDERED: Rivaroxaban 15 MG TAB PO SCH (17:00)
[2019-05-25] MEDS ORDERED: Potassium Chloride 20 MEQ TAB PO SCH (18:15)
--- NOTE | 2019-05-25 18:31 | PRG ---
DATE OF SERVICE: 05/25/2019 SUBJECTIVE: Mr. Faith is feeling well, no complaints. OBJECTIVE: VITAL SIGNS: Blood pressure 148/66, pulse 60 and it is paced. LUNGS: Clear. CARDIAC: Normal S1, normal S2. ABDOMEN: Soft and nontender. EXTREMITIES: No edema. ASSESSMENT: 1. Status post bradycardia, status post biventricular pacemaker, doing well. 2. Atrial fibrillation, persistent, chronic. 3. Mild hypokalemia. PLAN: 1. Replete potassium. 2. Should able to be released home tomorrow. Job ID: [id number]
[2019-05-25] MEDS: Apixaban 2.5 MG TAB PO SCH (21:02)
[2019-05-25] MEDS: HumaLOG 300 UNITS/3 ML VIAL SC PRN (21:10)
[2019-05-26 03:56] VITALS: TEMP 97.6
[2019-05-26 05:14] LABS: Band 5 % (5-11); Eosinophils 4 % (0-10); Hemoglobin 10.3 g/dL (14.0-18.0); Lymphocytes 23 % (21-51); MDiff Complete? YES; Mean Corpuscular HGB CONC 33.2 g/dL (32.0-36.0); Mean Corpuscular Hemoglobin 31.3 pg (27.0-31.0); Mean Corpuscular Volume 94.5 fL (78.0-98.0); Mean Platelet Volume 8.1 fL (7.4-10.4); Monocytes 17 % (0-10); Neutrophil 51 % (42-75); Platelet Count 117 thou/uL (130-400); Platelet Morphology Comment Appears Decreased; RBC Distribution Width 14.2 % (11.5-14.5); Red Blood Cell (RBC) Count 3.28 mill/uL (4.70-6.10); White Blood Cell (WBC) Count 4.6 thou/uL (4.8-10.8)
[2019-05-26 05:32] LABS: Anion Gap 9 mmol/L (10-20); BUN (Urea Nitrogen) 22 mg/dL (8.4-25.7); Calc. Creatinine Clearance 64 mL/min (70-130); Calcium 9.4 mg/dL (7.8-10.44); Carbon Dioxide 31 mmol/L (23-31); Chloride 103 mmol/L (98-107); Estimated GFR-MDRD 66; Glucose 126 mg/dL (83-110); Sodium 139 mmol/L (136-145)
[2019-05-26] MEDS: Furosemide 40 MG/4 ML VIAL SLOW IVP SCH ×2 (05:43→07:32)
[2019-05-26] MEDS ORDERED: Potassium Chloride 10 MEQ TAB PO SCH (08:00)
[2019-05-26] MEDS ORDERED: Torsemide 20 MG TAB PO SCH (09:00)
[2019-05-26] MEDS: Cephalexin 250 MG CAP PO SCH (09:59)
[2019-05-26] MEDS: Aspirin 81 mg Enteric Coated Tablet PO SCH (10:00)
[2019-05-26] MEDS: Apixaban 2.5 MG TAB PO SCH (10:01)
[2019-05-26] MEDS: Ferrous Sulfate 325 MG TAB PO SCH (10:02)
[2019-05-26] MEDS: Insulin Glargine 10 UNITS in Pre-Filled Syringe 1 EACH SC SCH (10:12)
[2019-05-26] MEDS: Fluticasone Propionate Nasal Spray 16 gm Bottle NASAL SCH (10:14)
[2019-05-26 10:20] VITALS: BP 166/80
--- NOTE | 2019-05-26 12:30 | DIS ---
DATE OF ADMISSION: 05/20/2019 DATE OF DISCHARGE: 05/26/2019 HISTORY OF PRESENT ILLNESS AND HOSPITAL COURSE: The patient is an 83-year-old male with past medical history of atrial fibrillation, status post 2 PVIs in 2014 and 2017, atrial flutter, requiring antiarrhythmic therapy, but could not tolerate Multaq or amiodarone, coronary artery disease, hypertension, systolic CHF, diabetes, and left atrial appendage isolation requiring anticoagulation. He presented to the emergency department with complaints of shortness of breath and feeling "bad." He was found to be bradycardic and in atrial fibrillation. The patient was admitted to the hospital and Cardiology Service consulted. The patient was not on any AV dalila blocking medications and he was chronically anticoagulated on Eliquis. He was referred to Electrophysiology Service inpatient and underwent successful biventricular permanent pacemaker implantation on 05/24/2019. Subsequently, bradycardia resolved and the patient has been feeling much better. The device was interrogated on 05/25/2019, and functionality was deemed to be stable. The patient was cleared to discharge by EP with outpatient followup recommended in 2 weeks for wound and device check. DISCHARGE DIAGNOSES: 1. Atrial fibrillation with slow ventricular response. 2. Symptomatic bradycardia. 3. Systolic congestive heart failure with EF of 40% to 45%, acute on chronic. 4. Diabetes mellitus. 5. Coronary artery disease. DISCHARGE MEDICATIONS: 1. Eliquis 2.5 mg orally twice daily. 2. Keflex 500 mg orally twice daily for 5 days. 3. Aspirin 81 mg orally daily. 4. Ferrous sulfate 325 mg orally twice daily. 5. Nitroglycerin 0.4 mg sublingual as needed for chest pain. 6. Ranolazine 500 mg orally twice daily. 7. Glyburide 5 mg orally twice daily. 8. Lisinopril 2.5 mg orally daily. 9. Metformin 500 mg orally twice daily. 10. Torsemide 30 mg orally daily. 11. Potassium chloride 10 mEq orally daily. Job ID: [id number]
== END 2019-05-26 11:20 | disposition home or self-care (01) | DRG 242 ==
LOC: ERS 14:23 → 2NO 17:53
PROVIDERS: ADMIT Family Medicine; ATTEND Family Medicine
PROC: 0JH607Z Insertion of Cardiac Resynchronization Pacemaker Pulse Generator into Chest Subcutaneous Tissue and Fascia, Open Approach (ICD-10-PCS; principal; 2019-05-24)
PROC: 02H63JZ Insertion of Pacemaker Lead into Right Atrium, Percutaneous Approach (ICD-10-PCS; 2019-05-24)
PROC: 02HK3JZ Insertion of Pacemaker Lead into Right Ventricle, Percutaneous Approach (ICD-10-PCS; 2019-05-24)
PROC: 02HL3JZ Insertion of Pacemaker Lead into Left Ventricle, Percutaneous Approach (ICD-10-PCS; 2019-05-24)
PROC: 4B02XSZ Measurement of Cardiac Pacemaker, External Approach (ICD-10-PCS; 2019-05-25)
DX: I48.0 Paroxysmal atrial fibrillation (principal); I50.23 Acute on chronic systolic (congestive) heart failure; N17.9 Acute kidney failure, unspecified; I49.5 Sick sinus syndrome; I48.11 Longstanding persistent atrial fibrillation; I11.0 Hypertensive heart disease with heart failure; I25.10 Atherosclerotic heart disease of native coronary artery without angina pectoris; R26.9 Unspecified abnormalities of gait and mobility; E11.65 Type 2 diabetes mellitus with hyperglycemia; Z66 Do not resuscitate; E78.5 Hyperlipidemia, unspecified; I25.5 Ischemic cardiomyopathy; I44.7 Left bundle-branch block, unspecified; Z98.49 Cataract extraction status, unspecified eye; Z87.891 Personal history of nicotine dependence; Z95.1 Presence of aortocoronary bypass graft; Z88.8 Allergy status to other drugs, medicaments and biological substances; Z95.5 Presence of coronary angioplasty implant and graft; Z98.890 Other specified postprocedural states; E87.6 Hypokalemia; Z79.01 Long term (current) use of anticoagulants
CPT/HCPCS: 33208; 33225; 36005; 36415; 36416; 71045; 75820; 76770; 80048; 80053; 80162; 82550; 82553; 83690; 83735; 83880; 84484; 85007; 85014; 85018; 85025; 85027; 85049; 93005; 93010; 93306; 93798; C1882; C1898; C1900; J0690; J1580; J1650; J1815; J1940; J2001; J2405; J2704; J2765; J3010; S0028

== ENCOUNTER 2019-09-14 02:15 | Emergency (ER) | payer MEDICARE ==
[2019-09-14 02:49] LABS: #Eosinphils 0.2 thou/uL (0.0-0.7); #Lymphocytes 1.2 thou/uL (1.20-3.40); #Monocytes 0.6 thou/uL (0.11-0.59); #Neutrophils 3.1 thou/uL (1.40-6.50); %Basophils 0.4 % (0.0-1.0); %Eosinophils 3.7 % (0.0-10.0); %Monocytes 11.9 % (0.0-10.0); %Neutrophils 59.9 % (42.0-75.0); Hemoglobin 12.6 g/dL (14.0-18.0); Mean Corpuscular Hemoglobin 30.6 pg (27.0-31.0); Mean Corpuscular Volume 92.9 fL (78.0-98.0); Mean Platelet Volume 7.9 fL (7.4-10.4); Platelet Count 126 thou/uL (130-400); RBC Distribution Width 13.6 % (11.5-14.5); Red Blood Cell (RBC) Count 4.12 mill/uL (4.70-6.10); White Blood Cell (WBC) Count 5.1 thou/uL (4.8-10.8)
[2019-09-14 03:10] LABS: ALT (SGPT) 20 U/L (8-55); AST (SGOT) 19 U/L (5-34); Albumin 4.2 g/dL (3.4-4.8); Alkaline Phosphatase 87 U/L (40-110); Anion Gap 13 mmol/L (10-20); BUN (Urea Nitrogen) 28 mg/dL (8.4-25.7); Bilirubin, Total 0.7 mg/dL (0.2-1.2); Calc. Creatinine Clearance 0 mL/min (70-130); Carbon Dioxide 28 mmol/L (23-31); Chloride 103 mmol/L (98-107); Estimated GFR-MDRD 57; Globulin 3.2 g/dL (2.4-3.5); Glucose 187 mg/dL (83-110); Potassium 3.6 mmol/L (3.5-5.1); Protein, Total 7.4 g/dL (5.8-8.1); Sodium 140 mmol/L (136-145)
[2019-09-14 03:38] LABS: Bacteria/HPF None Seen HPF (None Seen); Bilirubin Negative (Negative); Blood, Urine Negative (Negative); Clarity Clear (Clear); Glucose, Urine (Dipstick) Normal (Negative); Leukocyte Negative Leu/uL (Negative); Mucous/LPF Rare LPF (<2+); Nitrite Negative (Negative); Protein, Urine (Dipstick) 50 mg/dL (Neg-Trace); RBC/HPF 0-3 HPF (0-3); Squamous Epithelial 0-3 HPF (0-3); Urobilinogen Normal mg/dL (Less than 2); WBC/HPF 0-3 HPF (0-3)
--- NOTE | 2019-09-14 08:49 | CT ---
PRELIMINARY REPORT/[facility]/EMERGENCY AFTER HOURS PROCEDURE EXAM: CT Head Without Intravenous Contrast. CLINICAL HISTORY: PT THINKS HE MAYBE HAVING A STROKE. PT HAS RIGHT GROIN PAIN AND LEFT ARM WEAKNESS. PT STATES,"I HAVE BEEN SLURRING MY WORDS. TECHNIQUE: Axial computed tomography images of the head/brain without intravenous contrast. COMPARISON: None provided. FINDINGS: BRAIN: There is cerebral atrophy. There is no intracranial hemorrhage. Periventricular hypodensities are pre sent secondary to small vessel ischemic disease. VENTRICLES: No hydrocephalus. ORBITS: The orbits are unremarkable. SINUSES AND MASTOIDS: The paranasal sinuses and mastoid air cells are clear. SOFT TISSUES: No significant facial or scalp soft tissue swelling evident. No radiopaque foreign body is seen. BONES: No acute skull fracture. IMPRESSION: No acute intracranial abnormality. ELECTRONICALLY SIGNED BY: Amanda Cohen MD Sep 14, 2019 2:51:43 AM CDT This report is intended for review by the ordering physician only, in accordance of law. If you recei ve this report in error, please call [facility] at [phone]. FINAL REPORT CT BRAIN WITHOUT CONTRAST: I agree with the preliminary report given by Dr. Amanda Cohen [facility]. POS: [facility]
== END 2019-09-14 04:15 | disposition home or self-care (01) ==
LOC: ERS 02:15
DX: R47.81 Slurred speech (principal); I48.91 Unspecified atrial fibrillation; I10 Essential (primary) hypertension; E11.9 Type 2 diabetes mellitus without complications; I25.10 Atherosclerotic heart disease of native coronary artery without angina pectoris; Z79.84 Long term (current) use of oral hypoglycemic drugs; Z79.82 Long term (current) use of aspirin; Z79.899 Other long term (current) drug therapy
CPT/HCPCS: 36415; 70450; 80053; 81003; 81015; 85025; 93005

== ENCOUNTER 2019-09-22 11:13 | Outpatient (CLI) | payer MEDICARE ==
--- NOTE | 2019-09-22 11:59 | ULT ---
BILATERAL CAROTID DUPLEX ULTRASOUND: HISTORY: TIA, left arm weakness TECHNIQUE: Grayscale, color-flow and spectral Doppler ultrasound imaging of the extracranial carotid artery syst ems was performed bilaterally. FINDINGS: There is plaque formation on both sides The peak systolic velocity in the right ICA measures 76 cm/s with an end-diastolic velocity of 19 cm/ s and a systolic ratio of 1.12. The peak systolic velocity in the left ICA measures 62 cm/s with an end-diastolic velocity of 12 cm/s and a systolic ratio of 0.77. Flow in both vertebral arteries remains antegrade. IMPRESSION: No evidence of hemodynamically significant stenosis.
== END 2019-09-22 11:14 | disposition home or self-care (01) ==
LOC: SCSULT 11:13
PROVIDERS: ATTEND Family Medicine
DX: Z51.81 Encounter for therapeutic drug level monitoring (principal); Z79.01 Long term (current) use of anticoagulants
CPT/HCPCS: 93880

== ENCOUNTER 2021-01-06 23:27 | Inpatient (IN) | payer MEDICARE ==
[2021-01-07] LABS: #Lymphocytes 0.5 thou/uL (1.20-3.40); #Monocytes 0.7 thou/uL (0.11-0.59); %Basophils 0.2 % (0.0-1.0); %Eosinophils 0.6 % (0.0-10.0); %Lymphocytes 7.5 % (21.0-51.0); %Monocytes 9.1 % (0.0-10.0); %Neutrophils 82.6 % (42.0-75.0); Hemoglobin 12.3 g/dL (14.0-18.0); Mean Corpuscular HGB CONC 33.9 g/dL (32.0-36.0); Mean Corpuscular Hemoglobin 32.2 pg (27.0-31.0); Platelet Count 139 thou/uL (130-400); RBC Distribution Width 14.1 % (11.5-14.5); White Blood Cell (WBC) Count 7.2 thou/uL (4.8-10.8)
[2021-01-07] MEDS ORDERED: cefTRIAXone\\ROCEPHIN 2 GM VIAL ONE (00:19)
[2021-01-07] MEDS ORDERED: Azithromycin 500 MG VIAL ONE (00:19)
[2021-01-07 00:21] LABS: ALT (SGPT) 13 U/L (8-55); AST (SGOT) 18 U/L (5-34); Alkaline Phosphatase 100 U/L (40-110); Anion Gap 16 mmol/L (10-20); BUN (Urea Nitrogen) 41 mg/dL (8.4-25.7); Bilirubin, Total 0.8 mg/dL (0.2-1.2); Calc. Creatinine Clearance 0 mL/min (70-130); Calcium 9.9 mg/dL (7.8-10.44); Carbon Dioxide 25 mmol/L (23-31); Chloride 102 mmol/L (98-107); Globulin 3.4 g/dL (2.4-3.5); Glucose 237 mg/dL (83-110); Lipase 44 U/L (8-78); Potassium 4.4 mmol/L (3.5-5.1); Protein, Total 7.4 g/dL (5.8-8.1); Sodium 139 mmol/L (136-145)
[2021-01-07] MEDS ORDERED: Acetaminophen 500 MG TAB ONE (00:34)
[2021-01-07] MEDS ORDERED: Magnesium 2 GM/50 ML BAG (IN WATER) ONE (00:34)
[2021-01-07 00:42] LABS: CKMB 1.7 ng/mL (0-6.6)
[2021-01-07] MEDS ORDERED: Ondansetron PF 4 MG/2 ML Vial IVP PRN (02:37)
[2021-01-07] MEDS ORDERED: Acetaminophen 325 MG TAB PO PRN (02:37)
[2021-01-07] MEDS ORDERED: Nitroglycerin 0.4 MG TAB (25 Tab Bottle) SL PRN (02:37)
[2021-01-07] MEDS ORDERED: Benzonatate 100 MG CAP PO PRN (02:43)
[2021-01-07] MEDS ORDERED: Dextrose 5% in Water 1,000 ML IV PRN (02:51)
[2021-01-07] MEDS ORDERED: Dextrose 50% Abboject 50 ML SYRINGE SLOW IVP PRN (02:51)
[2021-01-07 03:03] LABS: SARS-CoV-2 NAA Rapid Test Not Detected (NotDetected)
[2021-01-07 04:24] LABS: #Lymphocytes 0.6 thou/uL (1.20-3.40); #Monocytes 0.9 thou/uL (0.11-0.59); #Neutrophils 8.2 thou/uL (1.40-6.50); %Basophils 0.2 % (0.0-1.0); %Eosinophils 0.3 % (0.0-10.0); %Lymphocytes 6.4 % (21.0-51.0); %Neutrophils 84.2 % (42.0-75.0); Hemoglobin 11.7 g/dL (14.0-18.0); Mean Corpuscular HGB CONC 33.6 g/dL (32.0-36.0); Mean Corpuscular Hemoglobin 31.5 pg (27.0-31.0); Mean Corpuscular Volume 93.7 fL (78.0-98.0); Mean Platelet Volume 7.8 fL (7.4-10.4); Platelet Count 138 thou/uL (130-400); RBC Distribution Width 14.1 % (11.5-14.5); Red Blood Cell (RBC) Count 3.71 mill/uL (4.70-6.10); White Blood Cell (WBC) Count 9.7 thou/uL (4.8-10.8)
[2021-01-07] MEDS: cefTRIAXone\\ROCEPHIN 2 GM in Sodium Chloride 0.9% 100 ML IVPB SCH (04:43)
[2021-01-07] MEDS: Sodium Chloride 0.9% 1,000 ML IV SCH ×4 (04:44→21:10)
[2021-01-07 04:52] LABS: BUN (Urea Nitrogen) 33 mg/dL (8.4-25.7); Calc. Creatinine Clearance 61 mL/min (70-130); Calcium 9.4 mg/dL (7.8-10.44); Carbon Dioxide 20 mmol/L (23-31); Cardiac Risk 4.8 (Less than 4.5); Chloride 106 mmol/L (98-107); Cholesterol 169 mg/dl (< 200 Desired); Glucose 162 mg/dL (83-110); HDL Cholesterol 35 mg/dL (>60 Neg Risk); LDL Cholesterol, Calculated 119 mg/dL; Potassium 4.1 mmol/L (3.5-5.1); Sodium 139 mmol/L (136-145); Triglycerides 75 mg/dL (Less than 150)
[2021-01-07 05:23] LABS: Anion Gap 17 mmol/L (10-20)
[2021-01-07 07:35] LABS: Troponin I 0.142 ng/mL (< 0.028)
[2021-01-07] MEDS: Aspirin 81 mg Enteric Coated Tablet PO SCH (08:03)
[2021-01-07] MEDS ORDERED: FLU VACC QS2021-22(65YR UP)/PF 240 MCG/0.7 ML SYRINGE IM ONE (09:00)
[2021-01-07] MEDS: Azithromycin 500 MG in Sodium Chloride 0.9% 250 ML 250 ML IVPB SCH (10:33)
[2021-01-07] MEDS: HumaLOG 300 UNITS/3 ML VIAL SC PRN ×2 (11:36→17:17)
[2021-01-07] MEDS ORDERED: Loratadine 10 MG TAB PO PRN (21:00)
[2021-01-07] MEDS ORDERED: Fluticasone Propionate Nasal Spray 16 gm Bottle NASAL SCH (21:15)
[2021-01-08] MEDS: cefTRIAXone\\ROCEPHIN 2 GM in Sodium Chloride 0.9% 100 ML IVPB SCH (04:34)
[2021-01-08 05:48] LABS: #Eosinphils 0.1 thou/uL (0.0-0.7); #Lymphocytes 0.8 thou/uL (1.20-3.40); #Monocytes 0.8 thou/uL (0.11-0.59); %Basophils 0.4 % (0.0-1.0); %Eosinophils 2.1 % (0.0-10.0); %Lymphocytes 12.4 % (21.0-51.0); %Monocytes 11.2 % (0.0-10.0); %Neutrophils 73.8 % (42.0-75.0); Hemoglobin 10.7 g/dL (14.0-18.0); Mean Corpuscular HGB CONC 33.1 g/dL (32.0-36.0); Mean Corpuscular Hemoglobin 31.3 pg (27.0-31.0); Mean Corpuscular Volume 94.5 fL (78.0-98.0); Mean Platelet Volume 7.8 fL (7.4-10.4); Platelet Count 132 thou/uL (130-400); RBC Distribution Width 14.1 % (11.5-14.5); Red Blood Cell (RBC) Count 3.42 mill/uL (4.70-6.10); White Blood Cell (WBC) Count 6.8 thou/uL (4.8-10.8)
[2021-01-08] MEDS: Azithromycin 500 MG in Sodium Chloride 0.9% 250 ML 250 ML IVPB SCH (05:52)
[2021-01-08 06:08] LABS: ALT (SGPT) 16 U/L (8-55); AST (SGOT) 22 U/L (5-34); Albumin 3.5 g/dL (3.4-4.8); Alkaline Phosphatase 83 U/L (40-110); Anion Gap 13 mmol/L (10-20); BUN (Urea Nitrogen) 35 mg/dL (8.4-25.7); Bilirubin, Total 1.1 mg/dL (0.2-1.2); Calc. Creatinine Clearance 56 mL/min (70-130); Calcium 9.1 mg/dL (7.8-10.44); Carbon Dioxide 25 mmol/L (23-31); Chloride 105 mmol/L (98-107); Globulin 2.9 g/dL (2.4-3.5); Glucose 161 mg/dL (83-110); Potassium 3.9 mmol/L (3.5-5.1); Protein, Total 6.4 g/dL (5.8-8.1); Sodium 139 mmol/L (136-145)
[2021-01-08] MEDS: HumaLOG 300 UNITS/3 ML VIAL SC PRN ×3 (06:23→17:47)
[2021-01-08 06:26] VITALS: BMI 26.7
[2021-01-08] MEDS: Fluticasone Propionate Nasal Spray 16 gm Bottle NASAL SCH (09:39)
[2021-01-08] MEDS: Aspirin 81 mg Enteric Coated Tablet PO SCH (09:39)
[2021-01-08] MEDS ORDERED: glyBURIDE 5 MG TAB PO SCH (21:00)
[2021-01-08] MEDS: metFORMIN 500 MG TAB PO SCH (21:36)
[2021-01-08] MEDS: glyBURIDE 5 MG TAB PO SCH (21:36)
[2021-01-08] MEDS: Fish Oil 1,000 MG CAP PO SCH (21:36)
[2021-01-09] MEDS: cefTRIAXone\\ROCEPHIN 2 GM in Sodium Chloride 0.9% 100 ML IVPB SCH (03:10)
[2021-01-09] MEDS: Azithromycin 500 MG in Sodium Chloride 0.9% 250 ML 250 ML IVPB SCH (04:05)
[2021-01-09] MEDS ORDERED: Non-Formulary Item 1 EACH (Cholecalciferol (Vitamin D3) [Vitamin D] 1000 UNIT Capsule) PO SCH (09:00)
[2021-01-09] MEDS ORDERED: Non-Formulary Item 1 EACH (Cyanocobalamin (Vitamin B-12) [Vitamin B12] 2,500 MCG Tablet) PO SCH (09:00)
[2021-01-09] MEDS ORDERED: Torsemide 20 MG TAB ONE (09:15)
[2021-01-09] MEDS: Fish Oil 1,000 MG CAP PO SCH ×2 (09:20→20:15)
[2021-01-09] MEDS: Torsemide 20 MG TAB PO SCH (09:20)
[2021-01-09] MEDS: glyBURIDE 5 MG TAB PO SCH ×2 (09:20→20:15)
[2021-01-09] MEDS: Cyanocobalamin (Vitamin B-12) 1,000 MCG TAB PO SCH (09:20)
[2021-01-09] MEDS: Aspirin 81 mg Enteric Coated Tablet PO SCH (09:21)
[2021-01-09] MEDS: Cholecalciferol 1,000 UNITS (25 MCG) TAB PO SCH (09:22)
[2021-01-09] MEDS: metFORMIN 500 MG TAB PO SCH ×2 (09:22→20:15)
[2021-01-09] MEDS: Fluticasone Propionate Nasal Spray 16 gm Bottle NASAL SCH (09:36)
[2021-01-09] MEDS: HumaLOG 300 UNITS/3 ML VIAL SC PRN ×2 (11:13→17:08)
[2021-01-09] MEDS ORDERED: Melatonin 3 MG TAB PO PRN (20:26)
[2021-01-10] MEDS: cefTRIAXone\\ROCEPHIN 2 GM in Sodium Chloride 0.9% 100 ML IVPB SCH (02:32)
[2021-01-10] MEDS: Azithromycin 500 MG in Sodium Chloride 0.9% 250 ML 250 ML IVPB SCH (03:21)
[2021-01-10 08:48] VITALS: BP 140/68; TEMP 97.5
[2021-01-10] MEDS: Cyanocobalamin (Vitamin B-12) 1,000 MCG TAB PO SCH (08:54)
[2021-01-10] MEDS: metFORMIN 500 MG TAB PO SCH (08:55)
[2021-01-10] MEDS: Fish Oil 1,000 MG CAP PO SCH (08:56)
[2021-01-10] MEDS: Aspirin 81 mg Enteric Coated Tablet PO SCH (08:56)
[2021-01-10] MEDS: Cholecalciferol 1,000 UNITS (25 MCG) TAB PO SCH (08:56)
[2021-01-10] MEDS: glyBURIDE 5 MG TAB PO SCH (08:56)
[2021-01-10] MEDS: Torsemide 20 MG TAB PO SCH (08:58)
[2021-01-10] MEDS: Fluticasone Propionate Nasal Spray 16 gm Bottle NASAL SCH (08:58)
== END 2021-01-10 11:57 | disposition home or self-care (01) | DRG 871 ==
LOC: ERS 23:27 → 2SW 01-07 00:56 → OBSVTOIN 01-07 04:56
PROVIDERS: ADMIT Student in an Organized Health Care Education/Training Program; ATTEND Internal Medicine
DX: A40.3 Sepsis due to Streptococcus pneumoniae (principal); J13 Pneumonia due to Streptococcus pneumoniae; I42.9 Cardiomyopathy, unspecified; R04.2 Hemoptysis; I13.0 Hypertensive heart and chronic kidney disease with heart failure and stage 1 through stage 4 chronic kidney disease, or unspecified chronic kidney disease; I25.110 Atherosclerotic heart disease of native coronary artery with unstable angina pectoris; N17.9 Acute kidney failure, unspecified; I48.11 Longstanding persistent atrial fibrillation; E87.2 Acidosis; Z66 Do not resuscitate; Z87.891 Personal history of nicotine dependence; Z20.822 Contact with and (suspected) exposure to COVID-19; E11.22 Type 2 diabetes mellitus with diabetic chronic kidney disease; I25.10 Atherosclerotic heart disease of native coronary artery without angina pectoris; E11.65 Type 2 diabetes mellitus with hyperglycemia; N18.30 Chronic kidney disease, stage 3 unspecified; I50.9 Heart failure, unspecified; Z88.8 Allergy status to other drugs, medicaments and biological substances; Z79.84 Long term (current) use of oral hypoglycemic drugs; Z79.82 Long term (current) use of aspirin; Z79.899 Other long term (current) drug therapy; Z79.01 Long term (current) use of anticoagulants; Z90.49 Acquired absence of other specified parts of digestive tract; Z95.1 Presence of aortocoronary bypass graft; Z51.5 Encounter for palliative care
CPT/HCPCS: 36415; 36416; 71045; 71275; 80048; 80053; 80061; 82553; 83605; 83690; 83735; 84443; 84484; 85025; 85379; 86140; 86850; 86900; 86901; 87040; 93005; 93306; 94760; 96374; 96375; G0378; J0456; J0696; J1815; J3475; J3490; J7050; U0002

== ENCOUNTER 2021-04-11 08:29 | Outpatient (CLI) | payer MEDICARE | END 2021-04-11 08:30 | disposition home or self-care (01) | LOC: BICRAD 08:29 | PROVIDERS: ATTEND Internal Medicine Critical Care Medicine | DX: R06.00 Dyspnea, unspecified (principal) | CPT/HCPCS: 71046 ==

== ENCOUNTER 2021-08-06 11:12 | Inpatient (IN) | payer MEDICARE ==
[2021-08-06] MEDS ORDERED: methylPREDNISolone Sod Succ/PF 125 MG/2 ML VIAL ONE (12:18)
[2021-08-06 12:22] LABS: #Lymphocytes 0.4 thou/uL (1.20-3.40); #Monocytes 0.5 thou/uL (0.11-0.59); #Neutrophils 5.6 thou/uL (1.40-6.50); %Basophils 0.3 % (0.0-1.0); %Eosinophils 0.3 % (0.0-10.0); %Lymphocytes 6.8 % (21.0-51.0); %Monocytes 7.1 % (0.0-10.0); %Neutrophils 85.5 % (42.0-75.0); Hemoglobin 9.8 g/dL (14.0-18.0); Mean Corpuscular HGB CONC 31.4 g/dL (32.0-36.0); Mean Corpuscular Volume 95.4 fL (78.0-98.0); Mean Platelet Volume 7.6 fL (7.4-10.4); Platelet Count 226 thou/uL (130-400); RBC Distribution Width 16.7 % (11.5-14.5); Red Blood Cell (RBC) Count 3.27 mill/uL (4.70-6.10); White Blood Cell (WBC) Count 6.5 thou/uL (4.8-10.8)
[2021-08-06 12:44] LABS: ALT (SGPT) 13 U/L (8-55); AST (SGOT) 64 U/L (5-34); Albumin 2.9 g/dL (3.4-4.8); Alkaline Phosphatase 83 U/L (40-110); Anion Gap 19 mmol/L (10-20); BUN (Urea Nitrogen) 73 mg/dL (8.4-25.7); Bilirubin, Total 0.5 mg/dL (0.2-1.2); Calc. Creatinine Clearance 0 mL/min (70-130); Calcium 9.4 mg/dL (7.8-10.44); Carbon Dioxide 23 mmol/L (23-31); Chloride 98 mmol/L (98-107); Globulin 4.5 g/dL (2.4-3.5); Glucose 69 mg/dL (83-110); Lipase 90 U/L (8-78); Protein, Total 7.4 g/dL (5.8-8.1); Sodium 133 mmol/L (136-145)
[2021-08-06 13:00] LABS: Potassium 7.1 mmol/L (3.5-5.1)
[2021-08-06] MEDS ORDERED: CALCIUM GLUC 1GM/NS 50ML BAG ONE (13:06)
[2021-08-06] MEDS ORDERED: Insulin Regular 300 UNITS/3 ML VIAL ONE (13:06)
[2021-08-06] MEDS ORDERED: Furosemide 40 MG/4 ML VIAL ONE (13:06)
[2021-08-06 13:17] LABS: CKMB 58.8 ng/mL (0-6.6)
[2021-08-06] MEDS ORDERED: Dextrose 50% Abboject 50 ML SYRINGE ONE (13:24)
[2021-08-06] MEDS ORDERED: Albuterol Sulfate 1.25 MG/3 ML NEB ONE (13:28)
[2021-08-06] MEDS ORDERED: Albuterol Sulfate 2.5 mg/0.5 ml Neb ONE ×2 (13:30→13:44)
[2021-08-06] MEDS ORDERED: Albuterol Sulfate 2.5 mg/3 ml Neb ONE (13:44)
[2021-08-06] MEDS ORDERED: Heparin 10,000 UNITS/ 10 ML VIAL ONE (14:41)
[2021-08-06 15:46] LABS: HBSAB Concentration Less than 8.00 mIU/mL; HBSAg Index 0.19 S/CO (0-0.99); Hep B Core Total Ab Non-Reactive (NonReactive); Hep B Surf AB Non-Reactive (NonReactive); Hep B Surf Ag Non-Reactive S/CO (NonReactive); Hep C IgG Ab Non-Reactive (NonReactive); Hep C Index 0.34 S/CO (0-0.79)
[2021-08-06 15:46] LABS: HBSAg Index 0.25 S/CO (0-0.99); Hep B Surf Ag Non-Reactive S/CO (NonReactive)
[2021-08-06] MEDS ORDERED: Ondansetron ODT 4 MG TAB SL PRN (16:00)
[2021-08-06] MEDS ORDERED: Ondansetron PF 4 MG/2 ML Vial IVP PRN (16:00)
[2021-08-06] MEDS ORDERED: Dextrose 50% Abboject 50 ML SYRINGE SLOW IVP PRN (16:08)
[2021-08-06] MEDS ORDERED: Acetaminophen 325 MG TAB PO PRN (16:08)
[2021-08-06] MEDS ORDERED: Dextrose 5% in Water 1,000 ML IV PRN (16:08)
[2021-08-06] MEDS ORDERED: Aspirin 81 mg Enteric Coated Tablet PO SCH (16:30)
[2021-08-06] MEDS ORDERED: Octreotide Acetate 50 MCG/ML AMP SLOW IVP SCH (16:45)
[2021-08-06 17:35] LABS: Bacteria/HPF 1+ HPF (None Seen); Bilirubin Negative (Negative); Blood, Urine Negative (Negative); Clarity Clear (Clear); Glucose, Urine (Dipstick) Normal (Negative); Ketone, Urine Negative (Negative); Leukocyte 250 Leu/uL (Negative); Nitrite Negative (Negative); Protein, Urine (Dipstick) 20 mg/dL (Neg-Trace); RBC/HPF 0-3 HPF (0-3); Specific Gravity, Urine 1.011 (1.002-1.036); Squamous Epithelial 0-3 HPF (0-3); Urobilinogen Normal mg/dL (Less than 2)
[2021-08-06 18:30] LABS: SARS-CoV-2 NAA Rapid Test Not Detected (NotDetected)
[2021-08-06 18:31] LABS: Lactic Acid 3.3 mmol/L (0.5-2.2)
[2021-08-06 18:37] LABS: CK (CPK) 324 U/L (30-200)
[2021-08-06 18:47] LABS: Troponin I 10.893 ng/mL (< 0.028)
[2021-08-06] MEDS: Famotidine/PF 20 mg/2ml Vial SLOW IVP SCH (20:55)
[2021-08-06] MEDS: Metoprolol Tartrate 25 MG TAB PO SCH ×2 (20:55→21:02)
[2021-08-06] MEDS ORDERED: Metoprolol Tartrate 25 MG TAB PO SCH (21:00)
[2021-08-06 21:40] LABS: Critical Call Chem Troponin I RESULT DECREASING; Troponin I 10.069 ng/mL (< 0.028)
[2021-08-06] MEDS ORDERED: Nitroglycerin 2% Ointment 1 INCH/1 GM Packet TOP SCH (22:00)
[2021-08-06 22:17] LABS: Anion Gap 18 mmol/L (10-20); BUN (Urea Nitrogen) 42 mg/dL (8.4-25.7); Calc. Creatinine Clearance 27 mL/min (70-130); Calcium 8.6 mg/dL (7.8-10.44); Carbon Dioxide 24 mmol/L (23-31); Chloride 96 mmol/L (98-107); Magnesium 1.8 mg/dL (1.6-2.6); Potassium 5.2 mmol/L (3.5-5.1); Sodium 133 mmol/L (136-145)
[2021-08-06] MEDS: Nitroglycerin 2% Ointment 1 INCH/1 GM Packet TOP SCH (22:48)
[2021-08-06] MEDS: HumaLOG 300 UNITS/3 ML VIAL SC PRN (22:55)
[2021-08-06 23:00] LABS: Glucose 150 mg/dL (83-110)
[2021-08-06] MEDS ORDERED: traZODone HCl 50 MG TAB PO SCH (23:45)
[2021-08-06] MEDS ORDERED: Lorazepam 2 MG/ML VIAL SLOW IVP SCH (23:45)
[2021-08-07] MEDS: HumaLOG 300 UNITS/3 ML VIAL SC PRN (00:55)
[2021-08-07] MEDS: Nitroglycerin 2% Ointment 1 INCH/1 GM Packet TOP SCH (06:28)
[2021-08-07 06:42] LABS: #Lymphocytes 0.3 thou/uL (1.20-3.40); #Monocytes 0.4 thou/uL (0.11-0.59); #Neutrophils 4.1 thou/uL (1.40-6.50); %Basophils 0.5 % (0.0-1.0); %Eosinophils 0.2 % (0.0-10.0); %Lymphocytes 5.3 % (21.0-51.0); %Monocytes 7.4 % (0.0-10.0); %Neutrophils 86.6 % (42.0-75.0); Hemoglobin 9.9 g/dL (14.0-18.0); Mean Corpuscular HGB CONC 30.6 g/dL (32.0-36.0); Mean Corpuscular Hemoglobin 29.2 pg (27.0-31.0); Mean Corpuscular Volume 95.5 fL (78.0-98.0); Mean Platelet Volume 7.7 fL (7.4-10.4); Platelet Count 136 thou/uL (130-400); RBC Distribution Width 16.9 % (11.5-14.5); Red Blood Cell (RBC) Count 3.39 mill/uL (4.70-6.10); White Blood Cell (WBC) Count 4.7 thou/uL (4.8-10.8)
[2021-08-07 07:02] LABS: Anion Gap 19 mmol/L (10-20); BUN (Urea Nitrogen) 49 mg/dL (8.4-25.7); Calc. Creatinine Clearance 23 mL/min (70-130); Calcium 9.3 mg/dL (7.8-10.44); Carbon Dioxide 24 mmol/L (23-31); Chloride 96 mmol/L (98-107); Glucose 122 mg/dL (83-110); Potassium 5.9 mmol/L (3.5-5.1); Sodium 133 mmol/L (136-145)
[2021-08-07 07:32] LABS: Actual Bicarbonate (HCO3a) 24.9 mEq/L (22-28); Base Excess (BEa) 0.6 mEq/L (-2.0 to +3.0); CO2 Tension 38.8 mmHg (35.0-45.0); Calcium, Ionized (arterial) 1.17 mmol/L (1.12-1.30); Carboxyhemoglobin (COHb) 0.5 gm% (0.0-3.0); Hemoglobin (Hb) 10.9 g/dL (14.0-18.0); O2 Tension (PaO2), arterial 61.9 mmHg (> 60.0); Potassium - ABG Lab 6.02 mmol/L (3.70-5.30); pH, Arterial 7.43 (7.35-7.45)
[2021-08-07 07:34] LABS: Puncture Site RBA
[2021-08-07] MEDS: cefTRIAXone\\ROCEPHIN 2 GM in Sodium Chloride 0.9% 100 ML IVPB SCH (08:20)
[2021-08-07] MEDS ORDERED: Heparin 10,000 UNITS/ 10 ML VIAL ONE (08:42)
[2021-08-07] MEDS ORDERED: Aspirin 325 mg Enteric Coated Tablet PO SCH (09:00)
[2021-08-07] MEDS: Heparin 5,000 UNITS/ML VIAL SC SCH ×3 (09:32→21:03)
[2021-08-07] MEDS: Metoprolol Tartrate 25 MG TAB PO SCH ×3 (09:34→11:57)
[2021-08-07] MEDS ORDERED: Digoxin 0.5 MG/2 ML AMP SLOW IVP SCH (11:00)
[2021-08-07] MEDS ORDERED: Amiodarone 450 MG in Dextrose 5% in Water 250 ML IVPB SCH (11:15)
[2021-08-07] MEDS: Amiodarone 450 MG, Admixture Fee 1 EACH in Dextrose 5% in Water 250 ML IVPB SCH (12:17)
[2021-08-07] MEDS ORDERED: Amiodarone 200 MG TAB PO SCH (15:00)
[2021-08-07] MEDS: Famotidine/PF 20 mg/2ml Vial SLOW IVP SCH (21:00)
[2021-08-08] MEDS ORDERED: Dextrose 10% in Water 1,000 ML IV SCH (02:00)
[2021-08-08] MEDS: Amiodarone 450 MG, Admixture Fee 1 EACH in Dextrose 5% in Water 250 ML IVPB SCH ×2 (02:22→20:12)
[2021-08-08 04:15] LABS: Hemoglobin A1c 6.5 % (4.0-6.0)
[2021-08-08 04:34] LABS: ALT (SGPT) 11 U/L (8-55); AST (SGOT) 43 U/L (5-34); Albumin 2.8 g/dL (3.4-4.8); Alkaline Phosphatase 68 U/L (40-110); Anion Gap 17 mmol/L (10-20); BUN (Urea Nitrogen) 35 mg/dL (8.4-25.7); Bilirubin, Total 0.5 mg/dL (0.2-1.2); Calc. Creatinine Clearance 0 mL/min (70-130); Calcium 8.8 mg/dL (7.8-10.44); Carbon Dioxide 27 mmol/L (23-31); Chloride 96 mmol/L (98-107); Globulin 4.1 g/dL (2.4-3.5); Glucose 81 mg/dL (83-110); Magnesium 1.9 mg/dL (1.6-2.6); Potassium 4.6 mmol/L (3.5-5.1); Protein, Total 6.9 g/dL (5.8-8.1); Sodium 135 mmol/L (136-145)
[2021-08-08 04:37] LABS: #Lymphocytes 0.5 thou/uL (1.20-3.40); #Monocytes 0.4 thou/uL (0.11-0.59); %Eosinophils 0.7 % (0.0-10.0); %Lymphocytes 9.7 % (21.0-51.0); %Monocytes 8.4 % (0.0-10.0); %Neutrophils 81.2 % (42.0-75.0); Hemoglobin 9.7 g/dL (14.0-18.0); Mean Corpuscular HGB CONC 30.9 g/dL (32.0-36.0); Mean Corpuscular Hemoglobin 29.7 pg (27.0-31.0); Mean Corpuscular Volume 96.2 fL (78.0-98.0); Platelet Count 115 thou/uL (130-400); Platelet Morphology Comment Appears Decreased; RBC Distribution Width 17.2 % (11.5-14.5); Red Blood Cell (RBC) Count 3.25 mill/uL (4.70-6.10); White Blood Cell (WBC) Count 4.9 thou/uL (4.8-10.8)
[2021-08-08] MEDS ORDERED: Aspirin 81 mg Enteric Coated Tablet PO SCH (09:00)
[2021-08-08] MEDS: Heparin 5,000 UNITS/ML VIAL SC SCH ×3 (09:21→20:13)
[2021-08-08] MEDS: Aspirin 81 mg Enteric Coated Tablet PO SCH (09:21)
[2021-08-08] MEDS: cefTRIAXone\\ROCEPHIN 2 GM in Sodium Chloride 0.9% 100 ML IVPB SCH (09:22)
[2021-08-08] MEDS: Octreotide Acetate 100 MCG/ML VIAL SLOW IVP SCH ×3 (09:41→20:13)
[2021-08-08] MEDS: Dextrose 5% in Water 1,000 ML IV SCH (16:57)
[2021-08-08] MEDS: Famotidine/PF 20 mg/2ml Vial SLOW IVP SCH (20:13)
[2021-08-09] MEDS: Octreotide Acetate 100 MCG/ML VIAL SLOW IVP SCH (03:04)
[2021-08-09 03:38] LABS: #Lymphocytes 0.5 thou/uL (1.20-3.40); #Monocytes 0.4 thou/uL (0.11-0.59); #Neutrophils 3.7 thou/uL (1.40-6.50); %Basophils 0.1 % (0.0-1.0); %Eosinophils 0.5 % (0.0-10.0); %Lymphocytes 10.8 % (21.0-51.0); %Monocytes 8.6 % (0.0-10.0); Hemoglobin 9.9 g/dL (14.0-18.0); Mean Corpuscular Hemoglobin 29.6 pg (27.0-31.0); Mean Corpuscular Volume 95.4 fL (78.0-98.0); Mean Platelet Volume 7.8 fL (7.4-10.4); Platelet Count 121 thou/uL (130-400); RBC Distribution Width 17.3 % (11.5-14.5); Red Blood Cell (RBC) Count 3.35 mill/uL (4.70-6.10); White Blood Cell (WBC) Count 4.6 thou/uL (4.8-10.8)
[2021-08-09 03:47] LABS: Hemoglobin A1c 6.4 % (4.0-6.0)
[2021-08-09 04:03] LABS: ALT (SGPT) 11 U/L (8-55); AST (SGOT) 29 U/L (5-34); Albumin 2.8 g/dL (3.4-4.8); Alkaline Phosphatase 71 U/L (40-110); Anion Gap 15 mmol/L (10-20); BUN (Urea Nitrogen) 40 mg/dL (8.4-25.7); Bilirubin, Total 0.5 mg/dL (0.2-1.2); Calc. Creatinine Clearance 0 mL/min (70-130); Calcium 8.7 mg/dL (7.8-10.44); Carbon Dioxide 26 mmol/L (23-31); Chloride 93 mmol/L (98-107); Glucose 212 mg/dL (83-110); Magnesium 1.9 mg/dL (1.6-2.6); Potassium 4.8 mmol/L (3.5-5.1); Protein, Total 6.8 g/dL (5.8-8.1); Sodium 129 mmol/L (136-145)
[2021-08-09] MEDS: Amiodarone 200 MG TAB PO SCH ×2 (09:20→21:39)
[2021-08-09] MEDS: Heparin 5,000 UNITS/ML VIAL SC SCH ×3 (09:20→21:40)
[2021-08-09] MEDS: Aspirin 81 mg Enteric Coated Tablet PO SCH (09:20)
[2021-08-09] MEDS: cefTRIAXone\\ROCEPHIN 2 GM in Sodium Chloride 0.9% 100 ML IVPB SCH (09:20)
[2021-08-09] MEDS ORDERED: Furosemide 20 MG/2 ML VIAL SLOW IVP SCH (10:15)
[2021-08-09] MEDS ORDERED: Insulin Regular 300 UNITS/3 ML VIAL SC PRN (17:12)
[2021-08-09] MEDS: Dextrose 5% in Water 1,000 ML IV SCH (17:57)
[2021-08-09] MEDS: Cefdinir 300 MG CAP PO SCH (21:39)
[2021-08-09] MEDS: Famotidine/PF 20 mg/2ml Vial SLOW IVP SCH (21:39)
[2021-08-10 05:27] LABS: #Eosinphils 0.1 thou/uL (0.0-0.7); #Lymphocytes 0.4 thou/uL (1.20-3.40); #Monocytes 0.5 thou/uL (0.11-0.59); #Neutrophils 4.7 thou/uL (1.40-6.50); %Lymphocytes 7.3 % (21.0-51.0); %Monocytes 8.9 % (0.0-10.0); %Neutrophils 82.8 % (42.0-75.0); Hemoglobin 9.8 g/dL (14.0-18.0); Mean Corpuscular HGB CONC 31.3 g/dL (32.0-36.0); Mean Corpuscular Hemoglobin 29.6 pg (27.0-31.0); Mean Corpuscular Volume 94.5 fL (78.0-98.0); Mean Platelet Volume 7.8 fL (7.4-10.4); Platelet Count 137 thou/uL (130-400); RBC Distribution Width 17.4 % (11.5-14.5); Red Blood Cell (RBC) Count 3.31 mill/uL (4.70-6.10); White Blood Cell (WBC) Count 5.7 thou/uL (4.8-10.8)
[2021-08-10 05:45] LABS: Anion Gap 14 mmol/L (10-20); BUN (Urea Nitrogen) 46 mg/dL (8.4-25.7); Calc. Creatinine Clearance 23 mL/min (70-130); Calcium 8.4 mg/dL (7.8-10.44); Carbon Dioxide 27 mmol/L (23-31); Chloride 95 mmol/L (98-107); Glucose 138 mg/dL (83-110); Potassium 4.5 mmol/L (3.5-5.1); Sodium 131 mmol/L (136-145)
[2021-08-10] MEDS: Amiodarone 200 MG TAB PO SCH ×2 (09:09→21:08)
[2021-08-10] MEDS: Aspirin 81 mg Enteric Coated Tablet PO SCH (09:09)
[2021-08-10] MEDS: Cefdinir 300 MG CAP PO SCH ×2 (09:09→21:08)
[2021-08-10] MEDS: Heparin 5,000 UNITS/ML VIAL SC SCH ×3 (09:10→21:11)
[2021-08-10] MEDS ORDERED: Furosemide 40 MG/4 ML VIAL SLOW IVP SCH (12:00)
[2021-08-10] MEDS: Atorvastatin Calcium 40 MG TAB PO SCH (21:09)
[2021-08-10] MEDS: Famotidine/PF 20 mg/2ml Vial SLOW IVP SCH (21:09)
[2021-08-11 05:21] LABS: Anion Gap 15 mmol/L (10-20); BUN (Urea Nitrogen) 48 mg/dL (8.4-25.7); Calc. Creatinine Clearance 22 mL/min (70-130); Calcium 8.5 mg/dL (7.8-10.44); Carbon Dioxide 26 mmol/L (23-31); Chloride 94 mmol/L (98-107); Glucose 111 mg/dL (83-110); Sodium 131 mmol/L (136-145)
[2021-08-11] MEDS: Cefdinir 300 MG CAP PO SCH ×2 (09:36→20:59)
[2021-08-11] MEDS: Aspirin 81 mg Enteric Coated Tablet PO SCH (09:36)
[2021-08-11] MEDS: Amiodarone 200 MG TAB PO SCH ×2 (09:36→20:59)
[2021-08-11] MEDS: Heparin 5,000 UNITS/ML VIAL SC SCH ×3 (09:38→21:00)
[2021-08-11] MEDS: Famotidine/PF 20 mg/2ml Vial SLOW IVP SCH (20:59)
[2021-08-11] MEDS: Atorvastatin Calcium 40 MG TAB PO SCH (20:59)
[2021-08-12 04:43] LABS: Anion Gap 15 mmol/L (10-20); BUN (Urea Nitrogen) 48 mg/dL (8.4-25.7); Calc. Creatinine Clearance 22 mL/min (70-130); Calcium 8.3 mg/dL (7.8-10.44); Carbon Dioxide 27 mmol/L (23-31); Chloride 96 mmol/L (98-107); Glucose 98 mg/dL (83-110); Potassium 3.8 mmol/L (3.5-5.1); Sodium 134 mmol/L (136-145)
[2021-08-12] MEDS ORDERED: Carvedilol 3.125 MG TAB PO SCH (09:45)
[2021-08-12] MEDS: Amiodarone 200 MG TAB PO SCH ×2 (10:14→20:40)
[2021-08-12] MEDS: Cefdinir 300 MG CAP PO SCH ×2 (10:15→20:40)
[2021-08-12] MEDS: Aspirin 81 mg Enteric Coated Tablet PO SCH (10:15)
[2021-08-12] MEDS: Heparin 5,000 UNITS/ML VIAL SC SCH ×3 (11:29→20:40)
[2021-08-12 12:02] LABS: #Eosinphils 0.1 thou/uL (0.0-0.7); #Lymphocytes 0.4 thou/uL (1.20-3.40); #Monocytes 0.5 thou/uL (0.11-0.59); #Neutrophils 5.2 thou/uL (1.40-6.50); %Basophils 0.3 % (0.0-1.0); %Lymphocytes 6.3 % (21.0-51.0); %Monocytes 8.1 % (0.0-10.0); %Neutrophils 84.4 % (42.0-75.0); Hemoglobin 9.6 g/dL (14.0-18.0); Mean Corpuscular HGB CONC 31.7 g/dL (32.0-36.0); Mean Corpuscular Hemoglobin 30.3 pg (27.0-31.0); Mean Corpuscular Volume 95.3 fL (78.0-98.0); Mean Platelet Volume 6.9 fL (7.4-10.4); Platelet Count 147 thou/uL (130-400); RBC Distribution Width 17.5 % (11.5-14.5); Red Blood Cell (RBC) Count 3.17 mill/uL (4.70-6.10); White Blood Cell (WBC) Count 6.2 thou/uL (4.8-10.8)
[2021-08-12] MEDS: Nystatin Cream 30 GM TUBE TOP SCH ×2 (16:10→23:03)
[2021-08-12] MEDS: Carvedilol 3.125 MG TAB PO SCH (16:10)
[2021-08-12] MEDS: Atorvastatin Calcium 40 MG TAB PO SCH (20:40)
[2021-08-12] MEDS: Famotidine/PF 20 mg/2ml Vial SLOW IVP SCH (23:03)
[2021-08-13 04:47] LABS: Anion Gap 13 mmol/L (10-20); BUN (Urea Nitrogen) 51 mg/dL (8.4-25.7); Calc. Creatinine Clearance 21 mL/min (70-130); Calcium 8.2 mg/dL (7.8-10.44); Carbon Dioxide 28 mmol/L (23-31); Chloride 97 mmol/L (98-107); Glucose 109 mg/dL (83-110); Potassium 3.7 mmol/L (3.5-5.1); Sodium 134 mmol/L (136-145)
[2021-08-13] MEDS: Cefdinir 300 MG CAP PO SCH (12:02)
[2021-08-13] MEDS: Aspirin 81 mg Enteric Coated Tablet PO SCH (12:02)
[2021-08-13] MEDS: Nystatin Cream 30 GM TUBE TOP SCH ×3 (12:02→22:00)
[2021-08-13] MEDS: Carvedilol 3.125 MG TAB PO SCH ×2 (12:02→18:03)
[2021-08-13] MEDS: Amiodarone 200 MG TAB PO SCH ×2 (12:02→22:00)
[2021-08-13] MEDS: Heparin 5,000 UNITS/ML VIAL SC SCH ×3 (12:02→22:00)
[2021-08-13] MEDS ORDERED: REMDESIVIR 200 MG in Sodium Chloride 0.9% 250 ML 210 ML IV SCH (18:45)
[2021-08-13] MEDS: Atorvastatin Calcium 40 MG TAB PO SCH (22:00)
[2021-08-13] MEDS: Famotidine 20 MG TAB PO SCH (22:00)
[2021-08-14 04:45] LABS: #Eosinphils 0.1 thou/uL (0.0-0.7); #Lymphocytes 0.3 thou/uL (1.20-3.40); #Monocytes 0.6 thou/uL (0.11-0.59); #Neutrophils 5.1 thou/uL (1.40-6.50); %Basophils 0.3 % (0.0-1.0); %Eosinophils 2.1 % (0.0-10.0); %Lymphocytes 4.3 % (21.0-51.0); %Monocytes 10.1 % (0.0-10.0); %Neutrophils 83.2 % (42.0-75.0); Hemoglobin 9.7 g/dL (14.0-18.0); Mean Corpuscular HGB CONC 31.7 g/dL (32.0-36.0); Mean Corpuscular Hemoglobin 29.6 pg (27.0-31.0); Mean Corpuscular Volume 93.5 fL (78.0-98.0); Mean Platelet Volume 7.1 fL (7.4-10.4); Platelet Count 158 thou/uL (130-400); RBC Distribution Width 17.7 % (11.5-14.5); Red Blood Cell (RBC) Count 3.28 mill/uL (4.70-6.10); White Blood Cell (WBC) Count 6.2 thou/uL (4.8-10.8)
[2021-08-14 05:17] LABS: ALT (SGPT) 8 U/L (8-55); AST (SGOT) 17 U/L (5-34); Albumin 2.8 g/dL (3.4-4.8); Alkaline Phosphatase 85 U/L (40-110); Anion Gap 14 mmol/L (10-20); BUN (Urea Nitrogen) 55 mg/dL (8.4-25.7); Bilirubin, Total 0.7 mg/dL (0.2-1.2); Calc. Creatinine Clearance 21 mL/min (70-130); Calcium 8.8 mg/dL (7.8-10.44); Carbon Dioxide 28 mmol/L (23-31); Chloride 95 mmol/L (98-107); Globulin 3.8 g/dL (2.4-3.5); Glucose 108 mg/dL (83-110); Potassium 3.8 mmol/L (3.5-5.1); Protein, Total 6.6 g/dL (5.8-8.1); Sodium 133 mmol/L (136-145)
[2021-08-14] MEDS: Nystatin Cream 30 GM TUBE TOP SCH ×3 (07:54→22:14)
[2021-08-14] MEDS ORDERED: REMDESIVIR 100 MG in Sodium Chloride 0.9% 250 ML 230 ML IV SCH (09:00)
[2021-08-14] MEDS: Aspirin 81 mg Enteric Coated Tablet PO SCH (10:44)
[2021-08-14] MEDS: Dexamethasone 6 MG in Sodium Chloride 0.9% 50 ML IVPB SCH (10:45)
[2021-08-14] MEDS: Heparin 5,000 UNITS/ML VIAL SC SCH ×3 (10:45→21:09)
[2021-08-14] MEDS: Amiodarone 200 MG TAB PO SCH ×2 (10:45→21:08)
[2021-08-14] MEDS: Carvedilol 3.125 MG TAB PO SCH ×2 (10:48→18:32)
[2021-08-14] MEDS ORDERED: Heparin 10,000 UNITS/ 10 ML VIAL ONE (14:06)
[2021-08-14] MEDS: Atorvastatin Calcium 40 MG TAB PO SCH (21:08)
[2021-08-14] MEDS: Famotidine 20 MG TAB PO SCH (21:08)
[2021-08-14] MEDS: HumaLOG 300 UNITS/3 ML VIAL SC PRN (21:09)
[2021-08-15 04:51] LABS: ALT (SGPT) 13 U/L (8-55); AST (SGOT) 30 U/L (5-34); Albumin 2.7 g/dL (3.4-4.8); Alkaline Phosphatase 125 U/L (40-110); Anion Gap 12 mmol/L (10-20); BUN (Urea Nitrogen) 42 mg/dL (8.4-25.7); Bilirubin, Total 0.6 mg/dL (0.2-1.2); Calc. Creatinine Clearance 25 mL/min (70-130); Calcium 8.3 mg/dL (7.8-10.44); Carbon Dioxide 28 mmol/L (23-31); Chloride 97 mmol/L (98-107); Globulin 3.4 g/dL (2.4-3.5); Glucose 212 mg/dL (83-110); Potassium 3.6 mmol/L (3.5-5.1); Protein, Total 6.1 g/dL (5.8-8.1); Sodium 133 mmol/L (136-145)
[2021-08-15 04:52] LABS: #Lymphocytes 0.4 thou/uL (1.20-3.40); #Monocytes 0.5 thou/uL (0.11-0.59); #Neutrophils 3.5 thou/uL (1.40-6.50); %Eosinophils 0.1 % (0.0-10.0); %Lymphocytes 9.9 % (21.0-51.0); %Monocytes 10.6 % (0.0-10.0); %Neutrophils 79.4 % (42.0-75.0); Anisocytosis SLIGHT = 6-15 cells (100X) (0-5/hpf); Hemoglobin 9.2 g/dL (14.0-18.0); Hypochromia SLIGHT = 6-15 cells (100X) (0-5/hpf); Large Platelets SLIGHT; MDiff Complete? YES; Mean Corpuscular HGB CONC 31.4 g/dL (32.0-36.0); Mean Corpuscular Hemoglobin 30.2 pg (27.0-31.0); Mean Corpuscular Volume 96.2 fL (78.0-98.0); Mean Platelet Volume 7.2 fL (7.4-10.4); Platelet Count 105 thou/uL (130-400); Platelet Morphology Comment Appears Decreased; Polychromasia SLIGHT = 2-3 cells (100X) (0-2/hpf); RBC Distribution Width 17.3 % (11.5-14.5); Red Blood Cell (RBC) Count 3.05 mill/uL (4.70-6.10); White Blood Cell (WBC) Count 4.4 thou/uL (4.8-10.8)
[2021-08-15] MEDS: HumaLOG 300 UNITS/3 ML VIAL SC PRN ×2 (06:36→21:50)
[2021-08-15] MEDS ORDERED: Azithromycin 250 MG TAB PO SCH (09:00)
[2021-08-15] MEDS ORDERED: Azithromycin 200 MG/5 ML Oral Suspension PO SCH (09:00)
[2021-08-15] MEDS ORDERED: Cefdinir 300 MG CAP PO SCH (09:00)
[2021-08-15] MEDS: Carvedilol 3.125 MG TAB PO SCH ×2 (10:43→17:51)
[2021-08-15] MEDS: Amiodarone 200 MG TAB PO SCH ×2 (10:43→21:51)
[2021-08-15] MEDS: Aspirin Chewable 81 MG TAB PO SCH (10:45)
[2021-08-15] MEDS: Dexamethasone 6 MG in Sodium Chloride 0.9% 50 ML IVPB SCH (11:22)
[2021-08-15] MEDS: Nystatin Cream 30 GM TUBE TOP SCH ×3 (11:22→21:52)
[2021-08-15] MEDS: Heparin 5,000 UNITS/ML VIAL SC SCH ×3 (11:24→21:52)
[2021-08-15] MEDS: Azithromycin 500 MG in Sodium Chloride 0.9% 250 ML 250 ML IVPB SCH (17:40)
[2021-08-15] MEDS ORDERED: Tuberculin PPD 0.1 ML VIAL I-DERMAL SCH (19:00)
[2021-08-15] MEDS: Famotidine 20 MG TAB PO SCH (21:51)
[2021-08-15] MEDS: Atorvastatin Calcium 40 MG TAB PO SCH (21:51)
[2021-08-16 07:14] LABS: ALT (SGPT) 15 U/L (8-55); AST (SGOT) 32 U/L (5-34); Albumin 2.4 g/dL (3.4-4.8); Alkaline Phosphatase 121 U/L (40-110); Anion Gap 16 mmol/L (10-20); BUN (Urea Nitrogen) 52 mg/dL (8.4-25.7); Bilirubin, Total 0.5 mg/dL (0.2-1.2); Calc. Creatinine Clearance 22 mL/min (70-130); Calcium 8.2 mg/dL (7.8-10.44); Carbon Dioxide 23 mmol/L (23-31); Chloride 99 mmol/L (98-107); Globulin 3.6 g/dL (2.4-3.5); Glucose 274 mg/dL (83-110); Potassium 4.3 mmol/L (3.5-5.1); Sodium 134 mmol/L (136-145)
[2021-08-16 07:55] LABS: #Lymphocytes 0.6 thou/uL (1.20-3.40); #Monocytes 0.4 thou/uL (0.11-0.59); #Neutrophils 2.8 thou/uL (1.40-6.50); %Basophils 0.1 % (0.0-1.0); %Eosinophils 0.3 % (0.0-10.0); %Monocytes 11.4 % (0.0-10.0); %Neutrophils 73.2 % (42.0-75.0); Hemoglobin 9.4 g/dL (14.0-18.0); Mean Corpuscular HGB CONC 31.5 g/dL (32.0-36.0); Mean Corpuscular Hemoglobin 30.4 pg (27.0-31.0); Mean Corpuscular Volume 96.6 fL (78.0-98.0); Mean Platelet Volume 7.1 fL (7.4-10.4); Platelet Count 120 thou/uL (130-400); RBC Distribution Width 17.6 % (11.5-14.5); White Blood Cell (WBC) Count 3.8 thou/uL (4.8-10.8)
[2021-08-16] MEDS: Amiodarone 200 MG TAB PO SCH ×2 (10:51→21:00)
[2021-08-16] MEDS: Aspirin Chewable 81 MG TAB PO SCH (10:51)
[2021-08-16] MEDS: Dexamethasone 6 MG in Sodium Chloride 0.9% 50 ML IVPB SCH (10:51)
[2021-08-16] MEDS: Carvedilol 3.125 MG TAB PO SCH ×2 (10:51→18:42)
[2021-08-16] MEDS: Nystatin Cream 30 GM TUBE TOP SCH ×3 (10:52→21:58)
[2021-08-16] MEDS: HumaLOG 300 UNITS/3 ML VIAL SC PRN (10:54)
[2021-08-16] MEDS: Heparin 5,000 UNITS/ML VIAL SC SCH ×3 (10:56→20:55)
[2021-08-16] MEDS ORDERED: Heparin 10,000 UNITS/ 10 ML VIAL ONE (14:09)
[2021-08-16] MEDS: cefTRIAXone\\ROCEPHIN 1 GM in Sodium Chloride 0.9% 100 ML IVPB SCH (14:20)
[2021-08-16] MEDS ORDERED: CEFAZOLIN 2 GM in Sodium Chloride 0.9% 100 ML IVPB SCH (16:45)
[2021-08-16] MEDS: Azithromycin 500 MG in Sodium Chloride 0.9% 250 ML 250 ML IVPB SCH (20:59)
[2021-08-16] MEDS: Famotidine 20 MG TAB PO SCH (20:59)
[2021-08-16] MEDS: Atorvastatin Calcium 40 MG TAB PO SCH (21:00)
[2021-08-17 04:46] LABS: #Lymphocytes 0.6 thou/uL (1.20-3.40); #Monocytes 0.4 thou/uL (0.11-0.59); #Neutrophils 3.7 thou/uL (1.40-6.50); %Basophils 0.9 % (0.0-1.0); %Eosinophils 0.1 % (0.0-10.0); %Lymphocytes 11.7 % (21.0-51.0); %Monocytes 8.5 % (0.0-10.0); %Neutrophils 78.8 % (42.0-75.0); Mean Corpuscular HGB CONC 31.1 g/dL (32.0-36.0); Mean Corpuscular Hemoglobin 30.1 pg (27.0-31.0); Mean Corpuscular Volume 96.9 fL (78.0-98.0); Mean Platelet Volume 7.7 fL (7.4-10.4); Platelet Count 112 thou/uL (130-400); RBC Distribution Width 17.6 % (11.5-14.5); Red Blood Cell (RBC) Count 3.33 mill/uL (4.70-6.10); White Blood Cell (WBC) Count 4.7 thou/uL (4.8-10.8)
[2021-08-17 04:58] LABS: Anion Gap 12 mmol/L (10-20); BUN (Urea Nitrogen) 38 mg/dL (8.4-25.7); Calc. Creatinine Clearance 28 mL/min (70-130); Calcium 8.2 mg/dL (7.8-10.44); Carbon Dioxide 29 mmol/L (23-31); Chloride 97 mmol/L (98-107); Glucose 212 mg/dL (83-110); Potassium 3.7 mmol/L (3.5-5.1); Sodium 134 mmol/L (136-145)
[2021-08-17] MEDS ORDERED: READ PPD TEST SITE PO SCH (09:00)
[2021-08-17] MEDS: Dexamethasone 6 MG in Sodium Chloride 0.9% 50 ML IVPB SCH (09:07)
[2021-08-17] MEDS: Carvedilol 3.125 MG TAB PO SCH ×2 (09:07→17:24)
[2021-08-17] MEDS: Aspirin Chewable 81 MG TAB PO SCH (09:08)
[2021-08-17] MEDS: Amiodarone 200 MG TAB PO SCH ×2 (09:08→21:20)
[2021-08-17] MEDS: Heparin 5,000 UNITS/ML VIAL SC SCH ×3 (09:08→21:20)
[2021-08-17] MEDS: Nystatin Cream 30 GM TUBE TOP SCH ×3 (09:09→21:21)
[2021-08-17] MEDS: cefTRIAXone\\ROCEPHIN 1 GM in Sodium Chloride 0.9% 100 ML IVPB SCH ×2 (09:27→13:36)
[2021-08-17] MEDS: HumaLOG 300 UNITS/3 ML VIAL SC PRN ×3 (13:36→21:22)
[2021-08-17] MEDS: Azithromycin 250 MG TAB PO SCH (17:23)
[2021-08-17] MEDS: Famotidine 20 MG TAB PO SCH (21:20)
[2021-08-17] MEDS: Atorvastatin Calcium 40 MG TAB PO SCH (21:20)
[2021-08-18 05:11] LABS: Anion Gap 11 mmol/L (10-20); BUN (Urea Nitrogen) 47 mg/dL (8.4-25.7); Calc. Creatinine Clearance 26 mL/min (70-130); Calcium 8.5 mg/dL (7.8-10.44); Carbon Dioxide 29 mmol/L (23-31); Chloride 99 mmol/L (98-107); Glucose 220 mg/dL (83-110); Potassium 3.9 mmol/L (3.5-5.1); Sodium 135 mmol/L (136-145)
[2021-08-18 05:15] LABS: #Lymphocytes 0.6 thou/uL (1.20-3.40); #Monocytes 0.3 thou/uL (0.11-0.59); #Neutrophils 3.4 thou/uL (1.40-6.50); %Eosinophils 0.1 % (0.0-10.0); %Lymphocytes 13.4 % (21.0-51.0); %Monocytes 7.7 % (0.0-10.0); %Neutrophils 78.8 % (42.0-75.0); Hemoglobin 9.9 g/dL (14.0-18.0); Mean Corpuscular HGB CONC 31.2 g/dL (32.0-36.0); Mean Corpuscular Hemoglobin 30.1 pg (27.0-31.0); Mean Corpuscular Volume 96.6 fL (78.0-98.0); Mean Platelet Volume 7.7 fL (7.4-10.4); Platelet Count 101 thou/uL (130-400); RBC Distribution Width 17.5 % (11.5-14.5); Red Blood Cell (RBC) Count 3.28 mill/uL (4.70-6.10); White Blood Cell (WBC) Count 4.3 thou/uL (4.8-10.8)
[2021-08-18] MEDS: HumaLOG 300 UNITS/3 ML VIAL SC PRN ×4 (06:21→20:46)
[2021-08-18] MEDS ORDERED: Loperamide HCl 2 MG CAP PO PRN (08:19)
[2021-08-18] MEDS ORDERED: Senokot S 8.6-50 MG TAB PO PRN (08:19)
[2021-08-18] MEDS ORDERED: GUAIFENESIN SF SOLN 200 MG/10 ML UDCUP PO PRN (08:19)
[2021-08-18] MEDS ORDERED: Calcium Carbonate 500 MG ChewTAB PO PRN (08:19)
[2021-08-18] MEDS ORDERED: hydrALAZINE 20 MG/ML VIAL SLOW IVP PRN (08:19)
[2021-08-18] MEDS ORDERED: Metoclopramide HCl 10 MG/2 ML VIAL IVP PRN (08:19)
[2021-08-18] MEDS ORDERED: Cepastat Lozenges 1 LOZ PO PRN (08:19)
[2021-08-18] MEDS ORDERED: Moisturizing Cream (Eucerin) 113 GM JAR TOP PRN (08:19)
[2021-08-18] MEDS ORDERED: Artificial Tear Sol 15 ML BOT EA EYE PRN (08:19)
[2021-08-18] MEDS ORDERED: Albuterol 200 PUFF (6.7GM INHALER) INH PRN (08:20)
[2021-08-18] MEDS ORDERED: Melatonin 3 MG TAB PO PRN (08:21)
[2021-08-18] MEDS ORDERED: Dexamethasone 4 mg/ml Vial ONE (09:02)
[2021-08-18] MEDS: Aspirin Chewable 81 MG TAB PO SCH (09:32)
[2021-08-18] MEDS: Amiodarone 200 MG TAB PO SCH ×2 (09:32→20:44)
[2021-08-18] MEDS: Folic Acid/Vit B Comp W-C PO SCH (09:32)
[2021-08-18] MEDS: Heparin 5,000 UNITS/ML VIAL SC SCH ×3 (09:32→20:44)
[2021-08-18] MEDS: Carvedilol 3.125 MG TAB PO SCH ×2 (09:32→17:30)
[2021-08-18] MEDS: Nystatin Cream 30 GM TUBE TOP SCH ×3 (09:33→20:44)
[2021-08-18] MEDS: Dexamethasone 6 MG in Sodium Chloride 0.9% 50 ML IVPB SCH ×2 (09:56→11:35)
[2021-08-18] MEDS: cefTRIAXone\\ROCEPHIN 1 GM in Sodium Chloride 0.9% 100 ML IVPB SCH (15:21)
[2021-08-18] MEDS: Azithromycin 250 MG TAB PO SCH (17:30)
[2021-08-18] MEDS: Atorvastatin Calcium 40 MG TAB PO SCH (20:44)
[2021-08-19 05:22] LABS: #Lymphocytes 0.5 thou/uL (1.20-3.40); #Monocytes 0.2 thou/uL (0.11-0.59); %Eosinophils 0.3 % (0.0-10.0); %Lymphocytes 12.5 % (21.0-51.0); %Neutrophils 81.3 % (42.0-75.0); Hemoglobin 9.3 g/dL (14.0-18.0); Mean Corpuscular HGB CONC 30.3 g/dL (32.0-36.0); Mean Corpuscular Hemoglobin 29.8 pg (27.0-31.0); Mean Corpuscular Volume 98.2 fL (78.0-98.0); Mean Platelet Volume 8.4 fL (7.4-10.4); Platelet Count 104 thou/uL (130-400); RBC Distribution Width 17.5 % (11.5-14.5); Red Blood Cell (RBC) Count 3.14 mill/uL (4.70-6.10); White Blood Cell (WBC) Count 3.7 thou/uL (4.8-10.8)
[2021-08-19 05:34] LABS: CRP (Inflammatory) 0.89 mg/dL (= or < 0.5)
[2021-08-19 05:37] LABS: Anion Gap 12 mmol/L (10-20); BUN (Urea Nitrogen) 52 mg/dL (8.4-25.7); Calc. Creatinine Clearance 25 mL/min (70-130); Calcium 8.6 mg/dL (7.8-10.44); Carbon Dioxide 28 mmol/L (23-31); Chloride 99 mmol/L (98-107); Glucose 232 mg/dL (83-110); Magnesium 1.9 mg/dL (1.6-2.6); Potassium 4.1 mmol/L (3.5-5.1); Sodium 135 mmol/L (136-145)
[2021-08-19] MEDS: HumaLOG 300 UNITS/3 ML VIAL SC PRN ×3 (05:51→21:58)
[2021-08-19] MEDS ORDERED: Heparin 10,000 UNITS/ 10 ML VIAL ONE (08:13)
[2021-08-19] MEDS ORDERED: Dexamethasone 4 mg/ml Vial SLOW IVP SCH (09:00)
[2021-08-19] MEDS: Folic Acid/Vit B Comp W-C PO SCH (10:02)
[2021-08-19] MEDS: Carvedilol 3.125 MG TAB PO SCH ×2 (10:02→16:57)
[2021-08-19] MEDS: Aspirin Chewable 81 MG TAB PO SCH (10:02)
[2021-08-19] MEDS: Amiodarone 200 MG TAB PO SCH ×2 (10:03→21:56)
[2021-08-19] MEDS: Heparin 5,000 UNITS/ML VIAL SC SCH ×3 (10:11→21:57)
[2021-08-19] MEDS: Nystatin Cream 30 GM TUBE TOP SCH ×3 (10:15→22:00)
[2021-08-19] MEDS: cefTRIAXone\\ROCEPHIN 1 GM in Sodium Chloride 0.9% 100 ML IVPB SCH (12:51)
[2021-08-19] MEDS ORDERED: traMADol HCl 50 MG TAB PO PRN (16:23)
[2021-08-19] MEDS: Azithromycin 250 MG TAB PO SCH (16:58)
[2021-08-19] MEDS: Atorvastatin Calcium 40 MG TAB PO SCH (21:56)
[2021-08-20 05:23] LABS: Anion Gap 12 mmol/L (10-20); BUN (Urea Nitrogen) 44 mg/dL (8.4-25.7); Calc. Creatinine Clearance 28 mL/min (70-130); Calcium 8.5 mg/dL (7.8-10.44); Carbon Dioxide 29 mmol/L (23-31); Chloride 98 mmol/L (98-107); Glucose 314 mg/dL (83-110); Potassium 4.4 mmol/L (3.5-5.1); Sodium 135 mmol/L (136-145)
[2021-08-20 05:29] LABS: #Lymphocytes 0.6 thou/uL (1.20-3.40); #Monocytes 0.3 thou/uL (0.11-0.59); #Neutrophils 4.1 thou/uL (1.40-6.50); %Eosinophils 0.1 % (0.0-10.0); %Lymphocytes 11.9 % (21.0-51.0); %Monocytes 6.8 % (0.0-10.0); %Neutrophils 81.2 % (42.0-75.0); Hemoglobin 9.4 g/dL (14.0-18.0); Mean Corpuscular HGB CONC 31.3 g/dL (32.0-36.0); Mean Corpuscular Hemoglobin 29.6 pg (27.0-31.0); Mean Corpuscular Volume 94.7 fL (78.0-98.0); Mean Platelet Volume 8.1 fL (7.4-10.4); Platelet Count 89 thou/uL (130-400); Platelet Morphology Comment Appears Decreased; RBC Distribution Width 17.4 % (11.5-14.5); Red Blood Cell (RBC) Count 3.16 mill/uL (4.70-6.10)
[2021-08-20] MEDS: Aspirin Chewable 81 MG TAB PO SCH (09:36)
[2021-08-20] MEDS: Amiodarone 200 MG TAB PO SCH ×2 (09:36→21:00)
[2021-08-20] MEDS: Heparin 5,000 UNITS/ML VIAL SC SCH ×3 (09:36→21:00)
[2021-08-20] MEDS: Folic Acid/Vit B Comp W-C PO SCH (09:36)
[2021-08-20] MEDS: Carvedilol 3.125 MG TAB PO SCH ×2 (09:36→18:34)
[2021-08-20] MEDS: Nystatin Cream 30 GM TUBE TOP SCH ×3 (09:37→21:00)
[2021-08-20] MEDS ORDERED: Protamine Sulfate 50 MG/5 ML VIAL ONE (13:39)
[2021-08-20] MEDS ORDERED: Heparin 10,000 UNITS/ 10 ML VIAL ONE (13:39)
[2021-08-20] MEDS ORDERED: fentaNYL Citrate/PF 100 MCG/2 ML SYRINGE ONE (14:24)
[2021-08-20] MEDS ORDERED: CEFAZOLIN 2 GM VIAL ONE (14:40)
[2021-08-20] MEDS ORDERED: Ropivacaine 0.5% HCl/PF (150 MG/30 ML VIAL) ONE (14:40)
[2021-08-20] MEDS ORDERED: cefTRIAXone\\ROCEPHIN 1 GM VIAL ONE (14:41)
[2021-08-20] MEDS ORDERED: Sodium Chloride 0.9% 200 ML ONE (14:41)
[2021-08-20] MEDS ORDERED: Promethazine HCl 25 MG/ML VIAL IM PRN (15:45)
[2021-08-20] MEDS ORDERED: Promethazine HCl 25 MG/ML VIAL IVPB PRN (15:45)
[2021-08-20] MEDS ORDERED: Fentanyl 100 MCG/2 ML VIAL ONE (18:06)
[2021-08-20] MEDS: cefTRIAXone\\ROCEPHIN 1 GM in Sodium Chloride 0.9% 100 ML IVPB SCH (18:33)
[2021-08-20] MEDS: Azithromycin 250 MG TAB PO SCH (18:34)
[2021-08-20] MEDS: Atorvastatin Calcium 40 MG TAB PO SCH (21:00)
[2021-08-21] MEDS ORDERED: Heparin 10,000 UNITS/ 10 ML VIAL ONE (08:54)
[2021-08-21] MEDS: Nystatin Cream 30 GM TUBE TOP SCH ×3 (09:35→20:24)
[2021-08-21] MEDS: Aspirin Chewable 81 MG TAB PO SCH ×2 (10:10→10:11)
[2021-08-21] MEDS: Folic Acid/Vit B Comp W-C PO SCH (10:11)
[2021-08-21] MEDS: Carvedilol 3.125 MG TAB PO SCH ×2 (10:11→18:07)
[2021-08-21] MEDS: Amiodarone 200 MG TAB PO SCH ×2 (10:11→20:24)
[2021-08-21] MEDS: Heparin 5,000 UNITS/ML VIAL SC SCH ×3 (10:11→20:30)
[2021-08-21] MEDS ORDERED: Epoetin (ESRD) 20,000 UNITS/ML IVP SCH (10:30)
[2021-08-21 10:49] LABS: ALT (SGPT) Less than 7 U/L (8-55); AST (SGOT) 18 U/L (5-34); Albumin 2.7 g/dL (3.4-4.8); Alkaline Phosphatase 85 U/L (40-110); Anion Gap 13 mmol/L (10-20); BUN (Urea Nitrogen) 50 mg/dL (8.4-25.7); Bilirubin, Total 0.5 mg/dL (0.2-1.2); Calc. Creatinine Clearance 26 mL/min (70-130); Calcium 8.4 mg/dL (7.8-10.44); Carbon Dioxide 29 mmol/L (23-31); Chloride 100 mmol/L (98-107); Globulin 3.4 g/dL (2.4-3.5); Glucose 273 mg/dL (83-110); Potassium 4.8 mmol/L (3.5-5.1); Protein, Total 6.1 g/dL (5.8-8.1); Sodium 137 mmol/L (136-145)
[2021-08-21] MEDS ORDERED: EPOETIN ALFA-EPBX (ESRD) 10,000 UNIT/ML VIAL IVP SCH (12:00)
[2021-08-21] MEDS: cefTRIAXone\\ROCEPHIN 1 GM in Sodium Chloride 0.9% 100 ML IVPB SCH (19:18)
[2021-08-21] MEDS: Azithromycin 250 MG TAB PO SCH (19:18)
[2021-08-21] MEDS: Epoetin (ESRD) 10,000 UNITS/ML VIAL IVP SCH (20:23)
[2021-08-21] MEDS: Atorvastatin Calcium 40 MG TAB PO SCH (20:24)
[2021-08-21] MEDS: HumaLOG 300 UNITS/3 ML VIAL SC PRN (23:26)
[2021-08-22] MEDS: HumaLOG 300 UNITS/3 ML VIAL SC PRN ×4 (05:43→21:58)
[2021-08-22] MEDS: Nystatin Cream 30 GM TUBE TOP SCH ×3 (09:29→22:08)
[2021-08-22] MEDS: Carvedilol 3.125 MG TAB PO SCH ×2 (09:30→17:35)
[2021-08-22] MEDS: Amiodarone 200 MG TAB PO SCH ×2 (09:30→21:07)
[2021-08-22] MEDS: Folic Acid/Vit B Comp W-C PO SCH (09:30)
[2021-08-22] MEDS: Heparin 5,000 UNITS/ML VIAL SC SCH ×3 (09:32→22:08)
[2021-08-22] MEDS: Atorvastatin Calcium 40 MG TAB PO SCH (21:07)
[2021-08-23 05:02] LABS: #Lymphocytes 0.8 thou/uL (1.20-3.40); #Monocytes 0.4 thou/uL (0.11-0.59); #Neutrophils 5.2 thou/uL (1.40-6.50); %Basophils 0.1 % (0.0-1.0); %Eosinophils 0.2 % (0.0-10.0); %Monocytes 5.9 % (0.0-10.0); %Neutrophils 81.7 % (42.0-75.0); Mean Corpuscular Hemoglobin 29.6 pg (27.0-31.0); Mean Corpuscular Volume 95.6 fL (78.0-98.0); Mean Platelet Volume 9.3 fL (7.4-10.4); Platelet Count 87 thou/uL (130-400); RBC Distribution Width 17.4 % (11.5-14.5); Red Blood Cell (RBC) Count 3.04 mill/uL (4.70-6.10); White Blood Cell (WBC) Count 6.3 thou/uL (4.8-10.8)
[2021-08-23 05:23] LABS: Anion Gap 12 mmol/L (10-20); BUN (Urea Nitrogen) 49 mg/dL (8.4-25.7); Calc. Creatinine Clearance 26 mL/min (70-130); Calcium 8.5 mg/dL (7.8-10.44); Carbon Dioxide 29 mmol/L (23-31); Chloride 98 mmol/L (98-107); Glucose 184 mg/dL (83-110); Potassium 4.3 mmol/L (3.5-5.1); Sodium 135 mmol/L (136-145)
[2021-08-23] MEDS: Carvedilol 3.125 MG TAB PO SCH ×2 (09:20→17:57)
[2021-08-23] MEDS: Aspirin Chewable 81 MG TAB PO SCH (09:20)
[2021-08-23] MEDS: Amiodarone 200 MG TAB PO SCH (09:20)
[2021-08-23] MEDS: Folic Acid/Vit B Comp W-C PO SCH (09:20)
[2021-08-23] MEDS: Heparin 5,000 UNITS/ML VIAL SC SCH ×3 (09:26→21:27)
[2021-08-23] MEDS: Nystatin Cream 30 GM TUBE TOP SCH ×3 (09:29→21:28)
[2021-08-23] MEDS ORDERED: Heparin 10,000 UNITS/ 10 ML VIAL ONE (09:31)
[2021-08-23] MEDS: Epoetin (ESRD) 10,000 UNITS/ML VIAL IVP SCH (16:10)
[2021-08-23] MEDS: Atorvastatin Calcium 40 MG TAB PO SCH (21:27)
[2021-08-24] MEDS: Sodium Chloride 0.65% Nasal 44 ML BOT EA NARE PRN (06:16)
[2021-08-24] MEDS: HumaLOG 300 UNITS/3 ML VIAL SC PRN ×2 (07:30→17:57)
[2021-08-24] MEDS: Folic Acid/Vit B Comp W-C PO SCH (10:31)
[2021-08-24] MEDS: Aspirin Chewable 81 MG TAB PO SCH (10:31)
[2021-08-24] MEDS: Amiodarone 200 MG TAB PO SCH (10:32)
[2021-08-24] MEDS: Nystatin Cream 30 GM TUBE TOP SCH ×3 (10:42→21:28)
[2021-08-24] MEDS: Carvedilol 3.125 MG TAB PO SCH ×2 (10:42→17:51)
[2021-08-24] MEDS ORDERED: Lansoprazole 3 MG/ML ORAL SUSPENSION PER TUBE SCH (10:45)
[2021-08-24] MEDS: Heparin 5,000 UNITS/ML VIAL SC SCH ×3 (13:14→20:38)
[2021-08-24] MEDS: Atorvastatin Calcium 40 MG TAB PO SCH (21:27)
[2021-08-25] MEDS ORDERED: Albuterol Sulfate 2.5 mg/3 ml Neb NEB PRN (04:37)
[2021-08-25 06:25] LABS: #Lymphocytes 0.6 thou/uL (1.20-3.40); #Monocytes 0.5 thou/uL (0.11-0.59); #Neutrophils 4.9 thou/uL (1.40-6.50); %Eosinophils 0.2 % (0.0-10.0); %Monocytes 8.3 % (0.0-10.0); %Neutrophils 81.6 % (42.0-75.0); Hemoglobin 9.5 g/dL (14.0-18.0); Mean Corpuscular HGB CONC 31.4 g/dL (32.0-36.0); Mean Corpuscular Hemoglobin 30.3 pg (27.0-31.0); Mean Corpuscular Volume 96.6 fL (78.0-98.0); Mean Platelet Volume 8.7 fL (7.4-10.4); Platelet Count 97 thou/uL (130-400); RBC Distribution Width 17.6 % (11.5-14.5); Red Blood Cell (RBC) Count 3.13 mill/uL (4.70-6.10)
[2021-08-25 06:42] LABS: Anion Gap 14 mmol/L (10-20); BUN (Urea Nitrogen) 44 mg/dL (8.4-25.7); Calc. Creatinine Clearance 24 mL/min (70-130); Calcium 8.5 mg/dL (7.8-10.44); Carbon Dioxide 29 mmol/L (23-31); Chloride 97 mmol/L (98-107); Glucose 125 mg/dL (83-110); Sodium 136 mmol/L (136-145)
[2021-08-25] MEDS: Amiodarone 200 MG TAB PO SCH (09:48)
[2021-08-25] MEDS: Aspirin Chewable 81 MG TAB PO SCH (09:49)
[2021-08-25] MEDS: Folic Acid/Vit B Comp W-C PO SCH (09:49)
[2021-08-25] MEDS: Nystatin Cream 30 GM TUBE TOP SCH ×3 (09:49→21:32)
[2021-08-25] MEDS: Carvedilol 3.125 MG TAB PO SCH ×2 (10:42→17:51)
[2021-08-25] MEDS: Heparin 5,000 UNITS/ML VIAL SC SCH ×3 (10:42→21:31)
[2021-08-25] MEDS: Lansoprazole 3 MG/ML ORAL SUSPENSION PER TUBE SCH (12:17)
[2021-08-25] MEDS: Sodium Chloride 0.65% Nasal 44 ML BOT EA NARE PRN (16:40)
[2021-08-25] MEDS: Diclofenac 1% 100 GM GEL TP SCH ×2 (18:42→21:24)
[2021-08-25] MEDS ORDERED: Mirtazapine 15 MG TAB PO SCH (21:00)
[2021-08-25] MEDS: Atorvastatin Calcium 40 MG TAB PO SCH (21:24)
[2021-08-26] MEDS ORDERED: Heparin 10,000 UNITS/ 10 ML VIAL ONE (08:54)
[2021-08-26 10:00] VITALS: BMI 26.1
[2021-08-26] MEDS: Carvedilol 3.125 MG TAB PO SCH (14:34)
[2021-08-26] MEDS: Diclofenac 1% 100 GM GEL TP SCH ×2 (14:35→14:49)
[2021-08-26] MEDS: Lansoprazole 3 MG/ML ORAL SUSPENSION PER TUBE SCH (14:36)
[2021-08-26] MEDS: Heparin 5,000 UNITS/ML VIAL SC SCH ×2 (14:36→14:52)
[2021-08-26] MEDS: Nystatin Cream 30 GM TUBE TOP SCH ×2 (14:36→14:53)
[2021-08-26] MEDS: Folic Acid/Vit B Comp W-C PO SCH (14:48)
[2021-08-26] MEDS: Amiodarone 200 MG TAB PO SCH (14:51)
[2021-08-26] MEDS: Aspirin Chewable 81 MG TAB PO SCH (14:51)
[2021-08-26 16:25] VITALS: BP 120/64; TEMP 97.5
== END 2021-08-26 16:45 | DRG 264 ==
LOC: ERS 11:12 → CCU 15:02 → IMCU/EMU 08-08 15:04 → 2NO 08-09 17:48 → CCU 08-20 21:27 → 2NO 08-21 16:54
PROVIDERS: ADMIT Internal Medicine; ATTEND Internal Medicine
PROC: 5A1D70Z Performance of Urinary Filtration, Intermittent, Less than 6 Hours Per Day (ICD-10-PCS; principal; 2021-08-07)
PROC: 8E0ZXY6 Isolation (ICD-10-PCS; 2021-08-12)
PROC: 06HY33Z Insertion of Infusion Device into Lower Vein, Percutaneous Approach (ICD-10-PCS; 2021-08-16)
PROC: 031B0ZF Bypass Right Radial Artery to Lower Arm Vein, Open Approach (ICD-10-PCS; 2021-08-20)
PROC: 0JH63XZ Insertion of Tunneled Vascular Access Device into Chest Subcutaneous Tissue and Fascia, Percutaneous Approach (ICD-10-PCS; 2021-08-20)
PROC: 02HV33Z Insertion of Infusion Device into Superior Vena Cava, Percutaneous Approach (ICD-10-PCS; 2021-08-20)
PROC: B548ZZA Ultrasonography of Superior Vena Cava, Guidance (ICD-10-PCS; 2021-08-20)
DX: I13.2 Hypertensive heart and chronic kidney disease with heart failure and with stage 5 chronic kidney disease, or end stage renal disease (principal); I50.43 Acute on chronic combined systolic (congestive) and diastolic (congestive) heart failure; I21.A1 Myocardial infarction type 2; J96.01 Acute respiratory failure with hypoxia; G93.41 Metabolic encephalopathy; N18.6 End stage renal disease; U07.1 COVID-19; J12.82 Pneumonia due to coronavirus disease 2019; N17.9 Acute kidney failure, unspecified; E87.2 Acidosis; E87.1 Hypo-osmolality and hyponatremia; I48.11 Longstanding persistent atrial fibrillation; Z66 Do not resuscitate; Z20.822 Contact with and (suspected) exposure to COVID-19; I25.10 Atherosclerotic heart disease of native coronary artery without angina pectoris; F32.A Depression, unspecified; K44.9 Diaphragmatic hernia without obstruction or gangrene; E87.5 Hyperkalemia; E11.649 Type 2 diabetes mellitus with hypoglycemia without coma; I44.7 Left bundle-branch block, unspecified; E11.22 Type 2 diabetes mellitus with diabetic chronic kidney disease; D63.1 Anemia in chronic kidney disease; F03.90 Unspecified dementia, unspecified severity, without behavioral disturbance, psychotic disturbance, mood disturbance, and anxiety; I25.5 Ischemic cardiomyopathy; I80.8 Phlebitis and thrombophlebitis of other sites; E88.09 Other disorders of plasma-protein metabolism, not elsewhere classified; I73.9 Peripheral vascular disease, unspecified; E11.51 Type 2 diabetes mellitus with diabetic peripheral angiopathy without gangrene; Z98.890 Other specified postprocedural states; Z95.1 Presence of aortocoronary bypass graft; Z90.49 Acquired absence of other specified parts of digestive tract; Z95.5 Presence of coronary angioplasty implant and graft; Z87.891 Personal history of nicotine dependence; Z88.8 Allergy status to other drugs, medicaments and biological substances; Z79.84 Long term (current) use of oral hypoglycemic drugs; Z79.82 Long term (current) use of aspirin; Z79.899 Other long term (current) drug therapy; Z95.810 Presence of automatic (implantable) cardiac defibrillator; E11.65 Type 2 diabetes mellitus with hyperglycemia; T38.0X5A Adverse effect of glucocorticoids and synthetic analogues, initial encounter
CPT/HCPCS: 36415; 36416; 36556; 36600; 70450; 71045; 76770; 80048; 80053; 81001; 82140; 82533; 82550; 82553; 82805; 83036; 83605; 83690; 83735; 83880; 84100; 84145; 84439; 84443; 84484; 85025; 86140; 86580; 86704; 86706; 86803; 87040; 87086; 87340; 90935; 93005; 93306; 93970; 94640; 94660; 96365; 96366; 96375; C1752; C1776; G0257; J0282; J0456; J0610; J0696; J1100; J1160; J1642; J1644; J1815; J1940; J2354; J2720; J2795; J2930; J3010; J3490; J7050; J7070; J7611; J7620; J7999; Q4081; S0028; U0002; U0003; U0005